=== PATIENT | female | born 1955 | race Caucasian/White ===

== ENCOUNTER 2020-07-14 07:47 | Emergency (ER) | payer OTHER, SELFPAY ==
[2020-07-14] VITALS (54 sets, daily range): BP systolic 105–175; BP diastolic 64–98; PULSE 69–166; RESP 10–28; TEMP 36.4; O2SAT 91–98; BMI 53.0
--- NOTE | 2020-07-14 07:58 | DI.RAD.S_ITS ---
PROCEDURE: XR CHEST 1V INDICATIONS: fast heart rate TECHNIQUE: One view of the chest was acquired. COMPARISON: [facility], CR, XR CHEST 1VW (PORTABLE), 06/24/2015, 15:31. FINDINGS: Surgical changes and devices: None. Lungs and pleura: Lungs are clear. No pleural effusions or pneumothorax. Mediastinum: Mediastinal contours appear normal. Heart size is enlarged, as before. Bones and chest wall: No suspicious bony lesions. Overlying soft tissues appear unremarkable. IMPRESSION: Cardiomegaly. No acute pulmonary findings. Dictated by: Laura Garcia M.D. on 07/14/2020 at 8:50 Approved by: Laura Garcia M.D. on 07/14/2020 at 8:51
--- NOTE | 2020-07-14 08:09 | ED_ITS ---
HPI - Arrhythmia/Palpitations General Chief Complaint: Arrhythmia/Palpitations Stated Complaint: Irregular heart beat and anxiety, feel fluttery Time Seen by Provider: 07/14/20 07:54 Source: patient Mode of arrival: Wheelchair Limitations: no limitations History of Present Illness HPI narrative: 65-year-old female comes to the emergency department with complaint of a fluttery anxious feeling in her chest. Patient states she woke up this morning feeling like her heartbeat was fast. She checked her pulse and it was fast. Patient states she did have difficulty falling asleep and did go to bed until 3:00 a.m.. She denies any prior issues with cardiac arrhythmias in the past. She denies any chest pain or pressure, no shortness of breath, no lightheadedness or passing out, no nausea or vomiting, no pain or pressure radiating from the neck jaw, back or abdomen she denies any nausea or vomiting. No recent diarrhea or constipation. No urinary symptoms. She denies any swelling in her extremities. She does not have any known cardiac history, she does take triamterene and hydrochlorothiazide for hypertension and levothyroxine. She has never had a cardiac catheterization or stress test. She has had multiple surgeries most recently hysterectomy 3 years ago for stage I endometrial cancer, x 3, ruptured uterus. Patient denies any tobacco, alcohol or illicit drugs. Her father had an AR at age 36 and at age 60 of colon cancer, she has 2 sisters she knows 1 has difficulties with blood pressure but no other known cardiac family history. Patient is in the process of establishing with Dr. Monroy, she is accompanied by her . Related Data Previous Rx's Medication Instructions Recorded apixaban [Eliquis] 5 mg PO BID #60 tab 07/14/20 metoprolol tartrate 12.5 mg PO BID #60 tab 07/14/20 Allergies Allergy/AdvReac Type Severity Reaction Status Date / Time No Known Drug Allergies Allergy Verified 07/14/20 08:06 Review of Systems Review of Systems ROS Unobtainable: All systems reviewed & are unremarkable except as noted in HPI and below Patient History Medical History (Updated 07/14/20 @ 10:11 by Whitley Jeffers DO) Hypertension (Acute) Hypothyroid (Acute) Surgical History (Updated 07/14/20 @ 08:11 by Whitley Jeffers DO) H/O: hysterectomy (Acute) Social History Smoking Status: Never smoker Smoking Status: Never smoker alcohol intake frequency: 0-2 drinks per day Substance Use Type: does not use Exam Narrative Exam Narrative: GENERAL: Alert and oriented x three, obese female in mild d istress HEENT: Head normocephalic, atraumatic, EOMI, pupils reactive, face symmetric, moist mucous membranes NECK: Supple, full range of motion CARDIOVASCULAR: Tachycardic and occasional irregular rate and rhythm without murmurs, rubs or gallops. No JVD. No edema bilateral lower extremities or up per extremities. RESPIRATORY: Breath sounds equal bilaterally, no wheezes rales or rhonchi. ABDOMEN: Soft, nontender. Normoactive bowel sounds all 4 quadrants. No guarding or rebound, rigidity, no mass : No CVA tenderness EXTREMITIES: Normal range of motion, no clubbing or edema. Neurovascularly intact NEUROLOGICAL: Cranial nerves II through XII grossly intact. Moving all extremities SKIN: Warm, dry, no petechiae, no rashes or lesions. Initial Vital Signs Initial Vital Signs: Vital Signs Pulse Rate 84 07/14/20 07:55 Pulse Oximetry 98 07/14/20 07:55 Procedures Cardioversion Consent Signed: Yes Indication: rapid afib with rvr not responding to medication Stability: Stable Number of attempts (shocks): 1 Joules used: 150 Cardiac rhythm post-cardioversion: sinus rhythm. Procedural Sedation Consent signed: Yes Time out performed: Yes Indication: cardioversion ASA Class: II Mallampati Airway Classification: Class III Time of Last PO Intake: 22:00 Preparation: color television console monitor applied, pulse oximeter, capnometry used, supplemental O2 applied, suction/airway equipment at bedside and IV secured IV Etomidate dose (mg): 10 ED Sedation Level: Moderate (Concious) Patient Tolerated Procedure: Well Complications: none Scores CHADS-VASc Congestive heart failure: no Hypertension: yes Age 75 years or older: no Diabetes mellitus: no Stroke, TIA, or TE: no Vascular disease: no Age 65 to 74 years: no Sex category (female): Female CHADS-VASc Score: 2 PERC Score Age greater than or equal to 50 years: Yes Heart rate greater than or equal to 100 bpm: Yes Room Air O2 Sat less than 95%: No Unilateral leg swelling: No Recent trauma or surgery: No Hemoptysis: No Prior PE or DVT: No Hormone Use: No Total PERC Score: 2 Wells' Criteria for PE Clinical signs and symptoms of DVT: No PE is #1 Dx or equally likely: No Heart rate > 100: Yes Immobilization at least 3 days or surg in previous 4 weeks: No History of PE or DVT: No Hemoptysis: No Malignancy w/Treatment within 6 months or palliative: No Wells' PE Score total: 1.5 Course Course Course Narrative: Patient had an occasionally irregular rhythm but was an elevated rate so was given 6 mg of adenosine which did slow the patient's heart rate about 100, but did appear to be quite irregular and then returned to the 150-170 range. Plan to start Cardizem with 20mg and likely cardizem gtt. Patient and I briefly discussion cardioversion as she would likely be a candidate but she is reluctant at this time. Patient received 20mg cardizem which improved heart rate to 100-120 range but continues to be irregular and fast with occasionally episodes of 150. Cardizem gtt started with improvement in rate although breakthrough of fast rate intermittently. Orders Ordered: ED Orders 07/14/20 09:20 COVID19 -ED/INPAT/OR/L&D Stat 07/14/20 10:01 CT angio chest PE protocol Stat Discontinued Medications Adenosine (Adenocard) 6 mg IV NOW ONE Stop: 07/14/20 08:04 Last Admin: 07/14/20 08:16 Dose: 6 mg Documented by: ASNDRA Apixaban (Eliquis) 5 mg PO NOW ONE Stop: 07/14/20 11:12 Last Admin: 07/14/20 11:21 Dose: 5 mg Documented by: JENNY Diltiazem HCl (Cardizem) 20 mg IV NOW ONE Stop: 07/14/20 08:24 Last Admin: 07/14/20 08:26 Dose: 20 mg Documented by: SANDRA Diltiazem HCl (Cardizem) 20 mg IV NOW ONE Stop: 07/14/20 08:26 Last Admin: 07/14/20 09:03 Dose: Not Given Documented by: JENNY Etomidate (Amidate) 10 mg IV NOW ONE Stop: 10/25/20 11:18 Last Admin: 07/14/20 12:00 Dose: 10 mg Documented by: JENNY Sodium Chloride (Normal Saline 0.9%) 1,000 mls @ 1,000 mls/hr IV BOLUS ONE Stop: 07/14/20 08:56 Last Infusion: 07/14/20 11:55 Dose: 0 mls/hr Documented by: Infusion: 07/14/20 08:38 Dose: 200 mls/hr Documented by: Admin: 07/14/20 08:16 Dose: 1,000 mls/hr Documented by: SANDRA DILTIAZEM (Diltiazem 125 Mg/125 Ml-D5w) 125 mg in 125 mls @ 5 mls/hr IV TITRATE MIREILLE; Protocol Last Titration: 07/14/20 11:55 Dose: 0 mg/hr, 0 mls/hr Documented by: Titration: 07/14/20 09:52 Dose: 15 mg/hr, 15 mls/hr Documented by: Titration: 07/14/20 09:02 Dose: 10 mg/hr, 10 mls/hr Documented by: Admin: 07/14/20 08:36 Dose: 5 mg/hr, 5 mls/hr Documented by: SANDRA Potassium Chloride (Potassium Chloride) 40 meq PO NOW ONE Stop: 07/14/20 09:26 Last Admin: 07/14/20 09:58 Dose: 40 meq Documented by: JENNY Consultations Consultation #1: Spoke with Cardiology, Dr. Kennedy recommends cardioversion with eliquis 5mg po prior to procedure and to start on beta alessandra as outpatient. Time: 10:50 Vital Signs Vital signs: Vital Signs - 8 hr 07/14/20 09:59 07/14/20 10:00 07/14/20 10:05 Pulse Rate 142 H 141 H 141 H Respiratory Rate 20 21 21 Blood Pressure 137/83 Blood Pressure [Right Wrist] Pulse Oximetry 95 95 95 07/14/20 10:10 07/14/20 10:30 07/14/20 10:32 Pulse Rate 141 H 138 H 138 H Respiratory Rate 20 20 10 L Blood Pressure 141/88 H Blood Pressure [Right Wrist] Pulse Oximetry 95 96 07/14/20 10:35 07/14/20 10:40 07/14/20 10:45 Pulse Rate 138 H 138 H 140 H Respiratory Rate 17 18 14 Blood Pressure 128/66 Blood Pressure [Right Wrist] Pulse Oximetry 95 94 95 07/14/20 10:50 07/14/20 10:55 07/14/20 11:00 Pulse Rate 140 H 138 H 141 H Respiratory Rate 19 18 16 Blood Pressure 129/73 Blood Pressure [Right Wrist] Pulse Oximetry 95 95 94 07/14/20 11:05 07/14/20 11:10 07/14/20 11:15 Pulse Rate 140 H 140 H 141 H Respiratory Rate 18 16 17 Blood Pressure 141/79 H Blood Pressure [Right Wrist] Pulse Oximetry 95 95 95 07/14/20 11:22 07/14/20 11:25 07/14/20 11:30 Pulse Rate 140 H 141 H 142 H Respiratory Rate 18 Blood Pressure Blood Pressure [Right Wrist] Pulse Oximetry 95 95 95 07/14/20 11:35 07/14/20 11:36 07/14/20 11:40 Pulse Rate 141 H 140 H 142 H Respiratory Rate 28 H 18 15 Blood Pressure 141/80 H Blood Pressure [Right Wrist] Pulse Oximetry 95 95 95 07/14/20 11:45 07/14/20 11:50 07/14/20 11:55 Pulse Rate 142 H 142 H 143 H Respiratory Rate 25 H 18 18 Blood Pressure Blood Pressure [Right Wrist] Pulse Oximetry 94 93 93 07/14/20 11:56 07/14/20 12:00 07/14/20 12:05 Pulse Rate 143 H 143 H 80 Respiratory Rate 17 16 18 Blood Pressure 147/83 H 135/77 Blood Pressure [Right Wrist] 141/80 H Pulse Oximetry 95 94 94 07/14/20 12:10 07/14/20 12:11 07/14/20 12:15 Pulse Rate 78 77 77 Respiratory Rate 22 15 19 Blood Pressure 118/71 122/70 Blood Pressure [Right Wrist] 122/70 Pulse Oximetry 94 94 94 07/14/20 12:20 07/14/20 12:25 07/14/20 12:30 Pulse Rate 75 74 78 Respiratory Rate 20 19 20 Blood Pressure 112/66 110/66 114/68 Blood Pressure [Right Wrist] Pulse Oximetry 94 94 94 07/14/20 12:35 07/14/20 12:40 07/14/20 12:45 Pulse Rate 71 69 70 Respiratory Rate 10 L 16 18 Blood Pressure 112/67 122/65 117/67 Blood Pressure [Right Wrist] Pulse Oximetry 93 91 94 07/14/20 12:50 07/14/20 12:55 07/14/20 13:00 Pulse Rate 71 69 71 Respiratory Rate 24 18 21 Blood Pressure 116/67 113/66 113/64 Blood Pressure [Right Wrist] Pulse Oximetry 94 93 95 MDM - Arrhythmia/Palpitations Lab Data Attestation: I reviewed the patient's lab results. Lab results narrative: Patient's potassium is low at 3.1 and replaced orally. CBC,coags do not show major change. Ddimer is above age cutoff at 89 even with age adjustment. Glucose is 119, with normal troponin and slightly elevated bnp at 342. TSH is normal. covid 19 is negative. Result diagrams: 07/14/20 08:10 07/14/20 08:50 Labs: Lab Results 07/14/20 07/14/20 07/14/20 Range/Units 08:10 08:10 08:50 WBC 8.6 (4.5-11.0) X10^3/uL RBC 4.77 (4.0-5.2) X10^6/uL Hgb 14.1 (12.0-16.0) g/dL Hct 42.0 (36-46) % MCV 87.9 (80-100) fL MCH 29.6 (26-34) PG MCHC 33.7 (30-36) % RDW 13.5 (11.6-14.8) % Plt Count 262 (150-400) X10^3/uL Neut % (Auto) 50.5 (50-75) % Lymph % (Auto) 37.6 (25-40) % Wilson % (Auto) 7.8 (3-14) % Eos % (Auto) 3.2 (2-4) % Baso % (Auto) 0.9 (0-2) % Neut # (Auto) 4300 (5742-8511) /uL Lymph # (Auto) 3200 (9832-4451) /uL Wilson # (Auto) 700 (0-900) /uL Eos # (Auto) 300 (0-450) /uL Baso # (Auto) 100 (0-100) /uL PT 10.9 (10.1-12.7) SECONDS INR 0.9 (0.9-1.3) APTT 33 (26.4-36.2) SECONDS D-Dimer (<230) ng/mL Sodium 139 (137-145) mmol/L Potassium 3.1 L (3.4-5.1) mmol/L Chloride 105 (98-107) mmol/L Carbon Dioxide 30 (22-32) mmol/L BUN 16 (7-17) mg/dL Creatinine 0.59 (0.52-1.04) mg/dL Estimated GFR > 60.0 (>60) mL/min BUN/Creatinine Ratio 27.1 H (6-22) Glucose 119 H (80-110) mg/dL Calcium 8.7 (8.4-10.2) mg/dL Magnesium (1.6-2.3) mg/dL Total Bilirubin 0.9 (0.2-1.3) mg/dL AST 24 (14-36) IU/L ALT 29 (<35) IU/L Alkaline Phosphatase 51 (38-126) U/L Total Creatine Kinase (30-135) U/L CK-MB (CK-2) CK-MB (CK-2) Rel Index Troponin I (0.01-0.034) ng/mL NT-Pro-B Natriuret Pep (<125) pg/mL Total Protein 6.6 (6.3-8.2) g/dL Albumin 3.9 (3.5-5.0) g/dL Globulin 2.7 (1.7-4.1) g/dL Albumin/Globulin Ratio 1.4 (1.0-2.8) TSH (0.47-4.68) uIU/mL COVID-19 PCR (Negative) 07/14/20 07/14/20 07/14/20 Range/Units 08:50 08:50 08:50 WBC (4.5-11.0) X10^3/uL RBC (4.0-5.2) X10^6/uL Hgb (12.0-16.0) g/dL Hct (36-46) % MCV (80-100) fL MCH (26-34) PG MCHC (30-36) % RDW (11.6-14.8) % Plt Count (150-400) X10^3/uL Neut % (Auto) (50-75) % Lymph % (Auto) (25-40) % Wilson % (Auto) (3-14) % Eos % (Auto) (2-4) % Baso % (Auto) (0-2) % Neut # (Auto) (4030-1193) /uL Lymph # (Auto) (8317-9277) /uL Wilson # (Auto) (0-900) /uL Eos # (Auto) (0-450) /uL Baso # (Auto) (0-100) /uL PT (10.1-12.7) SECONDS INR (0.9-1.3) APTT (26.4-36.2) SECONDS D-Dimer (<230) ng/mL Sodium (137-145) mmol/L Potassium (3.4-5.1) mmol/L Chloride (98-107) mmol/L Carbon Dioxide (22-32) mmol/L BUN (7-17) mg/dL Creatinine (0.52-1.04) mg/dL Estimated GFR (>60) mL/min BUN/Creatinine Ratio (6-22) Glucose (80-110) mg/dL Calcium (8.4-10.2) mg/dL Magnesium 1.9 (1.6-2.3) mg/dL Total Bilirubin (0.2-1.3) mg/dL AST (14-36) IU/L ALT (<35) IU/L Alkaline Phosphatase (38-126) U/L Total Creatine Kinase 62 (30-135) U/L CK-MB (CK-2) TNP CK-MB (CK-2) Rel Index TNP Troponin I 0.012 (0.01-0.034) ng/mL NT-Pro-B Natriuret Pep 342 H (<125) pg/mL Total Protein (6.3-8.2) g/dL Albumin (3.5-5.0) g/dL Globulin (1.7-4.1) g/dL Albumin/Globulin Ratio (1.0-2.8) TSH 2.82 (0.47-4.68) uIU/mL COVID-19 PCR (Negative) 07/14/20 07/14/20 Range/Units 08:50 09:20 WBC (4.5-11.0) X10^3/uL RBC (4.0-5.2) X10^6/uL Hgb (12.0-16.0) g/dL Hct (36-46) % MCV (80-100) fL MCH (26-34) PG MCHC (30-36) % RDW (11.6-14.8) % Plt Count (150-400) X10^3/uL Neut % (Auto) (50-75) % Lymph % (Auto) (25-40) % Wilson % (Auto) (3-14) % Eos % (Auto) (2-4) % Baso % (Auto) (0-2) % Neut # (Auto) (6067-4980) /uL Lymph # (Auto) (7342-1016) /uL Wilson # (Auto) (0-900) /uL Eos # (Auto) (0-450) /uL Baso # (Auto) (0-100) /uL PT (10.1-12.7) SECONDS INR (0.9-1.3) APTT (26.4-36.2) SECONDS D-Dimer 387 H (<230) ng/mL Sodium (137-145) mmol/L Potassium (3.4-5.1) mmol/L Chloride (98-107) mmol/L Carbon Dioxide (22-32) mmol/L BUN (7-17) mg/dL Creatinine (0.52-1.04) mg/dL Estimated GFR (>60) mL/min BUN/Creatinine Ratio (6-22) Glucose (80-110) mg/dL Calcium (8.4-10.2) mg/dL Magnesium (1.6-2.3) mg/dL Total Bilirubin (0.2-1.3) mg/dL AST (14-36) IU/L ALT (<35) IU/L Alkaline Phosphatase (38-126) U/L Total Creatine Kinase (30-135) U/L CK-MB (CK-2) CK-MB (CK-2) Rel Index Troponin I (0.01-0.034) ng/mL NT-Pro-B Natriuret Pep (<125) pg/mL Total Protein (6.3-8.2) g/dL Albumin (3.5-5.0) g/dL Globulin (1.7-4.1) g/dL Albumin/Globulin Ratio (1.0-2.8) TSH (0.47-4.68) uIU/mL COVID-19 PCR Negative (Negative) Point of Care Testing Test Results Not applicable Imaging Data Chest x-ray: Radiologist's Impresson: [address] [address] XRay Report Signed Patient: Kiana Altamirano DMR#: [id number] : 7Acct:[id number] Age/Sex: 65 / FDate of Service: 07/14/20 Loc: ED Accession Number: [id number] Procedure: XR chest 1V Ordering Provider: Whitley Jeffers D.O. PROCEDURE: XR CHEST 1V INDICATIONS: fast heart rate TECHNIQUE: One view of the chest was acquired. COMPARISON: [facility], , XR CHEST 1VW (PORTABLE), 06/24/2015, 15:31. FINDINGS: Surgical changes and devices: None. Lungs and pleura: Lungs are clear. No pleural effusions or pneumothorax. Mediastinum: Mediastinal contours appear normal. Heart size is enlarged, as before. Bones and chest wall: No suspicious bony lesions. Overlying soft tissues a ppear unremarkable. IMPRESSION: Cardiomegaly. No acute pulmonary findings. Dictated by: Laura Garcia M.D. on 07/14/2020 at 8:50 Approved by: Laura Garcia M.D. on 07/14/2020 at 8:51 CT scan - chest: Radiologist's Impresson: NO PE, positive for cardiomegaly. ECG Data Attestation: I personally reviewed and interpreted this ECG as follows: Prior ECG tracings: not available for review Interpretation: Rate of 156, QRS of 100, QTc of 431 patient has regular regular heart rate with rapid ventricular response. No ST elevation appreciated, patient does have some depression in lateral leads V4 through 6 approximately 1 mm. EKG#2. AFib with RVR, rate of 160 QRS of [address]TC [address] No new [address] changes appreciated. EKG3. Sinus rhythm rate of 76 P are 152 QRS of 104 and QTC of 450. No ST el evation or depression appreciated. MDM Narrative Medical decision making narrative: Patient comes in with AFib with RVR, marco ent's did respond to Cardizem initially but then heart rate became more consistent in the 140s. Patient case was discussed with Cardiology and he recommends a dose of Eliquis and metoprolol at home. Patient is open to cardioversion. She tolerated the procedure well and resume to normal sinus rhyt hm. Potassium was somewhat low and was replaced. Discharge Plan Departure Patient Disposition: Home Clinical Impression: Atrial fibrillation with RVR, Hypokalemia Discharge Date/Time: 07/14/20 13:36 Instructions: DI for Atrial Fibrillation Activity Restrictions/Additional Instructions: Follow-up with cardiology in the next 1-2 weeks for recheck. Call for an appointment on Wednesday morning. Having a repeat potassium level checked in the next several days. Continue metoprolol as prescribed until you see Cardiology. 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 Continue home medications as prescribed. Prescriptions: New metoprolol tartrate 25 mg tablet 12.5 mg PO BID Qty: 60 RF: 0 Eliquis 5 mg tablet 5 mg PO BID Qty: 60 RF: 0 Referrals: Jyoti Kennedy MD [Physician] - Jocelyn Monroy DO [Physician] -
[2020-07-14] MEDS: SODIUM CHLORIDE 0.9% 1,000 ML 1000 ML IV (08:16)
[2020-07-14] MEDS: ADENOSINE 6 MG/2 ML VIAL IV (08:16)
[2020-07-14 08:20] LABS: Add Manual Diff / Slide Review NO; Basophils Absolute Auto 100 /uL (0-100); Basophils Percent Auto 0.9 % (0-2); Eosinophils Absolute Auto 300 /uL (0-450); Eosinophils Percent Auto 3.2 % (2-4); Hemoglobin 14.1 g/dL (12.0-16.0); Lymphocytes Absolute Auto 3200 /uL (1100-4500); Lymphocytes Percent Auto 37.6 % (25-40); Mean Corpuscular HGB Conc 33.7 % (30-36); Mean Corpuscular Hemoglobin 29.6 PG (26-34); Mean Corpuscular Volume 87.9 fL (80-100); Monocytes Absolute Auto 700 /uL (0-900); Monocytes Percent Auto 7.8 % (3-14); Neutrophils Absolute Auto 4300 /uL (1500-7000); Neutrophils Percent Auto 50.5 % (50-75); Platelet Count 262 X10^3/uL (150-400); Red Blood Cell Count 4.77 X10^6/uL (4.0-5.2); Red Cell Distribution Width 13.5 % (11.6-14.8); White Blood Cell Count 8.6 X10^3/uL (4.5-11.0)
[2020-07-14] MEDS: dilTIAZem 5 MG/ML SDV 20 MG IV (08:26)
[2020-07-14 08:29] LABS: INR 0.9 (0.9-1.3); Prothrombin Time 10.9 SECONDS (10.1-12.7)
[2020-07-14 08:31] LABS: PTT Partial Thromboplastin Tim 33 SECONDS (26.4-36.2)
[2020-07-14] MEDS: DILTIAZEM 125 MG/125 ML PIGGYBACK IV (08:36)
[2020-07-14 08:45] LABS: Calcium 8.7 mg/dL (8.4-10.2); Carbon Dioxide 30 mmol/L (22-32)
[2020-07-14 08:56] LABS: Troponin I 0.012 ng/mL (0.01-0.034)
[2020-07-14 09:15] LABS: Thyroid Stimulating Hormone 2.82 uIU/mL (0.47-4.68)
[2020-07-14 09:16] LABS: Alanine Aminotransferase 29 IU/L (<35); Albumin 3.9 g/dL (3.5-5.0); Albumin Globulin Ratio 1.4 (1.0-2.8); Alkaline Phosphatase 51 U/L (38-126); Aspartate Aminotransferase 24 IU/L (14-36); BUN Creatinine Ratio 27.1 (6-22); Bilirubin Total 0.9 mg/dL (0.2-1.3); Blood Urea Nitrogen 16 mg/dL (7-17); Chloride 105 mmol/L (98-107); Creatine Kinase 62 U/L (30-135); Estimated Glomerular Filt Rate > 60.0 mL/min (>60); Globulin 2.7 g/dL (1.7-4.1); Glucose 119 mg/dL (80-110); HEMOLYSIS < 15 (0-50); Magnesium 1.9 mg/dL (1.6-2.3); Potassium 3.1 mmol/L (3.4-5.1); Sodium 139 mmol/L (137-145); Total Protein 6.6 g/dL (6.3-8.2)
[2020-07-14 09:22] LABS: NT-proBNP (BNP-Adult 18+) 342 pg/mL (<125)
[2020-07-14 09:40] LABS: D Dimer 387 ng/mL (<230)
[2020-07-14 09:43] LABS: COVID19 -Nasal RAPID Negative (Negative)
[2020-07-14] MEDS: POTASSIUM CHLORIDE 20 MEQ/15 ML UDC 40 MEQ PO (09:58)
--- NOTE | 2020-07-14 10:01 | DI.CT.S_ITS ---
PROCEDURE: CT ANGIO CHEST PE PROTOCOL INDICATIONS: atrial fibrillation w/ rvr, r/o pe TECHNIQUE: After the administration of intravenous contrast, 2 mm thick sections acquired from the pulmonary apices to the posterior costophrenic angles. 3-dimensional maximum intensity projection (MIP) coronal and sagittal reformats were then acquired through the thorax. For radiation dose reduction, the following was used: automated exposure control, adjustment of mA and/or kV according to patient size. COMPARISON: None. FINDINGS: Image quality: Excellent. Pulmonary arteries: Pulmonary arteries are normal in size, and demonstrate no intraluminal filling defects to suggest central pulmonary embolism. Lungs and pleura: Lungs are clear. No pleural effusions or pneumothorax. Central and peripheral airways are patent. Mediastinum: Heart size is enlarged, without pericardial effusion. No mediastinal or hilar adenopathy. Thoracic aorta is normal in caliber and enhancement. Scattered atheromatous calcifications are present within the aortic arch. Esophagus is normal in caliber, without hiatal hernia. Bones and chest wall: No suspicious bony lesions. Ribs and thoracic spine appear intact throughout. Thyroid gland is unremarkable . No axillary or supraclavicular adenopathy. Abdomen: Visualized upper abdominal solid organs appear normal in the early arterial phase of enhancement. IMPRESSION: 1. No acute pulmonary embolus. 2. Cardiomegaly. Dictated by: Laura Garcia M.D. on 07/14/2020 at 10:34 Approved by: Laura Garcia M.D. on 07/14/2020 at 10:36
[2020-07-14] MEDS: APIXABAN 5 MG TABLET PO (11:21)
[2020-07-14] MEDS: ETOMIDATE 2 MG/ML 10 ML VIAL 10 MG IV (12:00)
== END 2020-07-14 13:36 | disposition home or self-care (01) ==
PROVIDERS: Emergency Provider Emergency Medicine
DX: I48.91 Unspecified atrial fibrillation (principal); E87.6 Hypokalemia; I10 Essential (primary) hypertension; E03.9 Hypothyroidism, unspecified; R00.0 Tachycardia, unspecified
CPT/HCPCS: 36415; 71045; 71275; 80053; 82550; 83735; 83880; 84443; 84484; 85025; 85379; 85610; 85730; 87635; 92960; 93005; 93010; 94770; 96365; 96366; 96375; 99152; 99285; J0153; Q9967

== ENCOUNTER → 2020-07-23 10:26 | Outpatient (CLI) | payer OTHER, SELFPAY ==
[2020-07-23 12:10] LABS: INR 1.1 (0.9-1.3); Prothrombin Time 12.7 SECONDS (10.1-12.7)
[2020-07-23 12:30] LABS: BUN Creatinine Ratio 21.7 (6-22); Blood Urea Nitrogen 15 mg/dL (7-17); Calcium 9.2 mg/dL (8.4-10.2); Carbon Dioxide 33 mmol/L (22-32); Chloride 99 mmol/L (98-107); Cholesterol 162 mg/dL (140-199); Estimated Glomerular Filt Rate > 60.0 mL/min (>60); Glucose 100 mg/dL (80-110); HDL Cholesterol 50 mg/dL (40-60); HEMOLYSIS < 15 (0-50); LDL Cholesterol Calculated 98 mg/dL (<100); Magnesium 2.1 mg/dL (1.6-2.3); Potassium 3.8 mmol/L (3.4-5.1); Sodium 139 mmol/L (137-145); Triglycerides 70 mg/dL (35-150)
== END ==
PROVIDERS: PCP Family Medicine; Referring Provider Family Medicine; Visit Provider Family Medicine
DX: E66.9 Obesity, unspecified (principal); E87.6 Hypokalemia; I10 Essential (primary) hypertension; I48.91 Unspecified atrial fibrillation
CPT/HCPCS: 36415; 80048; 80061; 83735; 85610

== ENCOUNTER → 2020-07-29 14:04 | Outpatient (CLI) | payer OTHER, SELFPAY ==
--- NOTE | 2020-08-14 08:48 | P.HOLT.S_ITS ---
Dynamite [employer]ooter Report Referral & Results Date Patient Seen: 07/29/20 Requesting provider: Jocelyn Monroy Indication: Atrial fibrillation Duration of monitoring (days): 3 Diary information: There were no patient triggered events and only 1 patient diary entry Patient's diary entry was associated with (within 45 seconds) sinus rhythm and ventricular ectopy Data: Minimum heart rate identified was 45 beats per minute at 01:14 a.m. on 07/30/2020 Maximum sinus heart rate identified was 124 beats per minute at 10:35 on 08/01/2020 Maximum overall heart rate was 184 beats per minute at 18:28 on 07/29/2020 during a 13 beat run of SVT Less than 1% of identified beats were supraventricular ectopic in origin Approximately 5.2% of identified beats were ventricular ectopic in origin which includes a 32 second run of ventricular bigeminy and 35 second run of ventricular trigeminy There is 6 runs of SVT the longest being 13 beats at a rate of 184 beats per minute as above. 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 No episodes of atrial fibrillation identified on this study
== END ==
PROVIDERS: PCP Family Medicine; Referring Provider Family Medicine; Visit Provider Family Medicine
DX: I48.91 Unspecified atrial fibrillation (principal)
CPT/HCPCS: 0296T; 0298T

== ENCOUNTER → 2020-08-13 14:43 | Outpatient (CLI) | payer OTHER, SELFPAY ==
--- NOTE | 2020-08-13 14:44 | DI.ECHO.S_ITS ---
[place] +---------+ [facility] +---------+ : : [address] [place] : : : : [id number] : : : : Phone: [phone] Echocardiogram Report + + :Name: AMY SANDERS Study Date: 08/13/2020 Height: 62 in : :[facility] Weight: 290 lb : : Gender: Female BSA: 2.2 m2 : :: 1955 Age: 65 yrs BP: 149/87 mmHg: :Reason For Study: ATRIAL FIBRILLATION : :Ordering Physician: JAZMYN, : :KAUSHAL Performed By: Judit Zhang : :Referring: KAUSHAL ELDRIDGE : + + Interpretation Summary The study quality was technically difficult. Probable mild LVH There is an anterior echo-free space consistent with a fat pad. There is no significant valvular heart disease. Procedure: A two-dimensional transthoracic echocardiogram with color flow and Doppler was performed. The study quality was technically difficult. There is no prior echocardiogram noted for this patient. Most of the acoustic windows were suboptimal, but the best imaging was obtained from the apical window. The patient was in sinus rhythm with heart rates between 66-76 bpm during the exam. Left Ventricle: The left ventricle is normal in size. Probable mild LVH. The ejection fraction is estimated to be 65-70%. Left ventricular wall motion is normal. Diastolic parameters suggest a pseudonormalization pattern, consistent with probable elevated filling pressures. Right Ventricle: The right ventricle is normal in size and function. Atria: The left atrium is mildly dilated. Right atrial size is normal. The interatrial septum grossly appears intact with no obvious evidence for an atrial septal defect. Mitral Valve: The mitral valve is normal in structure and function. There is mild mitral annular calcification. There is no mitral regurgitation noted. Aortic Valve: The aortic valve is not well visualized. There is no aortic valve stenosis. No aortic regurgitation is present. Tricuspid Valve: The tricuspid valve is not well visualized, but is grossly normal. No tricuspid regurgitation. Pulmonic Valve: The pulmonic valve is not well visualized. There is no pulmonic valvular regurgitation. Great Vessels: The aortic root is normal size. The ascending aorta is mildly enlarged. The IVC is of normal diameter and collapses greater than 50% with a sniff. This suggests a low right atrial pressure of 3 mm Hg. Pericardium/ Pleura There is no pericardial effusion. There is an anterior echo-free space consistent with a fat pad. There is no pleural effusion. MMode/2D Measurements & Calculations LVIDd: 4.5 cm LVOT diam: 2.4 cm LVIDs: 2.9 cm Ao root diam: 3.2 cm FS: 36.3 % asc Aorta Diam: 3.5 cm IVSd: 1.3 cm Ao Arch Diam (Prox Trans): 2.8 cm LVPWd: 1.3 cm LV conrad. diameter/BSA (cm/m^2): 2.0 LV sys. diameter/BSA (cm/m^2): 1.3 LA A2 area: 22.7 cm2 RA long axis: 6.0 cm LA A4 area: 25.8 cm2 RA area: 22.3 cm2 LA length (vol): 5.9 cm RA vol: 70.9 ml LA vol: 84.9 ml RA : 31.7 ml/m2 LA vol index: 37.9 ml/m2 IVC diam: 1.2 cm RVD1 (basal): 3.6 cm TAPSE: 1.8 cm Doppler Measurements & Calculations Ao V2 max: 149.1 cm/sec LVOT Max Arturo: 87.2 cm/sec Ao V2 mean: 91.7 cm/sec LV V1 max P.0 mmHg Ao max P.9 mmHg LV V1 VTI: 17.4 cm Ao mean P.1 mmHg ANETTE(I,D): 2.5 cm2 Ao V2 VTI: 30.4 cm ANETTE(V,D): 2.6 cm2 sev ratio: 0.57 ANETTE indexed to BSA (cm^2/m^2): 1.1 MV E max arturo: 84.7 cm/sec PA V2 max: 73.7 cm/sec MV A max arturo: 87.3 cm/sec PA V2 mean: 51.3 cm/sec MV E/A: 0.97 PA mean P.2 mmHg Med Peak E' Arturo: 4.5 cm/sec PA pr(Accel): 49.9 mmHg E/E' med: 18.9 Lat Peak E' Arturo: 6.5 cm/sec E/E' lat: 13.0 E/e' average: 16.0 MV dec time: 0.31 sec SV(LVOT): 76.8 ml Reading Physician:04:20 PM
== END ==
PROVIDERS: PCP Family Medicine; Referring Provider Family Medicine; Visit Provider Family Medicine
DX: I48.91 Unspecified atrial fibrillation (principal); I77.89 Other specified disorders of arteries and arterioles
CPT/HCPCS: 93306

== ENCOUNTER → 2020-12-20 13:31 | Outpatient (CLI) | payer OTHER, SELFPAY ==
[2020-12-20] MEDS: COVID-19 VACC #1, MRNA(MOD) 100 MCG/0.5 ML VIAL IM (13:42)
== END ==
PROVIDERS: PCP Family Medicine; Visit Provider Internal Medicine
DX: Z23 Encounter for immunization (principal)
CPT/HCPCS: 0011A; 91301

== ENCOUNTER 2021-01-06 03:55 | Emergency (ER) | payer OTHER, SELFPAY ==
[2021-01-06 03:59] VITALS: BP 138/103; PULSE 150; RESP 25; TEMP 37.1; O2SAT 96; BMI 56.2
[2021-01-06] MEDS: ONDANSETRON 4 MG/2 ML INJ IV (04:21)
[2021-01-06] MEDS: SODIUM CHLORIDE 0.9% 1,000 ML 125 ML IV (04:22)
[2021-01-06 04:25] LABS: Add Manual Diff / Slide Review NO; Basophils Absolute Auto 0 /uL (0-100); Basophils Percent Auto 0.5 % (0-2); Eosinophils Absolute Auto 200 /uL (0-450); Eosinophils Percent Auto 2.6 % (2-4); Hematocrit 41.9 % (36-46); Hemoglobin 13.9 g/dL (12.0-16.0); Lymphocytes Absolute Auto 3700 /uL (1100-4500); Lymphocytes Percent Auto 43.2 % (25-40); Mean Corpuscular HGB Conc 33.1 % (30-36); Mean Corpuscular Hemoglobin 29.4 PG (26-34); Mean Corpuscular Volume 88.8 fL (80-100); Monocytes Absolute Auto 500 /uL (0-900); Neutrophils Absolute Auto 4100 /uL (1500-7000); Neutrophils Percent Auto 47.7 % (50-75); Platelet Count 272 X10^3/uL (150-400); Red Blood Cell Count 4.72 X10^6/uL (4.0-5.2); Red Cell Distribution Width 13.1 % (11.6-14.8); White Blood Cell Count 8.5 X10^3/uL (4.5-11.0)
[2021-01-06 04:33] LABS: BUN Creatinine Ratio 21.1 (6-22); Blood Urea Nitrogen 16 mg/dL (7-17); Calcium 9.5 mg/dL (8.4-10.2); Carbon Dioxide 26 mmol/L (22-32); Chloride 102 mmol/L (98-107); Creatine Kinase 51 U/L (30-135); Estimated Glomerular Filt Rate > 60.0 mL/min (>60); Glucose 112 mg/dL (80-110); HEMOLYSIS < 15 (0-50); Magnesium 1.9 mg/dL (1.6-2.3); Potassium 3.5 mmol/L (3.4-5.1); Sodium 138 mmol/L (137-145)
[2021-01-06 04:41] LABS: NT-proBNP (BNP-Adult 18+) 274 pg/mL (<125)
[2021-01-06 04:44] LABS: Troponin I < 0.012 ng/mL (0.01-0.034)
[2021-01-06 04:46] VITALS: BP 118/71; PULSE 70; RESP 18; O2SAT 94
[2021-01-06 04:50] VITALS: BP 123/73; PULSE 71; RESP 22; O2SAT 95
[2021-01-06] MEDS: propofoL 200 MG/20 ML VIAL 100 MG IV (04:50)
[2021-01-06 04:55] VITALS: BP 127/76; PULSE 70; RESP 20; O2SAT 95
[2021-01-06 05:00] VITALS: BP 122/76; PULSE 69; RESP 17; O2SAT 96
--- NOTE | 2021-01-06 05:09 | ED.ARRPALP ---
HPI - Arrhythmia/Palpitations General Chief Complaint: Arrhythmia/Palpitations Stated Complaint: states rapid heart rate Time Seen by Provider: 01/06/21 03:56 Source: patient Mode of arrival: Wheelchair Limitations: no limitations History of Present Illness HPI narrative: 65-year-old female nonsmoker with history of atrial fibrillation, on Eliquis presents with her in the chief complaint of feeling anxious and noting a rapid irregular heart rhythm since waking about 3:00 a.m.. She states she went to bed largely in her normal state of health and woke up, with a sensation that she had to urinate when she noted how she was feeling. She has palpitations and a rapid rate but denies any significant chest pain or shortness of breath. She is not dizzy nor lightheaded but does feel a bit fatigued. She has been on Eliquis for quite some time and denies missing even a single dose. MD complaint: rapid heart beat and heart racing Onset (ago): hour(s) Duration: constant Severity: moderate Context: occurred during rest Arrhythmia history: atrial fibrillation Treatments prior to arrival: vagal maneuvers and beta-alessandra Related Data Home Medications Medication Instructions Recorded Confirmed levothyroxine 25 mcg capsule 25 mcg PO DAILY 07/19/20 07/19/20 triamterene 37.5 1 tab PO DAILY 07/19/20 07/19/20 mg-hydrochlorothiazide 25 mg tablet Previous Rx's Medication Instructions Recorded apixaban 5 mg tablet 5 mg PO BID #180 tab 08/19/20 metoprolol tartrate 25 mg tablet 12.5 mg PO BID #60 tab 11/07/20 Allergies Allergy/AdvReac Type Severity Reaction Status Date / Time Penicillins Allergy Unk Verified 07/19/20 16:43 Review of Systems Constitutional Constitutional: Denies chills, Denies fatigue, Denies fever(s), Denies frequent falls, Denies lethargy and Denies weakness Eyes Eyes: Denies change in vision, Denies eye discharge, Denies irritation and Denies loss of vision ENT Ears, Nose, Mouth, and Throat: Denies change in voice, Denies dizziness, Denies neck pain, Denies sore throat and Denies throat swelling Cardiovascular Cardiovascular: Denies chest pain, Reports irregular heart rhythm, Denies lightheadedness, Reports palpitations, Denies dyspnea, Denies dyspnea on exertion and Denies orthopnea Respiratory Respiratory: Denies cough, Denies dyspnea, Denies dyspnea on exertion and Denies wheezing Gastrointestinal Gastrointestinal: Denies abdominal pain, Denies change in bowel habits, Denies diarrhea, Denies nausea and Denies vomiting Musculoskeletal Musculoskeletal: Denies neck pain and Denies numbness Integumentary/Breasts Skin/Breast: Denies pruritus, Denies erythema, Denies rash and Denies wounds Neurologic Neurologic: Denies behavioral changes, Denies confusion, Denies dizziness, Denies frequent falls, Denies loss of vision, Denies numbness and Denies weakness Psychiatric Psychiatric: Denies anxiety, Denies behavioral changes, Denies confusion, Denies depression, Denies homicidal ideation and Denies suicidal ideation Endocrine Endocrine: Denies fatigue, Denies flushing and Reports palpitations Hematologic/Lymphatic Hematologic/Lymphatic: Denies easy bruising Allergic/Immunologic Allergic/Immunologic: Denies urticaria, Denies throat swelling and Denies wheezing Patient History Medical History Anxiety (~1998) Atrial fibrillation, new onset Chicken pox Endometrial cancer, grade I (~02/2017) H/O Hendricks's palsy (~1988) History of endometrial cancer Hx of ectopic Hypertension (~2014) Hypothyroid (~2014) Measles Meningitis Mumps Pharyngeal spasm Plantar warts (~1998) Pulmonary nodule less than 6 cm determined by computed tomography of lung Rubella Tracheitis (~2015) Traumatic brain injury (~1998) Surgical History Anesthesia H/O section H/O: hysterectomy (~2016) History of hernia repair (~1989) History of (~1987) Family History Father CAD (coronary artery disease) Hyperlipidemia Hypertension Colon cancer History of heart disease Myocardial infarct Mother Diabetes mellitus History of heart disease Hypertension Stroke Myocardial infarct Sister Hypertension Ventricular fibrillation History of heart disease Sister Hypertension COPD (chronic obstructive pulmonary disease) Mental health problem Grandmother Dementia Social History marital status: number of children: 3 household members: spouse lives independently: Yes housing: house education level: college occupational status: employed current occupational exposures/hazards: No 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 Lived in [place], raised her kids [place] [facility] program Smoking Status: Never smoker alcohol intake frequency: 0-2 drinks per day Substance Use Type: does not use Exam Narrative Exam Narrative: GENERAL: [65] year old patient appears stated age. Well-nourished, well-developed patient, in mild distress. Anxious HEAD: Atraumatic. Normocephalic. EYES: Pupils equal round and reactive. Extraocular motions intact. No scleral icterus. No injection or drainage. ENT: Nose without bleeding, purulent drainage. Throat without erythema, tonsillar hypertrophy or exudate. Airway patent. NECK: Trachea midline. Non tender CARDIOVASCULAR: Rapid and irregular rhythm without murmurs, gallops, or rubs. RESPIRATORY: Clear to auscultation. Breath sounds equal bilaterally. No wheezes, rales, or rhonchi. GASTROINTESTINAL: Abdomen soft, non-tender, nondistended. EXTREMITIES: No edema or joint tenderness. BACK: Nontender without deformity or crepitance. No flank tenderness. NEURO: AOx3. SKIN: No rash or erythema of visible areas Initial Vital Signs Initial Vital Signs: Vital Signs Temperature 98.7 F 01/06/21 03:59 Pulse Rate 150 H 01/06/21 03:59 Respiratory Rate 25 H 01/06/21 03:59 Blood Pressure 138/103 H 01/06/21 03:59 Pulse Oximetry 96 01/06/21 03:59 Procedures Cardioversion Consent Signed: Yes Indication: Rapid atrial fibrillation Stability: Stable Number of attempts (shocks): 1 Joules used: 150 Cardiac rhythm post-cardioversion: Normal sinus Procedural Sedation Consent signed: Yes Time out performed: Yes Indication: cardioversion ASA Class: III Mallampati Airway Classification: Class IV Preparation: cardiac cath technician applied, pulse oximeter, capnometry used, supplemental O2 applied, suction/airway equipment at bedside and IV secured IV Propofol dose (mg): 70 Intraservice time/total sedation time (min): 10 ED Sedation Level: Moderate (Concious) Patient Tolerated Procedure: Well Complications: none Course Course Course Narrative: Patient presents with rapid atrial fibrillation that started just prior to arrival. She has a known history and is fully anticoagulated. Her largest symptom is feeling a bit anxious and fatigued. On occasion when her heart rate gets into the 150s and higher she does demonstrate widespread ST depressions as seen on the monitor. Orders Ordered: ED Orders 01/06/21 EKG-12 Lead Stat 01/06/21 04:00 EKG-12 Lead Stat 01/06/21 04:12 Basic Metabolic Panel Stat Complete Blood Count AUTO DIFF Stat Magnesium Stat NT-proBNP (BNP-Adult 18+) Stat TSH w/ Reflex to FT4 Stat Troponin & CK Cardiac Panel Stat Discontinued Medications Sodium Chloride (Normal Saline 0.9%) 1,000 mls @ 125 mls/hr IV CONT MIREILLE Last Infusion: 01/06/21 05:07 Dose: 0 mls/hr Documented by: Admin: 01/06/21 04:22 Dose: 125 mls/hr Documented by: RAMANDEEP Ondansetron HCl (Ondansetron 4 Mg/2 Ml Inj) 4 mg IV NOW ONE Stop: 01/06/21 04:18 Last Admin: 01/06/21 04:21 Dose: 4 mg Documented by: RAMANDEEP Propofol (Propofol 200 Mg/20 Ml Vial) 100 mg IV NOW ONE Stop: 01/06/21 04:02 Last Admin: 01/06/21 04:50 Dose: 70 mg Documented by: RAMANDEEP Reevaluation(s) Reevaluation #1: Patient doing quite well in the aftermath of cardioversion and no longer feeling anxious or fatigued Vital Signs Vital signs: Vital Signs - 8 hr 01/06/21 03:59 01/06/21 04:46 01/06/21 04:50 Temperature 98.7 F Pulse Rate 150 H 70 71 Respiratory Rate 25 H 18 22 Blood Pressure 138/103 H 118/71 123/73 Pulse Oximetry 96 94 95 01/06/21 04:55 01/06/21 05:00 Temperature Pulse Rate 70 69 Respiratory Rate 20 17 Blood Pressure 127/76 122/76 Pulse Oximetry 95 96 MDM - Arrhythmia/Palpitations Lab Data Result diagrams: 01/06/21 04:12 01/06/21 04:12 Labs: Lab Results 01/06/21 01/06/21 01/06/21 Range/Units 04:12 04:12 04:12 WBC 8.5 (4.5-11.0) X10^3/uL RBC 4.72 (4.0-5.2) X10^6/uL Hgb 13.9 (12.0-16.0) g/dL Hct 41.9 (36-46) % MCV 88.8 (80-100) fL MCH 29.4 (26-34) PG MCHC 33.1 (30-36) % RDW 13.1 (11.6-14.8) % Plt Count 272 (150-400) X10^3/uL Neut % (Auto) 47.7 L (50-75) % Lymph % (Auto) 43.2 H (25-40) % Summers % (Auto) 6.0 (3-14) % Eos % (Auto) 2.6 (2-4) % Baso % (Auto) 0.5 (0-2) % Neut # (Auto) 4100 (7324-2647) /uL Lymph # (Auto) 3700 (6532-6197) /uL Summers # (Auto) 500 (0-900) /uL Eos # (Auto) 200 (0-450) /uL Baso # (Auto) 0 (0-100) /uL Sodium 138 (137-145) mmol/L Potassium 3.5 (3.4-5.1) mmol/L Chloride 102 (98-107) mmol/L Carbon Dioxide 26 (22-32) mmol/L BUN 16 (7-17) mg/dL Creatinine 0.76 (0.52-1.04) mg/dL Estimated GFR > 60.0 (>60) mL/min BUN/Creatinine Ratio 21.1 (6-22) Glucose 112 H (80-110) mg/dL Calcium 9.5 (8.4-10.2) mg/dL Magnesium 1.9 (1.6-2.3) mg/dL Total Creatine Kinase 51 (30-135) U/L CK-MB (CK-2) TNP CK-MB (CK-2) Rel Index TNP Troponin I < 0.012 (0.01-0.034) ng/mL NT-Pro-B Natriuret Pep 274 H (<125) pg/mL TSH 3.77 (0.47-4.68) uIU/mL Discharge Plan Departure Patient Disposition: Home Clinical Impression: Atrial fibrillation, currently in sinus rhythm Instructions: DI for Atrial Fibrillation Activity Restrictions/Additional Instructions: *You have been diagnosed with [rapid atrial fibrillation, status post procedural sedation and electrical cardioversion] *What to do: *Take medications as directed *Follow up with your primary 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 Let them know you were seen in the Emergency Department and that we ask that you be seen in follow up *Return to ER if you should have any new, worsening or concerning symptoms, such as [chest pain, shortness of breath, fever, shaking chills or other bothersome symptoms] Prescriptions: No Action Eliquis 5 mg tablet 5 mg PO BID Qty: 180 RF: 1 metoprolol tartrate 25 mg tablet 12.5 mg PO BID Qty: 60 RF: 0 levothyroxine 25 mcg capsule 25 mcg PO DAILY RF: 0 triamterene-hydrochlorothiazid 37.5-25 mg tablet 1 tab PO DAILY RF: 0 Referrals: Jocelyn Monroy DO [Primary Care Provider] -
[2021-01-06 05:14] LABS: TSH w/ Reflex to FT4 3.77 uIU/mL (0.47-4.68)
[2021-01-08 14:49] LABS: Free T4, Direct Thyroxine 1.47 ng/dL (0.78-2.19)
== END 2021-01-06 05:09 | disposition home or self-care (01) ==
PROVIDERS: Emergency Provider Emergency Medicine; PCP Family Medicine
DX: I48.91 Unspecified atrial fibrillation (principal); E03.9 Hypothyroidism, unspecified
CPT/HCPCS: 36415; 80048; 82550; 83735; 83880; 84439; 84443; 84481; 84484; 85025; 92960; 93005; 93010; 96361; 96374; 99152; 99285; J2405; J2704

== ENCOUNTER → 2021-01-17 15:24 | Outpatient (CLI) | payer OTHER, SELFPAY ==
[2021-01-17] MEDS: COVID-19 VACC #2, MRNA(MOD) 100 MCG/0.5 ML VIAL IM (15:50)
== END ==
PROVIDERS: PCP Family Medicine; Visit Provider Internal Medicine
DX: Z23 Encounter for immunization (principal)
CPT/HCPCS: 0012A; 91301

== ENCOUNTER 2021-01-22 08:16 | Emergency (ER) | payer OTHER, SELFPAY ==
[2021-01-22] VITALS (22 sets, daily range): BP systolic 93–141; BP diastolic 54–96; PULSE 64–138; RESP 12–23; TEMP 36.7; O2SAT 93–99; BMI 54.8
--- NOTE | 2021-01-22 08:24 | ED.GENADULT ---
HPI - General Adult General Chief complaint: Arrhythmia/Palpitations Stated complaint: hx of a-fib/episode started today Time Seen by Provider: 01/22/21 08:20 Source: patient Mode of arrival: Wheelchair Limitations: no limitations History of Present Illness HPI narrative: Patient is a 65-year-old female with a history of atrial fibrillation. Is fully anticoagulated and is also on metoprolol. Was seen here recently with an episode of atrial fibrillation and was successfully cardioverted. Patient states that since that time she has continued to take her medications. She woke up this morning feeling like she was back in atrial fibrillation. No chest pain but just feels ?weird ? Related Data Previous Rx's Medication Instructions Recorded apixaban 5 mg tablet 5 mg PO BID #180 tab 08/19/20 levothyroxine 25 mcg tablet See Rx Instructions .ROUTE 01/07/21 .COMPLEX #90 tablet metoprolol tartrate 25 mg tablet See Rx Instructions .ROUTE 01/07/21 .COMPLEX #60 tab triamterene 37.5 See Rx Instructions .ROUTE 01/07/21 mg-hydrochlorothiazide 25 mg tablet .COMPLEX #90 tablet diazepam 5 mg tablet 5 mg PO BEDTIME PRN #20 tab 01/17/21 Allergies Allergy/AdvReac Type Severity Reaction Status Date / Time Penicillins Allergy Unk Verified 01/22/21 08:34 Review of Systems Constitutional Constitutional: Denies fatigue and Denies fever(s) Eyes Eyes: Denies change in vision ENT Ears, Nose, Mouth, and Throat: Denies sore throat Cardiovascular Cardiovascular: Denies chest pain, Reports rapid heart rate, Reports irregular heart rhythm and Denies dyspnea Respiratory Respiratory: Denies dyspnea Gastrointestinal Gastrointestinal: Denies abdominal pain, Denies nausea and Denies vomiting Genitourinary Genitourinary: Denies dysuria Genitourinary: Denies dysuria Musculoskeletal Musculoskeletal: Denies arthralgias and Denies myalgias Integumentary/Breasts Skin/Breast: Denies rash Neurologic Neurologic: Denies behavioral changes Psychiatric Psychiatric: Denies behavioral changes Endocrine Endocrine: Denies fatigue Hematologic/Lymphatic On Anticoagulants: Yes Allergic/Immunologic Allergic/Immunologic: Denies urticaria Patient History Medical History Anxiety (~1998) Atrial fibrillation, new onset Chicken pox Endometrial cancer, grade I (~02/2017) H/O Hendricks's palsy (~1988) History of endometrial cancer Hx of ectopic Hypertension (~2014) Hypothyroid (~2014) Measles Meningitis Mumps Pharyngeal spasm Plantar warts (~1998) Pulmonary nodule less than 6 cm determined by computed tomography of lung Rubella Tracheitis (~2015) Traumatic brain injury (~1998) Surgical History Anesthesia H/O section H/O: hysterectomy (~2016) History of hernia repair (~1989) History of (~1987) Family History Father CAD (coronary artery disease) Hyperlipidemia Hypertension Colon cancer History of heart disease Myocardial infarct Mother Diabetes mellitus History of heart disease Hypertension Stroke Myocardial infarct Sister Hypertension Ventricular fibrillation History of heart disease Sister Hypertension COPD (chronic obstructive pulmonary disease) Mental health problem Grandmother Dementia Social History marital status: number of children: 3 household members: spouse lives independently: Yes housing: house education level: college occupational status: employed current occupational exposures/hazards: No 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 Lived in [place], raised her kids [employer] exchange program Smoking Status: Never smoker alcohol intake frequency: 0-2 drinks per day Substance Use Type: does not use Exam Initial Vital Signs Initial Vital Signs: Vital Signs Temperature 98.1 F 01/22/21 08:34 Pulse Rate 136 H 01/22/21 08:34 Respiratory Rate 22 01/22/21 08:34 Blood Pressure 138/83 01/22/21 08:34 Pulse Oximetry 95 01/22/21 08:34 Const General: cooperative and comfortable Limitations: mental status not altered [facility] Head: normocephalic and atraumatic Eyes Visual Bucio: normal visual bucio by confrontation Resp Effort & Inspection: normal respiratory effort Auscultation: clear to auscultation bilaterally Cardio Rate: tachycardic Rhythm: abnormal rhythm Pulses: radial pulses present GI Inspection: non-distended Skin Lesions: no lesions Rashes: no rashes Neuro General: patient alert, patient awake and patient oriented x3 Extrem General: normal to inspection and capillary refill normal Psych Appearance: grossly normal and well kempt Procedures Cardioversion Consent Signed: Yes Indication: AFib with RVR Stability: Stable Number of attempts (shocks): 1 Joules used: 150 Cardiac rhythm post-cardioversion: Sinus rhythm Procedural Sedation Consent signed: Yes Time out performed: Yes Indication: cardioversion Presedation Evaluation: AFib with RVR ASA Class: II Mallampati Airway Classification: Class II Preparation: shelter monitor applied, pulse oximeter, capnometry used, supplemental O2 applied and suction/airway equipment at bedside Fentanyl: IV Fentanyl dose (mcg): 12 IV Propofol dose (mg): 70 Intraservice time/total sedation time (min): 10 ED Sedation Level: Moderate (Concious) Patient Tolerated Procedure: Well Complications: none Course Orders Ordered: ED Orders 01/22/21 08:21 EKG-12 Lead Stat 01/22/21 08:25 EKG-12 Lead Stat RT Consult Eval and Treat Now 01/22/21 08:50 COVID19 -Nasal swab/Pre-Proc Stat Sodium Chloride (Normal Saline 0.9%) 1,000 mls @ 125 mls/hr IV CONT MIREILLE Last Infusion: 01/22/21 10:05 Dose: 0 mls/hr Documented by: Admin: 01/22/21 09:19 Dose: 125 mls/hr Documented by: MANUEL Discontinued Medications Fentanyl (Fentanyl 100 Mcg/2 Ml Inj) 12.5 mcg IV NOW ONE Stop: 01/22/21 08:25 Last Admin: 01/22/21 09:31 Dose: 12.5 mcg Documented by: MANUEL Ondansetron HCl (Ondansetron 4 Mg/2 Ml Inj) 4 mg IV NOW ONE Stop: 01/22/21 08:38 Last Admin: 01/22/21 09:20 Dose: 4 mg Documented by: MANUEL Propofol (Propofol 200 Mg/20 Ml Vial) 100 mg IV NOW ONE Stop: 01/22/21 08:25 Last Admin: 01/22/21 09:32 Dose: 70 mg Documented by: MANUEL Vital Signs Vital signs: Vital Signs - 8 hr 01/22/21 08:34 01/22/21 08:49 01/22/21 09:00 Temperature 98.1 F Pulse Rate 136 H 136 H 138 H Respiratory Rate 22 16 12 Blood Pressure 138/83 115/76 Pulse Oximetry 95 97 98 01/22/21 09:05 01/22/21 09:10 01/22/21 09:15 Temperature Pulse Rate 138 H 138 H 138 H Respiratory Rate 13 12 16 Blood Pressure Pulse Oximetry 98 99 97 01/22/21 09:20 01/22/21 09:25 01/22/21 09:26 Temperature Pulse Rate 138 H 138 H 137 H Respiratory Rate 22 18 20 Blood Pressure 121/96 H 124/79 Pulse Oximetry 97 98 98 01/22/21 09:30 01/22/21 09:35 01/22/21 09:36 Temperature Pulse Rate 138 H 135 H 78 Respiratory Rate 22 23 19 Blood Pressure 141/85 H 93/54 L Pulse Oximetry 99 93 99 01/22/21 09:40 01/22/21 09:45 01/22/21 09:50 Temperature Pulse Rate 72 70 66 Respiratory Rate 14 19 15 Blood Pressure 102/59 L 104/61 103/62 Pulse Oximetry 97 97 97 01/22/21 09:55 01/22/21 10:00 01/22/21 10:05 Temperature Pulse Rate 67 68 66 Respiratory Rate 17 20 19 Blood Pressure 106/62 109/66 Pulse Oximetry 99 98 99 01/22/21 10:10 01/22/21 10:15 01/22/21 10:20 Temperature Pulse Rate 64 65 64 Respiratory Rate 18 18 17 Blood Pressure 111/68 Pulse Oximetry 99 97 98 01/22/21 10:25 Temperature Pulse Rate 70 Respiratory Rate 23 Blood Pressure Pulse Oximetry 97 Medical Decision Making Lab Data Labs: Lab Results 01/22/21 Range/Units 08:50 SARS-CoV-2 (PCR) Negative (Negative) Point of Care Testing Test Results Not applicable Point of care testing: Point of Care Testing Test Results Not applicable ECG Data Attestation: I personally reviewed and interpreted this ECG as follows: Prior ECG tracings: not available for review Interpretation: Atrial flutter Ventricular rate 138 Left axis deviation Nonspecific ST T wave changes Post cardioversion Sinus rhythm Ventricular rate is 74 Occasional PVCs Normal QRS Normal QTC No ST T wave changes MDM Narrative Medical decision making narrative: Successful cardioversion with successful sedation. Patient understood that the cardioversion his treatment for her current episode and she could potentially have another episode of AFib. She was given return precautions. We will increase her metoprolol from 12.5 mg 2 times a day to 25 mg 2 times a day. She has an appointment scheduled with her pipe tester already. She feels comfortable going home. Discharge Plan Departure Patient Disposition: Home Clinical Impression: Atrial fibrillation, currently in sinus rhythm Instructions: DI for Atrial Fibrillation Activity Restrictions/Additional Instructions: Recommend that you continue all of your medications as directed except that we are going to increase your metoprolol from 12.5 mg (1/2 tablet) to 25 mg 2 times a day. Keep all of your scheduled medical appointments. Return to the emergency department for any new or worsening symptoms Prescriptions: No Action Eliquis 5 mg tablet 5 mg PO BID Qty: 180 RF: 1 triamterene-hydrochlorothiazid 37.5-25 mg tablet See Rx Instructions .ROUTE .COMPLEX Qty: 90 RF: 0 levothyroxine 25 mcg tablet See Rx Instructions .ROUTE .COMPLEX Qty: 90 RF: 0 metoprolol tartrate 25 mg tablet See Rx Instructions .ROUTE .COMPLEX Qty: 60 RF: 0 diazepam 5 mg tablet 5 mg PO BEDTIME PRN (Reason: sleep) Qty: 20 RF: 0 Referrals: Jocelyn Monroy DO [Primary Care Provider] -
[2021-01-22 09:10] LABS: COVID19 -Nasal RAPID Negative (Negative)
[2021-01-22] MEDS: SODIUM CHLORIDE 0.9% 1,000 ML 125 ML IV (09:19)
[2021-01-22] MEDS: ONDANSETRON 4 MG/2 ML INJ IV (09:20)
[2021-01-22] MEDS: fentaNYL 100 MCG/2 ML INJ 12.5 MCG IV (09:31)
[2021-01-22] MEDS: propofoL 200 MG/20 ML VIAL 100 MG IV (09:32)
--- NOTE | 2021-01-22 10:33 | RT ---
Addendum entered by Deanna Mathews, RT 01/22/21 10:35: Released by Rn, pt awake and alert Original Note: At bedside for Cardioversion. Pt on etco2 and 2 lpm nc with no distress noted. Roll placed under shoulders and bag mask unit with suction functional at [facility]. Pt black well.
== END 2021-01-22 10:45 | disposition home or self-care (01) ==
PROVIDERS: Emergency Provider Emergency Medicine; PCP Family Medicine
DX: I48.91 Unspecified atrial fibrillation (principal); Z79.01 Long term (current) use of anticoagulants; Z86.79 Personal history of other diseases of the circulatory system
CPT/HCPCS: 36415; 87635; 92960; 93005; 96361; 96374; 99152; 99285; 99291; C9803; J2405; J2704; J3010

== ENCOUNTER → 2021-03-29 11:08 | Outpatient (CLI) | payer OTHER, SELFPAY ==
[2021-03-29 12:41] LABS: COVID19 -Nasal RAPID Negative (Negative)
== END ==
PROVIDERS: PCP Family Medicine; Referring Provider Physician Assistant; Visit Provider Physician Assistant
DX: Z01.812 Encounter for preprocedural laboratory examination (principal); Z20.822 Contact with and (suspected) exposure to COVID-19
CPT/HCPCS: 87635

== ENCOUNTER → 2021-03-31 10:40 | Outpatient (CLI) | payer OTHER, SELFPAY ==
--- NOTE | 2021-04-01 14:19 | DI.NM.S_ITS ---
DATE OF SERVICE: 03/31/2021 PROCEDURE PERFORMED: Pharmacologic vasodilator stress and rest myocardial perfusion imaging with gating to assess ejection fraction and regional wall motion. ORDERING PROVIDER: Dr. Aki Roca. INDICATIONS: The patient is a 65-year-old female with paroxysmal atrial fibrillation and dyspnea. CARDIAC STRESS: Per protocol, 0.4 mg of regadenoson was infused with an appropriate hemodynamic response. She had no chest discomfort, but did develop some flushing. Her resting ECG shows sinus rhythm with fairly normal ST segments and occasional PVCs, at times in a quadrigeminal pattern. With stress, there are no significant ST-segment shifts. She continues to have occasional PVCs, at times in a bigeminal pattern, but no other complex ectopy. Per protocol, 25.0 millicuries of technetium-99m Myoview was injected. She was imaged 15 minutes later using a gated SPECT acquisition protocol. The following day she returned and while at rest was injected with 24.0 millicuries of technetium-99m Myoview and was imaged 30 minutes later, again using a quantitated gated SPECT protocol. FINDINGS: 1. Raw data: There are fairly poor myocardial tracer images because of the severe obesity and prominent breast shadows that clearly produce fairly marked attenuation artifact. The lung/heart ratio is at the upper limits of normal at 0.43, but is somewhat nonspecific because of the marginal image quality. The TID ratio was normal at 0.95. 2. Quantitated gated SPECT: Post-stress ejection fraction is estimated at around 62% without any obvious focal wall motion abnormality although the gated images are of particularly poor image quality. The resting ejection fraction is estimated at 63% with a slightly increased end-diastolic volume of 134 mL. 3. Post-stress supine images show a mild perfusion defect at the base of the inferior wall in a pattern consistent with diaphragmatic attenuation, supported by its resolution on the prone images. In addition, there is a distal anterior and anterolateral defect extending into the inferolateral apex that most likely reflects breast attenuation artifact as this defect also resolves on the prone images, except a very subtle defect remains present in the distal inferoapex. The resting images show a similar perfusion pattern without any clear improvement in the proximal inferior wall. The anterior defect does improve on the resting images, but again is nonspecific given the normalization on the prone images. The distal inferolateral wall defect also appears to resolve. IMPRESSION: 1. Low risk, probable normal myocardial perfusion study but with significantly reduced sensitivity and specificity because of poor image quality. 2. There is a mild fixed proximal inferior defect that resolves on prone imaging, consistent with diaphragmatic attenuation. There is a small to moderate reversible defect in the distal anterior wall and apex that resolves on prone imaging. There is a very small focal defect in the distal inferolateral wall that persists on prone imaging, and improves on the rest images and could reflect a small volume of ischemia, but if present, it is low risk given the small volume of myocardium involved and most likely reflects differential positioning because of significant attenuation artifact. 3. Probable normal left ventricular systolic function without any obvious focal wall motion abnormality although image quality is quite poor. The lung/heart ratio is borderline elevated but is nonspecific because of the poor image quality. 4. No angina or ECG evidence of ischemia with pharmacologic vasodilator stress. She had occasional PVCs, briefly in a bigeminal pattern, but no other arrhythmias, and specifically no atrial fibrillation. Kiana Altamirano - GLORIA/marcus/caryl doc#: [id number]/job#: [id number] dd: 04/01/2021 12:40:00 dt: 04/01/2021 14:04:00 DICTATING MD/COPIES TO: Jus Chahal MD; Emmie Roca MD COPIES MNE: QUYEN;
== END ==
PROVIDERS: PCP Family Medicine; Referring Provider Internal Medicine Cardiovascular Disease; Visit Provider Internal Medicine Cardiovascular Disease
DX: I48.19 Other persistent atrial fibrillation (principal); R06.00 Dyspnea, unspecified
CPT/HCPCS: 78452; 93017; A9502; J2785

== ENCOUNTER 2021-04-30 06:45 | Emergency (ER) | payer OTHER, SELFPAY ==
[2021-04-30] VITALS (24 sets, daily range): BP systolic 89–190; BP diastolic 50–110; PULSE 60–138; RESP 3–21; TEMP 36.4; O2SAT 93–97; BMI 53.6
--- NOTE | 2021-04-30 06:53 | DI.RAD.S_ITS ---
PROCEDURE: XR CHEST 1V INDICATIONS: SOB TECHNIQUE: One view of the chest was acquired. COMPARISON: [facility], CR, XR CHEST 1V, 07/14/2020, 8:20. FINDINGS: Surgical changes and devices: None. Lungs and pleura: Lungs are clear. No pleural effusions or pneumothorax. Mediastinum: Mediastinal contours appear unchanged. Heart size is enlarged. Bones and chest wall: No suspicious bony lesions. Overlying soft tissues appear unremarkable. IMPRESSION: No acute cardiopulmonary abnormality identified. Cardiomegaly. This report is concordant with the overnight preliminary interpretation. Dictated by: Molina Baker M.D. on 04/30/2021 at 8:11 Approved by: Molina Baker M.D. on 04/30/2021 at 8:12
[2021-04-30 07:15] LABS: Add Manual Diff / Slide Review NO; Basophils Absolute Auto 0 /uL (0-100); Basophils Percent Auto 0.5 % (0-2); Eosinophils Absolute Auto 200 /uL (0-450); Eosinophils Percent Auto 2.6 % (2-4); Hematocrit 43.3 % (36-46); Hemoglobin 14.3 g/dL (12.0-16.0); Lymphocytes Absolute Auto 3500 /uL (1100-4500); Lymphocytes Percent Auto 37.9 % (25-40); Mean Corpuscular HGB Conc 33.1 % (30-36); Mean Corpuscular Hemoglobin 29.5 PG (26-34); Mean Corpuscular Volume 89.1 fL (80-100); Monocytes Absolute Auto 600 /uL (0-900); Monocytes Percent Auto 6.6 % (3-14); Neutrophils Absolute Auto 4900 /uL (1500-7000); Neutrophils Percent Auto 52.4 % (50-75); Platelet Count 302 X10^3/uL (150-400); Red Blood Cell Count 4.86 X10^6/uL (4.0-5.2); Red Cell Distribution Width 13.5 % (11.6-14.8); White Blood Cell Count 9.3 X10^3/uL (4.5-11.0)
[2021-04-30 07:20] LABS: Alanine Aminotransferase 27 IU/L (<35); Albumin 4.2 g/dL (3.5-5.0); Albumin Globulin Ratio 1.4 (1.0-2.8); Alkaline Phosphatase 52 U/L (38-126); Aspartate Aminotransferase 28 IU/L (14-36); BUN Creatinine Ratio 19.4 (6-22); Bilirubin Total 1.3 mg/dL (0.2-1.3); Blood Urea Nitrogen 14 mg/dL (7-17); Calcium 9.5 mg/dL (8.4-10.2); Carbon Dioxide 30 mmol/L (22-32); Chloride 101 mmol/L (98-107); Creatine Kinase 44 U/L (30-135); Estimated Glomerular Filt Rate > 60.0 mL/min (>60); Glucose 111 mg/dL (80-110); HEMOLYSIS < 15 (0-50); Magnesium 1.9 mg/dL (1.6-2.3); Potassium 3.7 mmol/L (3.4-5.1); Sodium 140 mmol/L (137-145); Total Protein 7.2 g/dL (6.3-8.2)
--- NOTE | 2021-04-30 07:22 | ED.ARRPALP ---
HPI - Arrhythmia/Palpitations General Chief Complaint: Arrhythmia/Palpitations Stated Complaint: states in A Fib Time Seen by Provider: 04/30/21 06:52 Source: patient Mode of arrival: Ambulatory Limitations: no limitations History of Present Illness HPI narrative: Patient is a 66-year-old female. Has a history of atrial fibrillation. Is on apixaban. States she has taken it 2 times a day without fail for the past month. Has had multiple episodes of AFib in the past that have needed cardioversion. States that she woke up this morning feeling like her heart is beating fast. No chest pain. No lower extremity swelling. No abdominal pain. No nausea vomiting. She has not taken her medicines this morning but did take them last evening. Symptoms have been consistent since she woke up. Related Data Previous Rx's Medication Instructions Recorded apixaban 5 mg tablet (Eliquis) 5 mg PO BID #180 tab 08/19/20 diazepam 5 mg tablet 5 mg PO BEDTIME PRN #20 tab 01/17/21 Naltrexone HCL 4.5 mg PO .hs #30 ea 02/21/21 levothyroxine 25 mcg tablet See Rx Instructions .ROUTE 04/03/21 .COMPLEX #90 tablet triamterene 37.5 See Rx Instructions .ROUTE 04/03/21 mg-hydrochlorothiazide 25 mg tablet .COMPLEX #90 tablet potassium chloride 10 mEq 20 meq PO DAILY #90 tab 04/11/21 tablet,extended release metoprolol tartrate 25 mg tablet 25 mg PO BID #180 tab 04/20/21 Allergies Allergy/AdvReac Type Severity Reaction Status Date / Time Penicillins Allergy Unk Verified 04/11/21 08:42 Review of Systems Constitutional Constitutional: Reports system reviewed and no additional complaints, except as documented Cardiovascular Cardiovascular: Denies chest pain, Reports rapid heart rate and Reports irregular heart rhythm Respiratory Respiratory: Reports system reviewed and no additional complaints, except as documented Gastrointestinal Gastrointestinal: Reports system reviewed and no additional complaints, except as documented Genitourinary Genitourinary: Reports system reviewed and no additional complaints, except as documented Musculoskeletal Musculoskeletal: Reports system reviewed and no additional complaints, except as documented Integumentary/Breasts Skin/Breast: Reports system reviewed and no additional complaints, except as documented Neurologic Neurologic: Reports system reviewed and no additional complaints, except as documented Hematologic/Lymphatic On Anticoagulants: Yes Allergic/Immunologic Allergic/Immunologic: Reports system reviewed and no additional complaints, except as documented Patient History Medical History Anxiety (~1998) Atrial fibrillation, new onset Chicken pox Endometrial cancer, grade I (~02/2017) H/O Hendricks's palsy (~1988) History of endometrial cancer Hx of ectopic Hypertension (~2014) Hypothyroid (~2014) Measles Meningitis Mumps Pharyngeal spasm Plantar warts (~1998) Pulmonary nodule less than 6 cm determined by computed tomography of lung Rubella Tracheitis (~2015) Traumatic brain injury (~1998) Surgical History Anesthesia H/O section H/O: hysterectomy (~2016) History of hernia repair (~1989) History of (~1987) Family History Father CAD (coronary artery disease) Hyperlipidemia Hypertension Colon cancer History of heart disease Myocardial infarct Mother Diabetes mellitus History of heart disease Hypertension Stroke Myocardial infarct Sister Hypertension Ventricular fibrillation History of heart disease Sister Hypertension COPD (chronic obstructive pulmonary disease) Mental health problem Grandmother Dementia Social History marital status: number of children: 3 household members: spouse lives independently: Yes housing: house education level: college occupational status: employed current occupational exposures/hazards: No 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 Lived in [place], raised her kids [place] [employer] Smoking Status: Never smoker alcohol intake frequency: other Substance Use Type: does not use Exam Initial Vital Signs Initial Vital Signs: Vital Signs Pulse Rate 132 H 04/30/21 06:49 Pulse Oximetry 93 04/30/21 06:49 Const General: cooperative HENMT Head: normal to inspection and normocephalic Eyes General: appearance normal, both eyes and all related structures Resp Effort & Inspection: normal respiratory effort Cardio Rate: tachycardic Rhythm: abnormal rhythm GI Inspection: normal to inspection Skin General: no rashes or lesions noted Neuro General: patient alert, patient awake, patient oriented x3 and moves all extremities Extrem General: No edema Psych Appearance: grossly normal and well kempt Procedures Cardioversion Time of Cardioversion: 08:02 Consent Signed: Yes Indication: AFib with RVR Stability: Stable Number of attempts (shocks): 2 Joules used: 150 Cardiac rhythm post-cardioversion: Sinus rhythm Procedural Sedation Time of procedure: 08: Consent signed: Yes Time out performed: Yes Indication: cardioversion Presedation Evaluation: See note ASA Class: II Mallampati Airway Classification: Class II Preparation: groundwater monitoring technician applied, pulse oximeter, capnometry used, supplemental O2 applied, suction/airway equipment at bedside and IV secured Fentanyl: IV Fentanyl dose (mcg): 12 IV Propofol dose (mg): 70 Intraservice time/total sedation time (min): 15 ED Sedation Level: Moderate (Concious) Patient Tolerated Procedure: Well Complications: hypoxia Interventions: Airway repositioned Scores GCS Darlin coma scale eye opening: Spontaneous [place] coma scale verbal response: Orientated Darlin coma scale motor response: Obey commands Darlin coma scale total score: 15 Course Orders Ordered: ED Orders 04/30/21 06:50 Complete Blood Count AUTO DIFF Stat Comprehensive Metabolic Panel Stat Magnesium Stat NT-proBNP (BNP-Adult 18+) Stat Troponin & CK Cardiac Panel Stat EKG-12 Lead Routine 04/30/21 06:53 XR chest 1V Stat 04/30/21 06:55 COVID19 -Nasal swab/Pre-Proc Stat 04/30/21 07:08 RT Consult Eval and Treat Now 04/30/21 08:01 EKG-12 Lead Stat Sodium Chloride (Normal Saline 0.9%) 1,000 mls @ 125 mls/hr IV CONT [place] Last Admin: 04/30/21 07:34 Dose: 125 mls/hr Documented by: KBRYERS Discontinued Medications Fentanyl (Fentanyl 100 Mcg/2 Ml Inj) 12.5 mcg IV NOW ONE Stop: 04/30/21 07:07 Last Admin: 04/30/21 07:53 Dose: 12.5 mcg Documented by: Propofol (Propofol 200 Mg/20 Ml Vial) 100 mg IV NOW ONE Stop: 04/30/21 07:07 Last Admin: 04/30/21 07:55 Dose: 100 mg Documented by: Vital Signs Vital signs: Vital Signs - 8 hr 04/30/21 06:49 04/30/21 06:50 04/30/21 06:55 Temperature 97.5 F L Pulse Rate 132 H 137 H 137 H Respiratory Rate 17 Blood Pressure 190/110 H 190/110 H Pulse Oximetry 93 94 96 04/30/21 07:00 04/30/21 07:05 04/30/21 07:10 Temperature Pulse Rate 136 H 135 H 137 H Respiratory Rate 18 17 17 Blood Pressure 120/84 Pulse Oximetry 94 96 94 04/30/21 07:15 04/30/21 07:20 04/30/21 07:25 Temperature Pulse Rate 135 H 137 H 137 H Respiratory Rate 17 17 16 Blood Pressure 119/81 Pulse Oximetry 95 94 95 04/30/21 07:30 04/30/21 07:35 04/30/21 07:40 Temperature Pulse Rate 137 H 138 H 138 H Respiratory Rate 21 3 L 15 Blood Pressure 113/73 115/65 117/80 Pulse Oximetry 95 93 93 04/30/21 07:45 04/30/21 07:50 04/30/21 07:51 Temperature Pulse Rate 138 H 138 H 138 H Respiratory Rate 18 19 16 Blood Pressure 109/72 113/75 Pulse Oximetry 94 94 95 04/30/21 07:55 04/30/21 08:00 04/30/21 08:05 Temperature Pulse Rate 138 H 71 68 Respiratory Rate 18 20 20 Blood Pressure 107/77 97/56 L 89/55 L Pulse Oximetry 96 96 97 04/30/21 08:09 04/30/21 08:10 04/30/21 08:15 Temperature Pulse Rate 64 62 Respiratory Rate 16 19 20 Blood Pressure 93/52 L 92/50 L Pulse Oximetry 97 96 04/30/21 08:20 04/30/21 08:25 Temperature Pulse Rate 60 60 Respiratory Rate 19 17 Blood Pressure 92/54 L 99/56 L Pulse Oximetry 96 97 MDM - Arrhythmia/Palpitations Medical Records Attestation: I reviewed the patient's medical records. Lab Data Attestation: I reviewed the patient's lab results. Result diagrams: 04/30/21 06:50 04/30/21 06:50 Labs: Lab Results 04/30/21 04/30/21 04/30/21 Range/Units 06:50 06:50 06:50 WBC 9.3 (4.5-11.0) X10^3/uL RBC 4.86 (4.0-5.2) X10^6/uL Hgb 14.3 (12.0-16.0) g/dL Hct 43.3 (36-46) % MCV 89.1 (80-100) fL MCH 29.5 (26-34) PG MCHC 33.1 (30-36) % RDW 13.5 (11.6-14.8) % Plt Count 302 (150-400) X10^3/uL Neut % (Auto) 52.4 (50-75) % Lymph % (Auto) 37.9 (25-40) % Summers % (Auto) 6.6 (3-14) % Eos % (Auto) 2.6 (2-4) % Baso % (Auto) 0.5 (0-2) % Neut # (Auto) 4900 (1192-6224) /uL Lymph # (Auto) 3500 (6367-4495) /uL Summers # (Auto) 600 (0-900) /uL Eos # (Auto) 200 (0-450) /uL Baso # (Auto) 0 (0-100) /uL Sodium 140 (137-145) mmol/L Potassium 3.7 (3.4-5.1) mmol/L Chloride 101 (98-107) mmol/L Carbon Dioxide 30 (22-32) mmol/L BUN 14 (7-17) mg/dL Creatinine 0.72 (0.52-1.04) mg/dL Estimated GFR > 60.0 (>60) mL/min BUN/Creatinine Ratio 19.4 (6-22) Glucose 111 H (80-110) mg/dL Calcium 9.5 (8.4-10.2) mg/dL Magnesium 1.9 (1.6-2.3) mg/dL Total Bilirubin 1.3 (0.2-1.3) mg/dL AST 28 (14-36) IU/L ALT 27 (<35) IU/L Alkaline Phosphatase 52 (38-126) U/L Total Creatine Kinase 44 (30-135) U/L CK-MB (CK-2) TNP CK-MB (CK-2) Rel Index TNP Troponin I < 0.012 (0.01-0.034) ng/mL NT-Pro-B Natriuret Pep 361 H (<125) pg/mL Total Protein 7.2 (6.3-8.2) g/dL Albumin 4.2 (3.5-5.0) g/dL Globulin 3.0 (1.7-4.1) g/dL Albumin/Globulin Ratio 1.4 (1.0-2.8) SARS-CoV-2 (PCR) (Negative) 04/30/21 Range/Units 06:55 WBC (4.5-11.0) X10^3/uL RBC (4.0-5.2) X10^6/uL Hgb (12.0-16.0) g/dL Hct (36-46) % MCV (80-100) fL MCH (26-34) PG MCHC (30-36) % RDW (11.6-14.8) % Plt Count (150-400) X10^3/uL Neut % (Auto) (50-75) % Lymph % (Auto) (25-40) % Summers % (Auto) (3-14) % Eos % (Auto) (2-4) % Baso % (Auto) (0-2) % Neut # (Auto) (5669-2022) /uL Lymph # (Auto) (1818-1125) /uL Summers # (Auto) (0-900) /uL Eos # (Auto) (0-450) /uL Baso # (Auto) (0-100) /uL Sodium (137-145) mmol/L Potassium (3.4-5.1) mmol/L Chloride (98-107) mmol/L Carbon Dioxide (22-32) mmol/L BUN (7-17) mg/dL Creatinine (0.52-1.04) mg/dL Estimated GFR (>60) mL/min BUN/Creatinine Ratio (6-22) Glucose (80-110) mg/dL Calcium (8.4-10.2) mg/dL Magnesium (1.6-2.3) mg/dL Total Bilirubin (0.2-1.3) mg/dL AST (14-36) IU/L ALT (<35) IU/L Alkaline Phosphatase (38-126) U/L Total Creatine Kinase (30-135) U/L CK-MB (CK-2) CK-MB (CK-2) Rel Index Troponin I (0.01-0.034) ng/mL NT-Pro-B Natriuret Pep (<125) pg/mL Total Protein (6.3-8.2) g/dL Albumin (3.5-5.0) g/dL Globulin (1.7-4.1) g/dL Albumin/Globulin Ratio (1.0-2.8) SARS-CoV-2 (PCR) Negative (Negative) Point of Care Testing Test Results Not applicable Imaging Data Chest x-ray: Radiologist's Impresson: Cardiomegaly there is no active disease in the chest ECG Data Attestation: I personally reviewed and interpreted this ECG as follows: Prior ECG tracings: available for review Interpretation: AFib Ventricular rate of 136 QRS 1 3 milliseconds Normal QTC Nonspecific ST T wave changes Post cardioversion EKG Sinus rhythm Ventricular rate is 72 Occasional PACs Normal QRS QTC [address] T wave changes MDM Narrative Medical decision making narrative: Patient with a known history of atrial fibrillation. Is on anticoagulation. She is stable. Patient was cardioverted as described above without incident. She was given return precautions follow-up instructions. She expressed understanding and agreement. Discharge Plan Departure Patient Disposition: Home Clinical Impression: Atrial fibrillation, currently in sinus rhythm Instructions: DI for Cardioversion Activity Restrictions/Additional Instructions: All of your medications as directed. Contact your primary doctor and also your com writer for follow-up. Return to the emergency department for new or worsening symptoms Prescriptions: No Action Eliquis 5 mg tablet 5 mg PO BID Qty: 180 RF: 1 Naltrexone HCL capsule 4.5 mg PO .hs Qty: 30 RF: 3 levothyroxine 25 mcg tablet See Rx Instructions .ROUTE .COMPLEX Qty: 90 RF: 0 triamterene-hydrochlorothiazid 37.5-25 mg tablet See Rx Instructions .ROUTE .COMPLEX Qty: 90 RF: 0 metoprolol tartrate 25 mg tablet 25 mg PO BID Qty: 180 RF: 0 potassium chloride 10 mEq tablet extended release 20 meq PO DAILY Qty: 90 RF: 0 diazepam 5 mg tablet 5 mg PO BEDTIME PRN (Reason: sleep) Qty: 20 RF: 0 Referrals: Jocelyn Monroy DO [Primary Care Provider] -
[2021-04-30 07:31] LABS: NT-proBNP (BNP-Adult 18+) 361 pg/mL (<125); Troponin I < 0.012 ng/mL (0.01-0.034)
[2021-04-30] MEDS: SODIUM CHLORIDE 0.9% 1,000 ML 125 ML IV (07:34)
[2021-04-30 07:45] LABS: COVID19 -Nasal RAPID Negative (Negative)
[2021-04-30] MEDS: fentaNYL 100 MCG/2 ML INJ 12.5 MCG IV (07:53)
[2021-04-30] MEDS: propofoL 200 MG/20 ML VIAL 100 MG IV (07:55)
== END 2021-04-30 08:40 | disposition home or self-care (01) ==
PROVIDERS: Emergency Medicine; Emergency Provider Emergency Medicine; PCP Family Medicine
DX: I48.91 Unspecified atrial fibrillation (principal); Z79.01 Long term (current) use of anticoagulants; Z20.822 Contact with and (suspected) exposure to COVID-19
CPT/HCPCS: 36415; 71045; 80053; 82550; 83735; 83880; 84484; 85025; 87635; 92960; 93005; 96360; 99152; 99285; 99291; C9803; J2704; J3010

== ENCOUNTER → 2021-06-03 11:00 | Outpatient (CLI) | payer OTHER, SELFPAY ==
--- NOTE | 2021-06-03 11:01 | DI.MG.S_ITS ---
BILATERAL DIGITAL SCREENING MAMMOGRAM 3D/2D WITH CAD: 06/03/2021 CLINICAL: Routine screening. Comparison is made to exams dated: 03/13/2011 mammogram, 03/22/2012 mammogram, and 11/16/2017 mammogram - outside facility. There are scattered fibroglandular elements in both breasts. Current study was also evaluated with a Computer Aided Detection (CAD) system. No significant masses, calcifications, or other findings are seen in either breast. There has been no significant interval change. IMPRESSION: NEGATIVE There is no mammographic evidence of malignancy. A 1 year screening mammogram is recommended. This exam was interpreted at Station ID: [id number]. NOTE: For mammograms, a report in lay terms will be sent to the patient. Approximately 15% of breast malignancies will not be visualized mammographically. In the management of a palpable breast mass, a negative mammogram must not discourage biopsy of a clinically suspicious lesion. Electronically Signed By: Sage Granados M.D. at/lia:06/03/2021 13:07:04 letter sent: Normal Exam ACR BI-RADS Category 1: Negative [id number]
== END ==
PROVIDERS: PCP Family Medicine; Referring Provider Family Medicine; Visit Provider Family Medicine
DX: Z12.39 Encounter for other screening for malignant neoplasm of breast (principal); Z00.00 Encounter for general adult medical examination without abnormal findings
CPT/HCPCS: 77063; 77067

== ENCOUNTER 2021-06-12 16:43 | Emergency (ER) | payer OTHER, SELFPAY ==
[2021-06-12] VITALS (10 sets, daily range): BP systolic 94–190; BP diastolic 54–106; PULSE 49–76; RESP 14–24; TEMP 36.6; O2SAT 92–97; BMI 52.0
[2021-06-12 17:38] LABS: Add Manual Diff / Slide Review NO; Basophils Absolute Auto 100 /uL (0-100); Basophils Percent Auto 0.7 % (0-2); Eosinophils Absolute Auto 100 /uL (0-450); Eosinophils Percent Auto 1.6 % (2-4); Hematocrit 40.2 % (36-46); Hemoglobin 13.4 g/dL (12.0-16.0); Lymphocytes Absolute Auto 2300 /uL (1100-4500); Lymphocytes Percent Auto 28.8 % (25-40); Mean Corpuscular HGB Conc 33.4 % (30-36); Mean Corpuscular Hemoglobin 29.7 PG (26-34); Mean Corpuscular Volume 88.9 fL (80-100); Monocytes Absolute Auto 500 /uL (0-900); Monocytes Percent Auto 6.4 % (3-14); Neutrophils Absolute Auto 5100 /uL (1500-7000); Neutrophils Percent Auto 62.5 % (50-75); Platelet Count 303 X10^3/uL (150-400); Red Blood Cell Count 4.52 X10^6/uL (4.0-5.2); Red Cell Distribution Width 13.2 % (11.6-14.8); White Blood Cell Count 8.1 X10^3/uL (4.5-11.0)
[2021-06-12 17:49] LABS: Alanine Aminotransferase 20 IU/L (<35); Albumin 4.2 g/dL (3.5-5.0); Albumin Globulin Ratio 1.6 (1.0-2.8); Alkaline Phosphatase 55 U/L (38-126); Aspartate Aminotransferase 22 IU/L (14-36); BUN Creatinine Ratio 27.8 (6-22); Bilirubin Total 0.8 mg/dL (0.2-1.3); Blood Urea Nitrogen 20 mg/dL (7-17); Calcium 9.6 mg/dL (8.4-10.2); Carbon Dioxide 32 mmol/L (22-32); Chloride 101 mmol/L (98-107); Estimated Glomerular Filt Rate > 60.0 mL/min (>60); Globulin 2.7 g/dL (1.7-4.1); Glucose 100 mg/dL (80-110); HEMOLYSIS < 15 (0-50); Magnesium 1.9 mg/dL (1.6-2.3); Potassium 3.9 mmol/L (3.4-5.1); Sodium 140 mmol/L (137-145); Total Protein 6.9 g/dL (6.3-8.2)
[2021-06-12 17:53] LABS: COVID19 -Nasal RAPID Negative (Negative)
[2021-06-12 18:00] LABS: NT-proBNP (BNP-Adult 18+) 846 pg/mL (<125); Troponin I < 0.012 ng/mL (0.01-0.034)
--- NOTE | 2021-06-12 18:09 | ED_ITS ---
HPI - Arrhythmia/Palpitations General Chief Complaint: Arrhythmia/Palpitations Stated Complaint: AFIB and Sweating Time Seen by Provider: 06/12/21 16:56 Source: patient Mode of arrival: Ambulatory History of Present Illness HPI narrative: 75-year-old female nonsmoker with known AFib and atrial flutter on Eliquis presents with chest pain and heaviness as well as diaphoresis and trouble breathing since this morning. She contacted her dispatch supervisor who sent her here for cardioversion. She has been cardioverted on multiple occasions and states she has missed none of her medications. She recently was started on flecainide and had an increase in the dosing of her metoprolol. She reports that she is on the list for cardioversion. She denies any fever or chills. She is otherwise well and free of complaint. Related Data Previous Rx's Medication Instructions Recorded apixaban 5 mg tablet (Eliquis) 5 mg PO BID #180 tab 08/19/20 Naltrexone HCL 4.5 mg PO .hs #30 ea 02/21/21 levothyroxine 25 mcg tablet See Rx Instructions .ROUTE 04/03/21 .COMPLEX #90 tablet triamterene 37.5 See Rx Instructions .ROUTE 04/03/21 mg-hydrochlorothiazide 25 mg tablet .COMPLEX #90 tablet metoprolol tartrate 25 mg tablet 25 mg PO BID #180 tab 04/20/21 potassium chloride 10 mEq See Rx Instructions .ROUTE 05/27/21 tablet,extended release .COMPLEX #180 tab diazepam 5 mg tablet 5 mg PO BEDTIME PRN #20 tab 06/04/21 Allergies Allergy/AdvReac Type Severity Reaction Status Date / Time Penicillins Allergy Unk Verified 04/11/21 08:42 Review of Systems Review of Systems Narrative: GENERAL: See HPI HEENT: Denies sinus pain, ear pain, sore throat, difficulty swallowing, dizziness. RESPIRATORY: See HPI CARDIOVASCULAR: See HPI GASTROINTESTINAL: Denies nausea, vomiting, abdominal pain, diarrhea, constipation, melena. : Denies dysuria, frequency, incontinence, hematuria, urinary retention. MUSCULOSKELETAL: denies weakness, joint pain, or bony pain SKIN: Denies rash, skin lesions, or other NEUROLOGIC: Denies weakness, headache, numbness, change in speech, confusion, seizures, incoordination. PSYCHIATRIC: No concerning psychosocial issues. 12 point review of systems is negative except for those stated above Patient History Medical History Anxiety (~1998) Atrial fibrillation, new onset Chicken pox Endometrial cancer, grade I (~02/2017) H/O Hendricks's palsy (~1988) History of endometrial cancer Hx of ectopic Hypertension (~2014) Hypothyroid (~2014) Measles Meningitis Mumps Pharyngeal spasm Plantar warts (~1998) Pulmonary nodule less than 6 cm determined by computed tomography of lung Rubella Tracheitis (~2015) Traumatic brain injury (~1998) Surgical History Anesthesia H/O section H/O: hysterectomy (~2016) History of hernia repair (~1989) History of (~1987) Family History Father CAD (coronary artery disease) Hyperlipidemia Hypertension Colon cancer History of heart disease Myocardial infarct Mother Diabetes mellitus History of heart disease Hypertension Stroke Myocardial infarct Sister Hypertension Ventricular fibrillation History of heart disease Sister Hypertension COPD (chronic obstructive pulmonary disease) Mental health problem Grandmother Dementia Social History marital status: number of children: 3 household members: spouse lives independently: Yes housing: house education level: college occupational status: employed current occupational exposures/hazards: No 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 Lived in [place], raised her kids [place] [employer] exchange program Smoking Status: Never smoker alcohol intake frequency: other Substance Use Type: does not use Exam Narrative Exam Narrative: GENERAL: [66 year old patient appears stated age. Well-developed patient, in mild distress. HEAD: Atraumatic. Normocephalic. EYES: Pupils equal round and reactive. Extraocular motions intact. No scleral icterus. No injection or drainage. ENT: Nose without bleeding, purulent drainage. Throat without erythema, tonsillar hypertrophy or exudate. Airway patent. NECK: Trachea midline. Non tender CARDIOVASCULAR: Irregular rate, irregular rhythm rhythm without murmurs, gallops, or rubs. RESPIRATORY: Clear to auscultation. Breath sounds equal bilaterally. No wheezes, rales, or rhonchi. GASTROINTESTINAL: Abdomen soft, non-tender, nondistended. EXTREMITIES: No edema or joint tenderness. BACK: Nontender without deformity or crepitance. No flank tenderness. NEURO: AOx3. SKIN: No rash or erythema of visible areas Initial Vital Signs Initial Vital Signs: Vital Signs Temperature 97.8 F 06/12/21 16:54 Pulse Rate 75 06/12/21 16:54 Respiratory Rate 24 06/12/21 16:54 Blood Pressure 190/106 H 06/12/21 16:54 Pulse Oximetry 97 06/12/21 16:54 Procedures Cardioversion Consent Signed: Yes Indication: symptomatic atrial flutter / fib Stability: Stable Number of attempts (shocks): 1 Joules used: 120 Cardiac rhythm post-cardioversion: NSR Procedural Sedation Consent signed: Yes Time out performed: Yes Indication: cardioversion ASA Class: III Mallampati Airway Classification: Class II Preparation: clinical research monitor applied, pulse oximeter, capnometry used, supplemental O2 applied, suction/airway equipment at bedside and IV secured IV Propofol dose (mg): 100 Course Orders Ordered: Discontinued Medications Propofol (Propofol 200 Mg/20 Ml Vial) 130 mg 1 mg/kg (130 mg) IV NOW ONE Stop: 06/12/21 18:25 Last Admin: 06/12/21 18:43 Dose: 130 mg Documented by: MALLORY Vital Signs Vital signs: Vital Signs - 8 hr 06/12/21 16:54 06/12/21 18:36 06/12/21 18:40 Temperature 97.8 F Pulse Rate 75 76 75 Respiratory Rate 24 23 19 Blood Pressure 190/106 H 94/54 L 107/70 Pulse Oximetry 97 96 97 06/12/21 18:45 06/12/21 18:51 06/12/21 18:55 Temperature Pulse Rate 49 L 53 L 51 L Respiratory Rate 24 16 17 Blood Pressure 124/61 110/57 L Pulse Oximetry 92 95 95 06/12/21 19:00 06/12/21 19:05 06/12/21 19:10 Temperature Pulse Rate 49 L 49 L 51 L Respiratory Rate 18 14 16 Blood Pressure 126/59 L 121/60 124/58 L Pulse Oximetry 96 95 96 06/12/21 19:15 Temperature Pulse Rate 50 L Respiratory Rate 18 Blood Pressure 117/60 Pulse Oximetry 96 MDM - Arrhythmia/Palpitations Lab Data Result diagrams: 06/12/21 17:27 06/12/21 17:27 Labs: Lab Results 06/12/21 06/12/21 06/12/21 Range/Units 17:27 17:27 17:27 WBC 8.1 (4.5-11.0) X10^3/uL RBC 4.52 (4.0-5.2) X10^6/uL Hgb 13.4 (12.0-16.0) g/dL Hct 40.2 (36-46) % MCV 88.9 (80-100) fL MCH 29.7 (26-34) PG MCHC 33.4 (30-36) % RDW 13.2 (11.6-14.8) % Plt Count 303 (150-400) X10^3/uL Neut % (Auto) 62.5 (50-75) % Lymph % (Auto) 28.8 (25-40) % [place] % (Auto) 6.4 (3-14) % Eos % (Auto) 1.6 L (2-4) % Baso % (Auto) 0.7 (0-2) % Neut # (Auto) 5100 (5596-7212) /uL Lymph # (Auto) 2300 (2896-6545) /uL [place] # (Auto) 500 (0-900) /uL Eos # (Auto) 100 (0-450) /uL Baso # (Auto) 100 (0-100) /uL Sodium 140 (137-145) mmol/L Potassium 3.9 (3.4-5.1) mmol/L Chloride 101 (98-107) mmol/L Carbon Dioxide 32 (22-32) mmol/L BUN 20 H (7-17) mg/dL Creatinine 0.72 (0.52-1.04) mg/dL Estimated GFR > 60.0 (>60) mL/min BUN/Creatinine Ratio 27.8 H (6-22) Glucose 100 (80-110) mg/dL Calcium 9.6 (8.4-10.2) mg/dL Magnesium 1.9 (1.6-2.3) mg/dL Total Bilirubin 0.8 (0.2-1.3) mg/dL AST 22 (14-36) IU/L ALT 20 (<35) IU/L Alkaline Phosphatase 55 (38-126) U/L Troponin I < 0.012 (0.01-0.034) ng/mL NT-Pro-B Natriuret Pep 846 H (<125) pg/mL Total Protein 6.9 (6.3-8.2) g/dL Albumin 4.2 (3.5-5.0) g/dL Globulin 2.7 (1.7-4.1) g/dL Albumin/Globulin Ratio 1.6 (1.0-2.8) SARS-CoV-2 (PCR) Negative (Negative) Discharge Plan Departure Patient Disposition: Home Clinical Impression: Atrial fibrillation, currently in sinus rhythm Instructions: DI for Atrial Flutter, DI for Atrial Fibrillation Activity Restrictions/Additional Instructions: *You have been diagnosed with [atrial fibrillation and flutter with electrocardioversion resulting in sinus rhythm *What to do: *Please continue to take your regular medications as directed. [ ] New medication prescriptions sent to your pharmacy: [ ] [ ] New medication written as a paper prescription [x ] No new medications given *Please follow up with your primary care provider in 2-3 days, call for an appointment. Let them know you were seen in the Emergency Department and that we ask that you be seen in follow up. We will electronically transmit a record of today's note if your PCP is in our system *If you do not have a primary care provider please contact the [facility] Resource line at [phone]. They will ask some questions about your medical history and help get you set up with a doctor in the community. *Return to Emergency Department if you should have any new, worsening or concerning symptoms, such as [fever greater than 101 F, shaking chills, worse rebecca pain, persistent vomiting or other bothersome symptoms] Prescriptions: No Action Eliquis 5 mg tablet 5 mg PO BID Qty: 180 RF: 1 Naltrexone HCL capsule 4.5 mg PO .hs Qty: 30 RF: 3 levothyroxine 25 mcg tablet See Rx Instructions .ROUTE .COMPLEX Qty: 90 RF: 0 triamterene-hydrochlorothiazid 37.5-25 mg tablet See Rx Instructions .ROUTE .COMPLEX Qty: 90 RF: 0 metoprolol tartrate 25 mg tablet 25 mg PO BID Qty: 180 RF: 0 potassium chloride 10 mEq tablet extended release See Rx Instructions .ROUTE .COMPLEX Qty: 180 RF: 0 diazepam 5 mg tablet 5 mg PO BEDTIME PRN (Reason: sleep) Qty: 20 RF: 0 Referrals: Jocelyn Monroy DO [Primary Care Provider] -
[2021-06-12] MEDS: propofoL 200 MG/20 ML VIAL 130 MG IV (18:43)
== END 2021-06-12 19:28 | disposition home or self-care (01) ==
PROVIDERS: Emergency Medicine; Emergency Provider Emergency Medicine; PCP Family Medicine
DX: I48.91 Unspecified atrial fibrillation (principal); I48.92 Unspecified atrial flutter; Z79.01 Long term (current) use of anticoagulants; Z20.822 Contact with and (suspected) exposure to COVID-19
CPT/HCPCS: 36415; 80053; 83735; 83880; 84484; 85025; 87635; 92960; 93005; 93010; 99285; C9803; J2704

== ENCOUNTER 2022-05-21 20:31 | Observation (INO) | payer OTHER, SELFPAY ==
[2022-05-21] VITALS (9 sets, daily range): BP systolic 131–176; BP diastolic 62–85; PULSE 61–73; RESP 15–18; TEMP 36.4; O2SAT 95–99; BMI 50.3
[2022-05-21 21:21] LABS: INR 1.3 (0.9-1.3); Prothrombin Time 15.2 SECONDS (10.1-12.7)
[2022-05-21 21:22] LABS: Add Manual Diff / Slide Review NO; Basophils Absolute Auto 100 /uL (0-100); Basophils Percent Auto 0.7 % (0-2); Eosinophils Absolute Auto 100 /uL (0-450); Eosinophils Percent Auto 0.6 % (2-4); Hematocrit 33.4 % (36-46); Hemoglobin 11.5 g/dL (12.0-16.0); Lymphocytes Absolute Auto 2500 /uL (1100-4500); Lymphocytes Percent Auto 29.9 % (25-40); Mean Corpuscular HGB Conc 34.4 % (30-36); Mean Corpuscular Hemoglobin 30.2 PG (26-34); Mean Corpuscular Volume 87.7 fL (80-100); Monocytes Absolute Auto 400 /uL (0-900); Monocytes Percent Auto 4.7 % (3-14); Neutrophils Absolute Auto 5400 /uL (1500-7000); Neutrophils Percent Auto 64.1 % (50-75); Platelet Count 319 X10^3/uL (150-400); Red Blood Cell Count 3.81 X10^6/uL (4.0-5.2); White Blood Cell Count 8.4 X10^3/uL (4.5-11.0)
[2022-05-21 21:24] LABS: PTT Partial Thromboplastin Tim 35 SECONDS (26-36)
[2022-05-21 21:26] LABS: Alanine Aminotransferase 15 IU/L (<35); Albumin Globulin Ratio 1.4 (1.0-2.8); Alkaline Phosphatase 45 U/L (38-126); Aspartate Aminotransferase 19 IU/L (14-36); BUN Creatinine Ratio 46.8 (6-22); Bilirubin Total 0.9 mg/dL (0.2-1.3); Blood Urea Nitrogen 44 mg/dL (7-17); Calcium 8.9 mg/dL (8.4-10.2); Carbon Dioxide 28 mmol/L (22-32); Chloride 99 mmol/L (98-107); Estimated Glomerular Filt Rate > 60 mL/min (>60); Globulin 2.9 g/dL (1.7-4.1); Glucose 122 mg/dL (80-110); HEMOLYSIS < 15 (0-50); Potassium 3.4 mmol/L (3.4-5.1); Sodium 136 mmol/L (137-145); Total Protein 6.9 g/dL (6.3-8.2)
--- NOTE | 2022-05-21 21:38 | ED_ITS ---
HPI - GI Bleed General Chief complaint: GI Bleed Stated complaint: weakness, black stool, fever Time Seen by Provider: 05/21/22 21:18 Source: patient Mode of arrival: Wheelchair History of Present Illness HPI Narrative: 67-year-old female nonsmoker with history of AFib on Eliquis presents with her in the chief complaint of the passage of dark and tarry stool over the past day or 2 and she is become increasingly dizzy and lightheaded and short of breath with exertion. She denies any fever or chills. She denies any nausea or vomiting. She denies abdominal pain nor dysuria, frequency or urgency. Related Data Home Medications Medication Instructions Recorded Confirmed flecainide 100 mg tablet 100 mg PO Q12H 07/09/21 01/15/22 metoprolol tartrate 50 mg tablet 50 mg PO BID 07/09/21 01/15/22 Previous Rx's Medication Instructions Recorded apixaban 5 mg tablet (Eliquis) 5 mg PO BID #180 tabs 08/19/20 miscellaneous medical supply #1 ea 06/19/21 Massage therapy #1 ea 09/24/21 nystatin 100,000 unit/gram topical 1 applic topical BID #30 grams 11/15/21 powder potassium chloride 10 mEq See Rx Instructions .Route 12/09/21 tablet,extended release .COMPLEX #180 tabs Naltrexone HCL 4.5 mg PO .hs #90 ea 12/12/21 diazepam 5 mg tablet 5 mg PO BID PRN anxiety #20 tabs 02/04/22 levothyroxine 25 mcg tablet 25 mcg PO DAILY #90 tabs 03/30/22 triamterene 37.5 1 tab PO DAILY #90 tabs 03/30/22 mg-hydrochlorothiazide 25 mg tablet Allergies Allergy/AdvReac Type Severity Reaction Status Date / Time Penicillins Allergy Unk Verified 05/21/22 20:40 Review of Systems Review of Systems Narrative: GENERAL: See HPI HEENT: Denies sinus pain, ear pain, sore throat, difficulty swallowing, dizziness. RESPIRATORY: See HPI CARDIOVASCULAR: Denies chest pain, palpitations, orthopnea, edema, GASTROINTESTINAL: See HPI : Denies dysuria, frequency, incontinence, hematuria, urinary retention. MUSCULOSKELETAL: denies weakness, joint pain, or bony pain SKIN: Denies rash, skin lesions, or other NEUROLOGIC: Denies weakness, headache, numbness, change in speech, confusion, seizures, incoordination. PSYCHIATRIC: No concerning psychosocial issues. 12 point review of systems is negative except for those stated above Patient History Medical History Acquired hypothyroidism Anxiety (~1998) Atrial fibrillation, new onset Atrial flutter Chicken pox Chronic anticoagulation Endometrial cancer, grade I (~02/2017) Essential hypertension Family history of colon cancer in father H/O Hendricks's palsy (~1988) History of endometrial cancer Hx of ectopic Iliotibial band syndrome, right leg Measles Meningitis Mixed hyperlipidemia Mumps Paroxysmal atrial fibrillation Pharyngeal spasm Plantar warts (~1998) Pulmonary nodule less than 6 cm determined by computed tomography of lung Rubella Severe obesity (BMI >= 40) Tracheitis (~2015) Traumatic brain injury (~1998) Surgical History Anesthesia H/O section H/O: hysterectomy (~2016) History of hernia repair (~1989) History of (~1987) Family History Father CAD (coronary artery disease) Hyperlipidemia Hypertension Colon cancer History of heart disease Myocardial infarct Mother Diabetes mellitus History of heart disease Hypertension Stroke Myocardial infarct Sister Hypertension Ventricular fibrillation History of heart disease Sister Hypertension COPD (chronic obstructive pulmonary disease) Mental health problem Grandmother Dementia Social History marital status: details: ([place]y), [employer]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 Lived in [place], raised her kids [place] [employer] exchange program Smoking Status: Never smoker alcohol intake frequency: other Substance Use Type: does not use Exam Narrative Exam Narrative: GENERAL: [67] year old patient appears stated age. Well-developed patient, in mild distress. HEAD: Atraumatic. Normocephalic. EYES: Pupils equal round and reactive. Extraocular motions intact. No scleral icterus. No injection or drainage. ENT: Nose without bleeding, purulent drainage. Throat without erythema, tonsillar hypertrophy or exudate. Airway patent. NECK: Trachea midline. Non tender CARDIOVASCULAR: Regular rate and rhythm without murmurs, gallops, or rubs. RESPIRATORY: Clear to auscultation. Breath sounds equal bilaterally. No wheezes, rales, or rhonchi. GASTROINTESTINAL: Abdomen soft, non-tender, nondistended. RECTAL: Dark stool on rectal exam, quickly heme positive. Performed with patient permission and female nursing mobile tester EXTREMITIES: No edema or joint tenderness. BACK: Nontender without deformity or crepitance. No flank tenderness. NEURO: AOx3. SKIN: No rash or erythema of visible areas Initial Vital Signs Initial Vital Signs: Vital Signs Temperature 97.6 F 05/21/22 20:40 Pulse Rate 73 05/21/22 20:40 Respiratory Rate 15 05/21/22 20:40 Blood Pressure 176/84 H 05/21/22 20:40 Pulse Oximetry 99 05/21/22 20:40 Oxygen Delivery Method 05/21/22 20:40 Course Orders Ordered: ED Orders 05/21/22 20:45 Complete Blood Count AUTO DIFF Stat Comprehensive Metabolic Panel Stat Partial Thromboplastin Time Stat Prothrombin Time INR Stat Type and Screen Stat 05/21/22 20:56 EKG-12 Lead Stat 05/21/22 22:13 HH [Hemoglobin and Hematocrit] Stat 05/21/22 23:27 COVID19 -Nasal RAPID/Pre-Proc Stat Acetaminophen (Acetaminophen 325 Mg Tablet) 650 mg PO Q6HR PRN PRN Reason: Fever/Mild Pain (1-3) Last Admin: 05/22/22 01:45 Dose: 650 mg Documented By: CN Sodium Chloride (Normal Saline 0.9%) 500 mls @ 60 mls/hr IV CONT MIREILLE Last Admin: 05/22/22 03:17 Dose: 60 mls/hr Documented By: CN Pantoprazole Sodium (Pantoprazole 40 Mg Vial) 40 mg IV BID MIREILLE Discontinued Medications Pantoprazole Sodium (Pantoprazole 40 Mg Vial) 40 mg IV NOW ONE Stop: 05/21/22 23:15 Last Admin: 05/21/22 23:22 Dose: 40 mg Documented By: AT Consultations Consultation #1: Hospitalist happy to accept patient Consultation #2: Dr. Cross notified, happy to play a role in consultation Vital Signs Vital signs: Vital Signs - 8 hr 05/21/22 20:40 05/21/22 21:13 05/21/22 21:17 Temperature 97.6 F Pulse Rate 73 67 Respiratory Rate 15 Blood Pressure 176/84 H 172/85 H Pulse Oximetry 99 97 Oxygen Delivery Method Room Air 05/21/22 21:17 05/21/22 21:30 05/21/22 21:30 Temperature Pulse Rate 69 65 Respiratory Rate 17 16 Blood Pressure 133/68 Pulse Oximetry 98 97 Oxygen Delivery Method Room Air 05/21/22 22:00 05/21/22 22:30 05/21/22 23:00 Temperature Pulse Rate 61 72 64 Respiratory Rate 17 18 17 Blood Pressure Pulse Oximetry 96 96 96 Oxygen Delivery Method Room Air Room Air 05/21/22 23:25 05/21/22 23:25 05/21/22 23:30 Temperature Pulse Rate 66 66 Respiratory Rate 16 16 Blood Pressure 131/62 Pulse Oximetry 96 95 Oxygen Delivery Method MDM - GI Bleed Lab Data Result diagrams: 05/21/22 22:13 05/21/22 20:45 Labs: Lab Results 05/21/22 05/21/22 05/21/22 Range/Units 20:45 20:45 20:45 WBC 8.4 (4.5-11.0) X10^3/uL RBC 3.81 L (4.0-5.2) X10^6/uL Hgb 11.5 L (12.0-16.0) g/dL Hct 33.4 L (36-46) % MCV 87.7 (80-100) fL MCH 30.2 (26-34) PG MCHC 34.4 (30-36) % RDW 13.0 (11.6-14.8) % Plt Count 319 (150-400) X10^3/uL Neut % (Auto) 64.1 (50-75) % Lymph % (Auto) 29.9 (25-40) % [place] % (Auto) 4.7 (3-14) % Eos % (Auto) 0.6 L (2-4) % Baso % (Auto) 0.7 (0-2) % Neut # (Auto) 5400 (7929-4177) /uL Lymph # (Auto) 2500 (5910-3881) /uL [place] # (Auto) 400 (0-900) /uL Eos # (Auto) 100 (0-450) /uL Baso # (Auto) 100 (0-100) /uL PT 15.2 H (10.1-12.7) SECONDS INR 1.3 (0.9-1.3) APTT 35 (26-36) SECONDS Sodium 136 L (137-145) mmol/L Potassium 3.4 (3.4-5.1) mmol/L Chloride 99 (98-107) mmol/L Carbon Dioxide 28 (22-32) mmol/L BUN 44 H (7-17) mg/dL Creatinine 0.94 (0.52-1.04) mg/dL Estimated GFR > 60 (>60) mL/min BUN/Creatinine Ratio 46.8 H (6-22) Glucose 122 H (80-110) mg/dL Calcium 8.9 (8.4-10.2) mg/dL Magnesium (1.6-2.3) mg/dL Total Bilirubin 0.9 (0.2-1.3) mg/dL AST 19 (14-36) IU/L ALT 15 (<35) IU/L Alkaline Phosphatase 45 (38-126) U/L Total Protein 6.9 (6.3-8.2) g/dL Albumin 4.0 (3.5-5.0) g/dL Globulin 2.9 (1.7-4.1) g/dL Albumin/Globulin Ratio 1.4 (1.0-2.8) SARS-CoV-2 (PCR) (Negative) Blood Type Antibody Screen 05/21/22 05/21/22 05/21/22 Range/Units 20:45 20:45 22:13 WBC (4.5-11.0) X10^3/uL RBC (4.0-5.2) X10^6/uL Hgb 10.7 L (12.0-16.0) g/dL Hct 31.6 L (36-46) % MCV (80-100) fL MCH (26-34) PG MCHC (30-36) % RDW (11.6-14.8) % Plt Count (150-400) X10^3/uL Neut % (Auto) (50-75) % Lymph % (Auto) (25-40) % [place] % (Auto) (3-14) % Eos % (Auto) (2-4) % Baso % (Auto) (0-2) % Neut # (Auto) (1658-2588) /uL Lymph # (Auto) (0286-5525) /uL [place] # (Auto) (0-900) /uL Eos # (Auto) (0-450) /uL Baso # (Auto) (0-100) /uL PT (10.1-12.7) SECONDS INR (0.9-1.3) APTT (26-36) SECONDS Sodium (137-145) mmol/L Potassium (3.4-5.1) mmol/L Chloride (98-107) mmol/L Carbon Dioxide (22-32) mmol/L BUN (7-17) mg/dL Creatinine (0.52-1.04) mg/dL Estimated GFR (>60) mL/min BUN/Creatinine Ratio (6-22) Glucose (80-110) mg/dL Calcium (8.4-10.2) mg/dL Magnesium 1.9 (1.6-2.3) mg/dL Total Bilirubin (0.2-1.3) mg/dL AST (14-36) IU/L ALT (<35) IU/L Alkaline Phosphatase (38-126) U/L Total Protein (6.3-8.2) g/dL Albumin (3.5-5.0) g/dL Globulin (1.7-4.1) g/dL Albumin/Globulin Ratio (1.0-2.8) SARS-CoV-2 (PCR) (Negative) Blood Type A Positive Antibody Screen Negative 05/21/22 Range/Units 23:27 WBC (4.5-11.0) X10^3/uL RBC (4.0-5.2) X10^6/uL Hgb (12.0-16.0) g/dL Hct (36-46) % MCV (80-100) fL MCH (26-34) PG MCHC (30-36) % RDW (11.6-14.8) % Plt Count (150-400) X10^3/uL Neut % (Auto) (50-75) % Lymph % (Auto) (25-40) % [place] % (Auto) (3-14) % Eos % (Auto) (2-4) % Baso % (Auto) (0-2) % Neut # (Auto) (9213-4687) /uL Lymph # (Auto) (4572-4218) /uL [place] # (Auto) (0-900) /uL Eos # (Auto) (0-450) /uL Baso # (Auto) (0-100) /uL PT (10.1-12.7) SECONDS INR (0.9-1.3) APTT (26-36) SECONDS Sodium (137-145) mmol/L Potassium (3.4-5.1) mmol/L Chloride (98-107) mmol/L Carbon Dioxide (22-32) mmol/L BUN (7-17) mg/dL Creatinine (0.52-1.04) mg/dL Estimated GFR (>60) mL/min BUN/Creatinine Ratio (6-22) Glucose (80-110) mg/dL Calcium (8.4-10.2) mg/dL Magnesium (1.6-2.3) mg/dL Total Bilirubin (0.2-1.3) mg/dL AST (14-36) IU/L ALT (<35) IU/L Alkaline Phosphatase (38-126) U/L Total Protein (6.3-8.2) g/dL Albumin (3.5-5.0) g/dL Globulin (1.7-4.1) g/dL Albumin/Globulin Ratio (1.0-2.8) SARS-CoV-2 (PCR) Negative (Negative) Blood Type Antibody Screen Urine Dip Bedside Urine Glucose Negative Bedside Urine Bilirubin - Negative Bedside Urine Ketone - Negative Urine Specific [place] 1.015 Bedside Urine Occult Blood - Negative Bedside Urine pH 6.0 Bedside Urine Protein - Negative Bedside Urine Urobilinogen - Negative Bedside Urine Nitrite - Negative Bedside Urine Leukocytes - Negative Esterase Discharge Plan Departure Patient Disposition: Admitted as Observation Clinical Impression: Acute GI bleeding, Anticoagulation adequate Admit Date/Time: 05/22/22 00:54 Admit Provider: Sanjana Bragg
[2022-05-21 22:20] LABS: Hematocrit 31.6 % (36-46); Hemoglobin 10.7 g/dL (12.0-16.0)
[2022-05-21] MEDS: PANTOPRAZOLE 40 MG VIAL IV (23:22)
[2022-05-21 23:59] LABS: COVID19 -Nasal RAPID Negative (Negative)
[2022-05-22] VITALS (44 sets, daily range): BP systolic 99–158; BP diastolic 55–105; PULSE 56–126; RESP 11–35; TEMP 36.1–36.9; O2SAT 93–100; BMI 50.3
--- NOTE | 2022-05-22 01:31 | P.HP_ITS ---
History of Present Illness History of Present Illness Date Patient Seen: 05/22/22 Time Patient Seen: 01:31 Chief complaint: weakness, black stool, fever Narrative: Kiana Altamirano is a delightful 67-year-old female with a history of hypothyroidism, anxiety, paroxysmal atrial fibrillation/atrial flutter history of ablation, chronic coagulation on Eliquis, hypertension, history endometrial cancer and traumatic brain injury, with morbid obesity who presented to the ED this morning after two days of severe fatigue, feeling dizzy, weak, lightheaded, pale, reported fevers, and a total of 3 black stools. Patient denies chest pain, shortness of breath, headache, changes in vision, upper respiratory symptoms, cough, abdominal pain, nausea, vomiting, chills, numbness, weakness, gait/balance instability, recent falls, changes to her medication, bleeding from her gums, any wounds with blood loss, hematemesis, hematuria, recent illness injury or trauma. Patient initially presented to the ED with mildly elevated hypertensive urgency BP 176/84, at the time of admit exam patient's blood pressure had normalized vital signs are stable, she is sitting in a wheel chair in the ED rm and is in no distress at this time, continues to be fatigued but it has improved. temp 97.6?, BP 133/68, HR 64, R 17, O2 saturation 96% on room air. HGB 10.7, HCT 31.6 all other hematology labs are within normal limits, BUN 44, glucose 122, liver panel within normal limits, PT of 15.2 but INR is normal at 1.3. Patient establish care with Dr. Mendoza December 2021 and was referred for colonoscopy at that time. Dr. Johnston ED, to notify Dr. Cross who will consult on the patient tomorrow. Patient to be admitted to observation monitor coag labs overnight, surgery consult tomorrow for lower GI bleed. Patient History Medical History Acquired hypothyroidism Anxiety (~1998) Atrial fibrillation, new onset Atrial flutter Chicken pox Chronic anticoagulation Endometrial cancer, grade I (~02/2017) Essential hypertension Family history of colon cancer in father H/O Hendricks's palsy (~1988) History of endometrial cancer Hx of ectopic Iliotibial band syndrome, right leg Measles Meningitis Mixed hyperlipidemia Mumps Paroxysmal atrial fibrillation Pharyngeal spasm Plantar warts (~1998) Pulmonary nodule less than 6 cm determined by computed tomography of lung Rubella Severe obesity (BMI >= 40) Tracheitis (~2015) Traumatic brain injury (~1998) Surgical History Anesthesia H/O section H/O: hysterectomy (~2016) History of hernia repair (~1989) History of (~1987) Family & Social History Family History Father CAD (coronary artery disease) Hyperlipidemia Hypertension Colon cancer History of heart disease Myocardial infarct Mother Diabetes mellitus History of heart disease Hypertension Stroke Myocardial infarct Sister Hypertension Ventricular fibrillation History of heart disease Sister Hypertension COPD (chronic obstructive pulmonary disease) Mental health problem Grandmother Dementia Social History: household members spouse lives independently Yes other knitting, gardening 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- Safety & Behavioral: Feels Safe in Current Yes Environment Been Physically Hurt or No Threatened By a Person Tobacco & Substance use: Smoking Status Never smoker alcohol intake frequency other Substance Use Type does not use Meds Home Medications and Allergies Home Medications Medication Instructions Recorded Confirmed Type apixaban 5 mg tablet (Eliquis) 5 mg PO BID #180 tabs 08/19/20 01/15/22 Rx miscellaneous medical supply #1 ea 06/19/21 01/15/22 Rx flecainide 100 mg tablet 100 mg PO Q12H 07/09/21 01/15/22 History metoprolol tartrate 50 mg tablet 50 mg PO BID 07/09/21 01/15/22 History Massage therapy #1 ea 09/24/21 01/15/22 Rx nystatin 100,000 unit/gram topical 1 applic topical BID #30 grams 11/15/21 01/15/22 Rx powder potassium chloride 10 mEq See Rx Instructions .Route 12/09/21 01/15/22 Rx tablet,extended release .COMPLEX #180 tabs Naltrexone HCL 4.5 mg PO .hs #90 ea 12/12/21 01/15/22 Rx diazepam 5 mg tablet 5 mg PO BID PRN anxiety #20 tabs 02/04/22 Rx levothyroxine 25 mcg tablet 25 mcg PO DAILY #90 tabs 03/30/22 Rx triamterene 37.5 1 tab PO DAILY #90 tabs 03/30/22 Rx mg-hydrochlorothiazide 25 mg tablet Allergies Allergy/AdvReac Type Severity Reaction Status Date / Time Penicillins Allergy Unk Verified 05/21/22 20:40 Review of Systems Review of Systems Narrative: All 12 point systems reviewed with the patient and are negative except otherwise documented. Exam Vital Signs (past 8 hours): - 05/21/22 20:40 05/21/22 21:13 05/21/22 21:17 Temperature 97.6 F Pulse Rate 73 67 Respiratory Rate 15 Blood Pressure 176/84 H 172/85 H Pulse Oximetry 99 97 Oxygen Delivery Method Room Air 05/21/22 21:17 05/21/22 21:30 05/21/22 21:30 Temperature Pulse Rate 69 65 Respiratory Rate 17 16 Blood Pressure 133/68 Pulse Oximetry 98 97 Oxygen Delivery Method Room Air 05/21/22 22:00 05/21/22 22:30 05/21/22 23:00 Temperature Pulse Rate 61 72 64 Respiratory Rate 17 18 17 Blood Pressure Pulse Oximetry 96 96 96 Oxygen Delivery Method Room Air Room Air 05/21/22 23:25 05/21/22 23:25 05/21/22 23:30 Temperature Pulse Rate 66 66 Respiratory Rate 16 16 Blood Pressure 131/62 Pulse Oximetry 96 95 Oxygen Delivery Method 05/22/22 01:14 Temperature Pulse Rate 72 Respiratory Rate 17 Blood Pressure 129/71 Pulse Oximetry 96 Oxygen Delivery Method Oxygen Delivery Method Room Air Narrative Exam Narrative: General: Patient is a pleasant morbidly obese female fatigued, in no distress at this time. HEENT: Normocephalic, atraumatic, extraocular muscles intact, oral pharynx is clear and mucous membranes are moist. Neck is supple and symmetric, trachea is midline, no adenopathy, no thyroid enlargement, nontender, no masses palpated. Negative for JVD Chest: Normal AP diameter and contour without kyphoscoliosis, no nasal flaring, retractions, or tachypneic labored Lungs: Auscultation of all lung moura are clear without adventitious sounds, wheezes, rhonchi, or rales. Cardio: S1 & S2 with regular rate and rhythm without murmur, rubs, or gallops, no carotid bruit, no cardiac pulsations present. Abdomen: Soft nontender, unable to asses for organomegaly, or masses, due to body habitus. Bowel sounds are present in all 4 quadrants without guarding or rebound, no CVA tenderness. Musculoskeletal: Muscle strength and tone appear equal and within normal limits, no deformity, crepitus, effusions, cyanosis, clubbing present. Full range of motion intact radial and pedal pulses are normal. Skin: Warm dry and intact without rashes, ulcerations or petechiae. Neuro: Alert and orientated x3, sensation to touch intact, no gross deficits noted of cranial nerves. Psych: Patient has a well-kept appearance, appropriate affect, mental status attitude thought context and judgment are appropriate for age. Objective Labs Result Diagrams: 05/21/22 22:13 05/21/22 20:45 Labs: Laboratory Results - last 24 hr 05/21/22 05/21/22 05/21/22 20:45 20:45 20:45 WBC 8.4 RBC 3.81 L Hgb 11.5 L Hct 33.4 L MCV 87.7 MCH 30.2 MCHC 34.4 RDW 13.0 Plt Count 319 Neut % (Auto) 64.1 Lymph % (Auto) 29.9 [place] % (Auto) 4.7 Eos % (Auto) 0.6 L Baso % (Auto) 0.7 Neut # (Auto) 5400 Lymph # (Auto) 2500 [place] # (Auto) 400 Eos # (Auto) 100 Baso # (Auto) 100 PT 15.2 H INR 1.3 APTT 35 Sodium 136 L Potassium 3.4 Chloride 99 Carbon Dioxide 28 BUN 44 H Creatinine 0.94 Estimated GFR > 60 BUN/Creatinine Ratio 46.8 H Glucose 122 H Calcium 8.9 Total Bilirubin 0.9 AST 19 ALT 15 Alkaline Phosphatase 45 Total Protein 6.9 Albumin 4.0 Globulin 2.9 Albumin/Globulin Ratio 1.4 SARS-CoV-2 (PCR) Blood Type Antibody Screen 05/21/22 05/21/22 05/21/22 20:45 22:13 23:27 WBC RBC Hgb 10.7 L Hct 31.6 L MCV MCH MCHC RDW Plt Count Neut % (Auto) Lymph % (Auto) [place] % (Auto) Eos % (Auto) Baso % (Auto) Neut # (Auto) Lymph # (Auto) [place] # (Auto) Eos # (Auto) Baso # (Auto) PT INR APTT Sodium Potassium Chloride Carbon Dioxide BUN Creatinine Estimated GFR BUN/Creatinine Ratio Glucose Calcium Total Bilirubin AST ALT Alkaline Phosphatase Total Protein Albumin Globulin Albumin/Globulin Ratio SARS-CoV-2 (PCR) Negative Blood Type A Positive Antibody Screen Negative Assessment & Plan Assessment & Plan narrative: Kiana Altamirano is a 67-year-old female with a history of hypothyroidism, anxiety, paroxysmal atrial fibrillation/atrial flutter history of ablation, chronic coagulation on Eliquis, hypertension, history endometrial cancer, traumatic brain injury, and morbid obesity who presented to the ED severely symptomatic for lower GI bleeding following 48 hrs of black stools. 1. Lower GI bleed, on chronic anticoagulation Eliquis, acute, present on admission -patient's baseline hemoglobin 13-upon admit today HGB 10.7, HCT 31.6, Hemoccult positive in ED, patient reports multiple black tarry stool. -patient is hemodynamically stable at this time and in no distress -consult for Dr. Cross general surgery ordered -NPO-except for meds -gentle rehydration as patient feels dehydrated NS@60cc/hr -IV Protonix initiated in ED will continue 20 mg IV b.i.d. -hold patient's Eliquis and no VTE medication prophylaxis -patient on bed rest with bedside commode not to get up without assist and not to use the restroom. -Monitor for bleeding, hemorrhagic shock -Trend H/H -PCP Dr. Mendoza had done a referral for colonoscopy 12/2021, pt was planning on completing in the fall. 2. Paroxysmal atrial fibrillation, with history of ablation, on chronic anticoagulation, typical right atrial flutter, chronic, present on admission- stable rate controlled -managed by [facility] reviewed last cardiology note 02/2022 -holding Eliquis -continue flecainide, metoprolol 3. Essential hypertension, acute on chronic, present on admission -initial presenting BP 176/84, upon admit 133/68 -continue Maxzide -monitor on Telemed 4. Hypothyroidism, acquired, chronic, present on admission -continue levothyroxine 5. Anxiety, chronic, present on admission -continue diazepam 6. Morbid obesity as evidence by BMI 50.3, acute on chronic, present on admission -dietary consult placed regarding patient education nutritional changes diet lifestyle changes and weight loss Code status:Full Surrogate decision maker: Spouse Ry GOMEZ PCR:Negative DVT/VTE prophylaxis: No medication at this time SCDs only Disposition: Patient admitted for observation consult General surgery tomorrow, expected length of stay less than 2 midnights. I have utilized all available immediate resources to obtain, update, or review the patient's current medications. I confirmed that the patient's advanced care plan is present, Code status is documented and/or surrogate decision maker is listed in the patient's medical record. Time Spent With Patient Critical Care time: I spent a total of [] minutes of critical care time on this patient's care today; this time is exclusive of procedural time.
[2022-05-22] MEDS: ACETAMINOPHEN 325 MG TABLET 650 MG PO (01:45)
[2022-05-22 01:57] LABS: Magnesium 1.9 mg/dL (1.6-2.3)
[2022-05-22] MEDS: SODIUM CHLORIDE 0.9% 500 ML 60 ML IV (03:17)
[2022-05-22 06:45] LABS: Hematocrit 30.6 % (36-46); Hemoglobin 10.4 g/dL (12.0-16.0)
[2022-05-22 06:51] LABS: INR 1.2 (0.9-1.3); Prothrombin Time 13.9 SECONDS (10.1-12.7)
[2022-05-22 06:56] LABS: BUN Creatinine Ratio 50.6 (6-22); Blood Urea Nitrogen 44 mg/dL (7-17); Calcium 8.9 mg/dL (8.4-10.2); Carbon Dioxide 30 mmol/L (22-32); Chloride 102 mmol/L (98-107); Estimated Glomerular Filt Rate > 60 mL/min (>60); Glucose 110 mg/dL (80-110); HEMOLYSIS < 15 (0-50); Potassium 3.1 mmol/L (3.4-5.1); Sodium 136 mmol/L (137-145)
[2022-05-22] MEDS: PANTOPRAZOLE 40 MG VIAL IV ×2 (09:17→20:53)
[2022-05-22] MEDS: METOPROLOL IR 50 MG TABLET PO (10:09)
[2022-05-22] MEDS: TRIAMTERENE/HCTZ 37.5/25 CAPSULE 1 CAP PO (10:13)
[2022-05-22] MEDS: LEVOTHYROXINE 25 MCG TABLET PO (10:13)
--- NOTE | 2022-05-22 10:15 | PM.CALLCOV.1 ---
Call Coverage Note Note Date of Patient Contact: 05/22/22 Time of Patient Contact: 10:15 Narrative of Care Provided: EGD today. Consult note to follow
[2022-05-22] MEDS: FLECAINIDE 100 MG TABLET 50 MG PO (10:17)
--- NOTE | 2022-05-22 10:49 | PC.NURSE ---
Patient took her home med, Naltrexone. States it comes from the compounding pharmacy.
[2022-05-22 15:09] LABS: Hematocrit 28.1 % (36-46); Hemoglobin 9.6 g/dL (12.0-16.0)
--- NOTE | 2022-05-22 16:17 | DIET.CONS ---
Dietary Consultation Note Admission Date: 05/22/2022 00:54 Assessment: 67 y/o F admitted with lower GI bleed. RD consulted for elevated BMI. Rec OP nutrition therapy. Ht: 157.48 cm Wt: 124.5 kg BMI: 50.3 Last BM: 05/22/22 (05/22/22 12:00) MNA: 14 Rommel Score: 20 Diet: 05/22/22 01:12 NPO Diet Diet Modifications: NPO Type: NPO except for Meds Electronically Signed by: Elva Rice 05/22/22 16:17 Clinical Dietitian [address] [id number]
[2022-05-22] MEDS: LACTATED RINGERS 1,000 ML 100 ML IV (20:58)
--- NOTE | 2022-05-22 21:26 | P.CONS_ITS ---
History of Present Illness Consult details Date Patient Seen: 05/22/22 Time Patient Seen: 21:26 Chief complaint: weakness, black stool, fever Narrative: 67-year-old woman admitted to the hospital for a GI bleed. Over last couple of days she has felt weak and had new dark tarry stools. She takes Eliquis chronically secondary to history of atrial fibrillation and recently was taking NSAIDs in addition. She has never had a previous GI bleed. No abdominal pain nausea or emesis. She has had a previous colonoscopy 5 years ago, normal. Her father had colon cancer. Meds Home Medications and Allergies Home Medications Medication Instructions Recorded Confirmed Type apixaban 5 mg tablet (Eliquis) 5 mg PO BID #180 tabs 08/19/20 05/22/22 Rx miscellaneous medical supply #1 ea 06/19/21 05/22/22 Rx flecainide 100 mg tablet 50 mg PO Q12H 07/09/21 05/22/22 History metoprolol tartrate 50 mg tablet 50 mg PO BID 07/09/21 05/22/22 History Massage therapy #1 ea 09/24/21 05/22/22 Rx nystatin 100,000 unit/gram topical 1 applic topical BID #30 grams 11/15/21 05/22/22 Rx powder potassium chloride 10 mEq See Rx Instructions .Route 12/09/21 05/22/22 Rx tablet,extended release .COMPLEX #180 tabs Naltrexone HCL 4.5 mg PO .hs #90 ea 12/12/21 05/22/22 Rx diazepam 5 mg tablet 5 mg PO BID PRN anxiety #20 tabs 02/04/22 05/22/22 Rx levothyroxine 25 mcg tablet 25 mcg PO DAILY #90 tabs 03/30/22 05/22/22 Rx triamterene 37.5 1 tab PO DAILY #90 tabs 03/30/22 05/22/22 Rx mg-hydrochlorothiazide 25 mg tablet Allergies Allergy/AdvReac Type Severity Reaction Status Date / Time Penicillins Allergy Unk Verified 05/21/22 20:40 Exam Vital Signs (past 8 hours): - 05/22/22 16:50 05/22/22 16:50 05/22/22 19:35 Temperature 97.7 F 98.3 F Pulse Rate 59 L 64 Pulse Rate [Orthostatic Lying] 59 L Pulse Rate [Orthostatic Sitting] 62 Pulse Rate [Orthostatic Standing] 80 Respiratory Rate 16 18 Blood Pressure 117/64 110/75 Blood Pressure [Orthostatic Lying] 117/64 Blood Pressure [Orthostatic Sitting] 137/82 Blood Pressure [Orthostatic Standing] 136/90 Pulse Oximetry 96 95 Oxygen Flow Rate 0 0 05/22/22 20:00 Temperature Pulse Rate Pulse Rate [Orthostatic Lying] 58 L Pulse Rate [Orthostatic Sitting] 64 Pulse Rate [Orthostatic Standing] Respiratory Rate Blood Pressure Blood Pressure [Orthostatic Lying] 117/73 Blood Pressure [Orthostatic Sitting] 110/75 Blood Pressure [Orthostatic Standing] Pulse Oximetry Oxygen Flow Rate Oxygen Delivery Method Room Air Oxygen Flow Rate 0 Narrative Exam Narrative: General adult woman alert oriented no acute distress Chest nonlabored respiration Abdomen soft nontender nondistended. Objective Labs Result Diagrams: 05/22/22 14:50 05/22/22 06:40 Labs: Laboratory Results - last 24 hr 05/21/22 05/21/22 05/21/22 20:45 20:45 20:45 Hgb Hct PT INR APTT 35 Sodium 136 L Potassium 3.4 Chloride 99 Carbon Dioxide 28 BUN 44 H Creatinine 0.94 Estimated GFR > 60 BUN/Creatinine Ratio 46.8 H Glucose 122 H Calcium 8.9 Magnesium Total Bilirubin 0.9 AST 19 ALT 15 Alkaline Phosphatase 45 Total Protein 6.9 Albumin 4.0 Globulin 2.9 Albumin/Globulin Ratio 1.4 SARS-CoV-2 (PCR) Blood Type A Positive Antibody Screen Negative 05/21/22 05/21/22 05/21/22 20:45 22:13 23:27 Hgb 10.7 L Hct 31.6 L PT INR APTT Sodium Potassium Chloride Carbon Dioxide BUN Creatinine Estimated GFR BUN/Creatinine Ratio Glucose Calcium Magnesium 1.9 Total Bilirubin AST ALT Alkaline Phosphatase Total Protein Albumin Globulin Albumin/Globulin Ratio SARS-CoV-2 (PCR) Negative Blood Type Antibody Screen 05/22/22 05/22/22 05/22/22 06:40 06:40 06:40 Hgb 10.4 L Hct 30.6 L PT 13.9 H INR 1.2 APTT Sodium 136 L Potassium 3.1 L Chloride 102 Carbon Dioxide 30 BUN 44 H Creatinine 0.87 Estimated GFR > 60 BUN/Creatinine Ratio 50.6 H Glucose 110 Calcium 8.9 Magnesium Total Bilirubin AST ALT Alkaline Phosphatase Total Protein Albumin Globulin Albumin/Globulin Ratio SARS-CoV-2 (PCR) Blood Type Antibody Screen 05/22/22 14:50 Hgb 9.6 L Hct 28.1 L PT INR APTT Sodium Potassium Chloride Carbon Dioxide BUN Creatinine Estimated GFR BUN/Creatinine Ratio Glucose Calcium Magnesium Total Bilirubin AST ALT Alkaline Phosphatase Total Protein Albumin Globulin Albumin/Globulin Ratio SARS-CoV-2 (PCR) Blood Type Antibody Screen [facility] Medical History Acquired hypothyroidism Anxiety (~1998) Atrial fibrillation, new onset Atrial flutter Chicken pox Chronic anticoagulation Endometrial cancer, grade I (~02/2017) Essential hypertension Family history of colon cancer in father H/O Hendricks's palsy (~1988) History of endometrial cancer Hx of ectopic Iliotibial band syndrome, right leg Measles Meningitis Mixed hyperlipidemia Mumps Paroxysmal atrial fibrillation Pharyngeal spasm Plantar warts (~1998) Pulmonary nodule less than 6 cm determined by computed tomography of lung Rubella Severe obesity (BMI >= 40) Tracheitis (~2015) Traumatic brain injury (~1998) Surgical History Anesthesia H/O section H/O: hysterectomy (~2016) History of hernia repair (~1989) History of (~1987) Family History Father CAD (coronary artery disease) Hyperlipidemia Hypertension Colon cancer History of heart disease Myocardial infarct Mother Diabetes mellitus History of heart disease Hypertension Stroke Myocardial infarct Sister Hypertension Ventricular fibrillation History of heart disease Sister Hypertension COPD (chronic obstructive pulmonary disease) Mental health problem Grandmother Dementia Social History marital status: details: (Ry), [employer] 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 number of children: 3 household members: spouse lives independently: Yes housing: house education level: college occupational status: employed current occupational exposures/hazards: No 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 Lived in [place], raised her kids [place] [employer] exchange program Assessment & Plan Assessment and plan (1) Acute GI bleeding: Status: Acute Plan 67-year-old woman on anticoagulation with an upper GI bleed hemodynamically stable. I recommended that we proceed with esophagoduodenoscopy for further evaluation and possible treatment. Overview of the procedure was discussed with the patient at the bedside. Procedural risks including bleeding missed diagnosi s intestinal perforation and anesthetic complications were discussed. Her questions have been answered and she is in agreement with this plan. Time Spent With Patient Critical Care time: I spent a total of [] minutes of critical care time on this patient's care today; this time is exclusive of procedural time.
--- NOTE | 2022-05-22 22:14 | PM.OP.EGD ---
Operative Date/Time/Diagnoses Date of procedure: 05/22/22 Time of procedure: 22:14 Pre-op diagnosis: GI bleed Post-op diagnosis: same Procedure & Clinicians Study performed: Esophagoduodenoscopy Same procedure as scheduled: Yes Indications: Anemia, GI bleed Surgeon: Trevin Patel Procedure Notes Procedure in detail: Patient was placed supine on the table.. Time out was performed. Procedural sedation was administered by anesthesia. A bite block was placed. the scope was inserted into the mouth and advanced through the esophagus and into the stomach. The stomach was notable for mild gastritis. There was no ulcer, active bleeding or signs of recent hemorrhage. The pylorus was intubated and the duodenum was normal to the 2nd portion. The scope was retroflexed within the stomach and there was no hiatal hernia. The scope was withdrawn into the esophagus the Z line was seen at 40 cm from the incisions. There was no Vaca's esophagitis or masses or strictures. Stomach was desufflated and scope removed. Patient tolerated procedure well. Findings: gastritis Specimen(s): none sent Complications: none Impression: Mild gastritis Post-procedure Plan for aftercare: Continue omeprazole. If no signs of further bleeding can likely discharge tomorrow Disposition: Acute Care
[2022-05-23] VITALS (7 sets, daily range): BP systolic 105–155; BP diastolic 59–91; PULSE 65–81; RESP 16–18; TEMP 36.1–36.6; O2SAT 94–97
[2022-05-23 04:57] LABS: Add Manual Diff / Slide Review NO; Basophils Absolute Auto 0 /uL (0-100); Basophils Percent Auto 0.3 % (0-2); Eosinophils Absolute Auto 100 /uL (0-450); Eosinophils Percent Auto 1.3 % (2-4); Hematocrit 25.7 % (36-46); Hemoglobin 8.9 g/dL (12.0-16.0); Lymphocytes Absolute Auto 2900 /uL (1100-4500); Lymphocytes Percent Auto 37.9 % (25-40); Mean Corpuscular HGB Conc 34.7 % (30-36); Mean Corpuscular Hemoglobin 30.3 PG (26-34); Mean Corpuscular Volume 87.3 fL (80-100); Monocytes Absolute Auto 500 /uL (0-900); Monocytes Percent Auto 6.7 % (3-14); Neutrophils Absolute Auto 4100 /uL (1500-7000); Neutrophils Percent Auto 53.8 % (50-75); Platelet Count 225 X10^3/uL (150-400); Red Blood Cell Count 2.94 X10^6/uL (4.0-5.2); Red Cell Distribution Width 13.2 % (11.6-14.8); White Blood Cell Count 7.6 X10^3/uL (4.5-11.0)
[2022-05-23 05:09] LABS: BUN Creatinine Ratio 32.9 (6-22); Blood Urea Nitrogen 27 mg/dL (7-17); Calcium 8.6 mg/dL (8.4-10.2); Carbon Dioxide 29 mmol/L (22-32); Chloride 103 mmol/L (98-107); Estimated Glomerular Filt Rate > 60 mL/min (>60); Glucose 82 mg/dL (80-110); HEMOLYSIS < 15 (0-50); Magnesium 1.8 mg/dL (1.6-2.3); Potassium 3.4 mmol/L (3.4-5.1); Sodium 137 mmol/L (137-145)
--- NOTE | 2022-05-23 06:15 | PC.NURSE ---
End of shift note. Care of patient from [id number]. Patient AAOX4, denies pain. Went down for and Egd at 2100. After Egd, patient was given a diet order, tolerating clears, can advance to regular as tolerated. Up to chair for two hours with FWW and SBA. Voiding via BSC with SBA and FWW. Passing gas, has had no BMs this shift.
[2022-05-23] MEDS: POTASSIUM CHLORIDE 20 MEQ TAB 40 MEQ PO (08:41)
[2022-05-23] MEDS: PANTOPRAZOLE 40 MG VIAL IV (08:41)
[2022-05-23] MEDS: LEVOTHYROXINE 25 MCG TABLET PO (08:42)
[2022-05-23] MEDS: TRIAMTERENE/HCTZ 37.5/25 CAPSULE 1 CAP PO (08:42)
[2022-05-23] MEDS: FLECAINIDE 100 MG TABLET 50 MG PO (08:42)
[2022-05-23 13:35] LABS: Hematocrit 27.1 % (36-46); Hemoglobin 9.4 g/dL (12.0-16.0)
--- NOTE | 2022-05-23 13:52 | PM.DS.1 ---
History of Present Illness History of Present Illness Date Patient Seen: 05/23/22 Chief complaint: weakness, black stool, fever Narrative: Per Sanjana Bragg, [facility]-: Kiana Altamirano is a delightful 67-year-old female with a history of hypothyroidism, anxiety, paroxysmal atrial fibrillation/atrial flutter history of ablation, chronic coagulation on Eliquis, hypertension, history endometrial cancer and traumatic brain injury, with morbid obesity who presented to the ED this morning after two days of severe fatigue, feeling dizzy, weak, lightheaded, pale, reported fevers, and a total of 3 black stools. Patient denies chest pain, shortness of breath, headache, changes in vision, upper respiratory symptoms, cough, abdominal pain, nausea, vomiting, chills, numbness, weakness, gait/balance instability, recent falls, changes to her medication, bleeding from her gums, any wounds with blood loss, hematemesis, hematuria, recent illness injury or trauma. Patient initially presented to the ED with mildly elevated hypertensive urgency BP 176/84, at the time of admit exam patient's blood pressure had normalized vital signs are stable, she is sitting in a wheel chair in the ED rm and is in no distress at this time, continues to be fatigued but it has improved. temp 97.6?, BP 133/68, HR 64, R 17, O2 saturation 96% on room air. HGB 10.7, HCT 31.6 all other hematology labs are within normal limits, BUN 44, glucose 122, liver panel within normal limits, PT of 15.2 but INR is normal at 1.3. Patient establish care with Dr. Mendoza December 2021 and was referred for colonoscopy at that time. Dr. Johnston ED, to notify Dr. Cross who will consult on the patient tomorrow. Patient to be admitted to observation monitor coag labs overnight, surgery consult tomorrow for lower GI bleed. Discharge Providers Provider Date of admission: 05/22/22 00:54 Discharge Date: 05/23/22 Primary care physician: Daniel Mendoza MD Consults: 05/22/22 01:10 Consult to General Surgery Routine Comment: Consulting Provider: Hiram Cross Reason for consultation: Lower GI bleed Has provider been notified: Yes 05/22/22 01:49 Consult to Dietitian, Adult Routine Comment: Reason For Exam: BMI 50.3 Discharge provider: Dennis Díaz DO Summary Hospital Course Discharge Diagnosis: 1. Lower GI bleed, on chronic anticoagulation Eliquis, acute, present on admission 2. Paroxysmal atrial fibrillation, with history of ablation, on chronic anticoagulation, typical right atrial flutter, chronic, present on admission-stable rate controlled 3. Essential hypertension, acute on chronic, present on admission 4. Hypothyroidism, acquired, chronic, present on admission 5. Anxiety, chronic, present on admission 6. Morbid obesity as evidence by BMI 50.3, acute on chronic, present on admission Hospital Course: Kiana Altamirano is a 67-year-old female with a history of hypothyroidism, anxiety, paroxysmal atrial fibrillation/atrial flutter history of ablation, chronic coagulation on Eliquis, hypertension, history endometrial cancer, traumatic brain injury, and morbid obesity who presented to the ED severely symptomatic for lower GI bleeding following 48 hrs of black stools. She was started on PPI therapy, and underwent EGD which showed mild gastritis but no active bleeding. H/h remained stable around 9, and patient was tolerating a diet. Her chronic anticoagulation is recommended to be held for now, she will continue outpatient on PPI therapy at 40 mg daily for gastritis. No other medication changes are recommended at this time. Exam Vital Signs (past 8 hours): - 05/23/22 07:45 05/23/22 12:00 05/23/22 13:07 Temperature 97.0 F L Pulse Rate 71 Pulse Rate [Orthostatic Lying] 65 Pulse Rate [Orthostatic Sitting] 65 Pulse Rate [Orthostatic Standing] 81 Respiratory Rate 16 Blood Pressure 107/69 Blood Pressure [Orthostatic Lying] 123/70 Blood Pressure [Orthostatic Sitting] 133/91 H Blood Pressure [Orthostatic Standing] 155/86 H Pulse Oximetry 96 Oxygen Delivery Method Room Air Oxygen Flow Rate 0 05/23/22 13:07 Temperature Pulse Rate Pulse Rate [Orthostatic Lying] Pulse Rate [Orthostatic Sitting] Pulse Rate [Orthostatic Standing] Respiratory Rate Blood Pressure Blood Pressure [Orthostatic Lying] Blood Pressure [Orthostatic Sitting] Blood Pressure [Orthostatic Standing] Pulse Oximetry 96 Oxygen Delivery Method Room Air Oxygen Flow Rate Oxygen Delivery Method Room Air Oxygen Flow Rate 0 Narrative Exam Narrative: General:? Patient is well developed and well nourished, in no distress at this time. Chest:? Normal AP diameter and contour without kyphoscoliosis, no tachypnea, equal chest rise bilaterally. Lungs:? CTA b/l no wheezing rhonchi or rales. Cardio:?RRR no m/r/g. Abdomen: S NT ND. Objective Labs Result Diagrams: 05/23/22 13:33 05/23/22 04:43 Labs: Laboratory Results - last 24 hr 05/22/22 05/23/22 05/23/22 14:50 04:43 04:43 WBC 7.6 RBC 2.94 L Hgb 9.6 L 8.9 L Hct 28.1 L 25.7 L MCV 87.3 MCH 30.3 MCHC 34.7 RDW 13.2 Plt Count 225 Neut % (Auto) 53.8 Lymph % (Auto) 37.9 Pratt % (Auto) 6.7 Eos % (Auto) 1.3 L Baso % (Auto) 0.3 Neut # (Auto) 4100 Lymph # (Auto) 2900 Pratt # (Auto) 500 Eos # (Auto) 100 Baso # (Auto) 0 Sodium 137 Potassium 3.4 Chloride 103 Carbon Dioxide 29 BUN 27 H Creatinine 0.82 Estimated GFR > 60 BUN/Creatinine Ratio 32.9 H Glucose 82 Calcium 8.6 Magnesium 1.8 05/23/22 13:33 WBC RBC Hgb 9.4 L Hct 27.1 L MCV MCH MCHC RDW Plt Count Neut % (Auto) Lymph % (Auto) Pratt % (Auto) Eos % (Auto) Baso % (Auto) Neut # (Auto) Lymph # (Auto) Pratt # (Auto) Eos # (Auto) Baso # (Auto) Sodium Potassium Chloride Carbon Dioxide BUN Creatinine Estimated GFR BUN/Creatinine Ratio Glucose Calcium Magnesium [facility] Medical History Acquired hypothyroidism Anxiety (~1998) Atrial fibrillation, new onset Atrial flutter Chicken pox Chronic anticoagulation Endometrial cancer, grade I (~02/2017) Essential hypertension Family history of colon cancer in father H/O Hendricks's palsy (~1988) History of endometrial cancer Hx of ectopic Iliotibial band syndrome, right leg Measles Meningitis Mixed hyperlipidemia Mumps Paroxysmal atrial fibrillation Pharyngeal spasm Plantar warts (~1998) Pulmonary nodule less than 6 cm determined by computed tomography of lung Rubella Severe obesity (BMI >= 40) Tracheitis (~2015) Traumatic brain injury (~1998) Surgical History Anesthesia H/O section H/O: hysterectomy (~2016) History of hernia repair (~1989) History of (~1987) Family History Father CAD (coronary artery disease) Hyperlipidemia Hypertension Colon cancer History of heart disease Myocardial infarct Mother Diabetes mellitus History of heart disease Hypertension Stroke Myocardial infarct Sister Hypertension Ventricular fibrillation History of heart disease Sister Hypertension COPD (chronic obstructive pulmonary disease) Mental health problem Grandmother Dementia Social History marital status: details: (Ry), [employer] 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 Lived in [place], raised her kids [employer] School exchange program Discharge Plan Discharge Plan Patient Disposition: Home Provider Discharge Comment: You were admitted to the hospital with a GI bleed. You had mild gastritis on EGD, h/h was stable and improved with PPI therapy and cessation of your apixaban. Continue to hold apixaban and continue PPI at home. Please follow up with your primary care provider and update your cardiology group on the need for apixaban cessation. Continue outpatient process for colonoscopy as well. Discharge orders & Medications Prescriptions: New pantoprazole 40 mg tablet,delayed release (DR/EC) 40 mg PO DAILY 30 Days Qty: 30 0RF Continued (DME) miscellaneous medical supply Misc See Rx Instructions .ROUTE .MEDSUPPLY Qty: 1 0RF Rx Instructions: Disabled Parking Permit (DME) Massage therapy See Rx Instructions .Route .MEDSUPPLY Qty: 1 0RF Rx Instructions: Twice monthly nystatin 100,000 unit/gram powder 1 applic topical BID Qty: 30 5RF potassium chloride 10 mEq tablet extended release See Rx Instructions .ROUTE .COMPLEX Qty: 180 3RF Dose Instruction: TAKE 2 TABLETS BY MOUTH DAILY Rx Instructions: TAKE 2 TABLETS BY MOUTH DAILY Naltrexone HCL capsule 4.5 mg PO .hs Qty: 90 3RF Rx Instructions: Take one cap by mouth every night. diazepam 5 mg tablet 5 mg PO BID PRN (Reason: anxiety) Qty: 20 2RF levothyroxine 25 mcg tablet 25 mcg PO DAILY Qty: 90 3RF triamterene-hydrochlorothiazid 37.5-25 mg tablet 1 tab PO DAILY Qty: 90 3RF flecainide 100 mg tablet 50 mg PO Q12H metoprolol tartrate 50 mg tablet 50 mg PO BID Discontinued Eliquis 5 mg tablet 5 mg PO BID Qty: 180 1RF Follow up/Referrals: Daniel Mendoza MD [Primary Care Provider] - Diet/Activity/Treatments Diet: Diet as Tolerated Activity: As tolerated Discharge Data Primary Care Provider: Daniel Mendoza V Attending Provider: Sanjana Bragg VTE Deep Vein Thrombosis/Pulmonary Embolism Present on Admission: No
--- NOTE | 2022-05-23 15:02 | CM.DANOTE ---
Initial DCP Assessment Note Pt is a 67 yo female, resident [facility], arrives w/weakness, black stool, fever and admitted observation for GI bleed, EGD shows gastritis. Discharged home today, sx much improved PCP: Daniel Mendoza Payer: Emanuel Reviewed chart, pt discussed in multidisciplinary rounds this morning. Patient in indp and active at baseline, spouse is [facility] primary care physician Dr Ry Altamirano. No barriers identified at this time to patient's safe discharge home w/spouse to assist; close outpatient f/u recommended. NICOLLE Lion Discharge Planning/Care Management CM Discharge Assessment Start: 05/23/22 15:00 Freq: Status: Active Protocol: Document 05/23/22 15:01 TEO (Rec: 05/23/22 15:01 TEO [id number]) Discharge Planning Assessment Assigned Desk Lieutenant NICOLLE Jeff DPOA/Assigned Designee Name Ry Altamirano, spouse Contact Information [phone] Advance Directives? No History Provided By Patient,Medical Record Prior Living Arrangements House Household Members spouse Type of transporation used prior to Drives own vehicle admit Independent with ADL's Yes Is patient alert and oriented? Yes Barriers to Discharge No Discharge Plan Home Referrals Initiated None needed
== END 2022-05-23 15:30 | disposition home or self-care (01) ==
LOC: ED 21:18 → AC 05-22 00:55
PROVIDERS: Internal Medicine; Nurse Practitioner Family; Surgery; Admitting Provider Nurse Practitioner Family; Emergency Provider Emergency Medicine; PCP Internal Medicine; Visit Provider Nurse Practitioner Family
PROC: 0DJ08ZZ Inspection of Upper Intestinal Tract, Via Natural or Artificial Opening Endoscopic (ICD-10-PCS; CPT 43235; principal; 2022-05-22 16:45)
DX: K29.50 Unspecified chronic gastritis without bleeding (principal); R53.1 Weakness; F41.9 Anxiety disorder, unspecified; E03.9 Hypothyroidism, unspecified; I10 Essential (primary) hypertension; Z79.01 Long term (current) use of anticoagulants; E66.01 Morbid (severe) obesity due to excess calories; Z68.43 Body mass index [BMI] 50.0-59.9, adult; Z20.822 Contact with and (suspected) exposure to COVID-19
CPT/HCPCS: 43235; 36415; 80048; 80053; 81003; 83735; 85014; 85018; 85025; 85610; 85730; 86850; 86900; 86901; 87635; 93005; 96361; 96374; 96376; 99224; 99284; C9803; G0378; C9113; J2704

== ENCOUNTER → 2022-06-01 15:57 | Outpatient (CLI) | payer OTHER, SELFPAY ==
[2022-05-22 12:00] VITALS: BMI 50.3
[2022-06-01 17:46] LABS: Add Manual Diff / Slide Review NO; Basophils Absolute Auto 0 /uL (0-100); Basophils Percent Auto 0.7 % (0-2); Eosinophils Absolute Auto 100 /uL (0-450); Eosinophils Percent Auto 1.9 % (2-4); Hematocrit 29.5 % (36-46); Hemoglobin 10.1 g/dL (12.0-16.0); Lymphocytes Absolute Auto 2000 /uL (1100-4500); Lymphocytes Percent Auto 28.9 % (25-40); Mean Corpuscular HGB Conc 34.4 % (30-36); Mean Corpuscular Hemoglobin 29.8 PG (26-34); Mean Corpuscular Volume 86.6 fL (80-100); Monocytes Absolute Auto 500 /uL (0-900); Monocytes Percent Auto 7.1 % (3-14); Neutrophils Absolute Auto 4100 /uL (1500-7000); Neutrophils Percent Auto 61.4 % (50-75); Platelet Count 380 X10^3/uL (150-400); Red Cell Distribution Width 13.5 % (11.6-14.8); White Blood Cell Count 6.8 X10^3/uL (4.5-11.0)
[2022-06-01 18:18] LABS: HEMOLYSIS < 15 (0-50); Iron 46 ug/dL (37-170)
[2022-06-01 18:30] LABS: Percent Iron Saturation 12 % (15-50); Total Iron Binding Capacity 374 ug/dL (265-497); Transferrin 279 mg/dL (206-381)
[2022-06-01 18:46] LABS: Ferritin 8 ng/mL (11-264)
== END ==
PROVIDERS: PCP Internal Medicine; Referring Provider Internal Medicine; Visit Provider Internal Medicine
DX: D62 Acute posthemorrhagic anemia (principal)
CPT/HCPCS: 36415; 82728; 83540; 83550; 85025

== ENCOUNTER → 2022-07-13 09:23 | Outpatient (CLI) | payer OTHER, SELFPAY ==
[2022-05-22 12:00] VITALS: BMI 50.3
[2022-07-13 11:52] LABS: COVID19 -Nasal RAPID Negative (Negative)
== END ==
PROVIDERS: PCP Internal Medicine; Visit Provider Surgery
DX: Z20.822 Contact with and (suspected) exposure to COVID-19 (principal); Z01.812 Encounter for preprocedural laboratory examination
CPT/HCPCS: 87635; C9803

== ENCOUNTER 2022-07-14 13:51 | Day surgery (SDC) | payer OTHER, SELFPAY ==
[2022-05-22 12:00] VITALS: BMI 50.3
[2022-07-14] VITALS (7 sets, daily range): BP systolic 97–133; BP diastolic 61–81; PULSE 55–72; RESP 12–20; TEMP 36.2–36.7; O2SAT 94–98; BMI 51.0
[2022-07-14] MEDS: LACTATED RINGERS 1,000 ML 42 ML IV (15:05)
--- NOTE | 2022-07-14 15:53 | PM.HP.1 ---
History of Present Illness History of Present Illness Date Patient Seen: 07/14/22 Time Patient Seen: 15:53 Chief complaint: SDC Narrative: Kiana is a 67 year old woman who is due for a colonscopy. She had a recent GI bleed. See prior notes for details. Patient History Medical History Acquired hypothyroidism Anemia due to acute blood loss Anxiety (~1998) Atrial fibrillation, new onset Chicken pox Chronic anticoagulation Endometrial cancer, grade I (~02/2017) Essential hypertension Family history of colon cancer in father H/O Hendricks's palsy (~1988) History of endometrial cancer Hx of ectopic Iliotibial band syndrome, right leg Measles Meningitis Mixed hyperlipidemia Mumps Paroxysmal atrial fibrillation Pharyngeal spasm Plantar warts (~1998) Pulmonary nodule less than 6 cm determined by computed tomography of lung Rubella Severe obesity (BMI >= 40) Tracheitis (~2015) Traumatic brain injury (~1998) Surgical History Anesthesia H/O section H/O: hysterectomy (~2016) History of hernia repair (~1989) History of (~1987) Family & Social History Family History Father CAD (coronary artery disease) Hyperlipidemia Hypertension Colon cancer History of heart disease Myocardial infarct Mother Diabetes mellitus History of heart disease Hypertension Stroke Myocardial infarct Sister Hypertension Ventricular fibrillation History of heart disease Sister Hypertension COPD (chronic obstructive pulmonary disease) Mental health problem Grandmother Dementia Social History: household members spouse lives independently Yes other knitting, gardening Tobacco & Substance use: Smoking Status Never smoker alcohol intake never alcohol intake frequency other Substance Use Type does not use Meds Home Medications and Allergies Home Medications Medication Instructions Recorded Confirmed Type miscellaneous medical supply #1 ea 06/19/21 06/01/22 Rx flecainide 100 mg tablet 50 mg PO Q12H 07/09/21 07/14/22 History metoprolol tartrate 50 mg tablet 50 mg PO BID 07/09/21 06/01/22 History Massage therapy #1 ea 09/24/21 06/01/22 Rx nystatin 100,000 unit/gram topical 1 applic topical BID #30 grams 11/15/21 07/14/22 Rx powder potassium chloride 10 mEq See Rx Instructions .Route 12/09/21 06/01/22 Rx tablet,extended release .COMPLEX #180 tabs Naltrexone HCL 4.5 mg PO .hs #90 ea 12/12/21 06/01/22 Rx diazepam 5 mg tablet 5 mg PO BID PRN anxiety #20 tabs 02/04/22 07/14/22 Rx levothyroxine 25 mcg tablet 25 mcg PO DAILY #90 tabs 03/30/22 07/14/22 Rx triamterene 37.5 1 tab PO DAILY #90 tabs 03/30/22 07/14/22 Rx mg-hydrochlorothiazide 25 mg tablet Parking Permit... #1 ea 06/01/22 06/01/22 Rx apixaban 5 mg tablet (Eliquis) 5 mg PO BID 06/01/22 07/14/22 History sodium sul 1.479 gram-potas ch See Rx Instructions PO PER PKG DIR 06/11/22 Rx 0.188 gram-magnes sul 0.225 gram #24 tabs tablet (Sutab) Allergies Allergy/AdvReac Type Severity Reaction Status Date / Time Penicillins Allergy Unk Verified 07/14/22 14:23 Exam Vital Signs (past 8 hours): - 07/14/22 14:32 Temperature 97.5 F L Pulse Rate 66 Respiratory Rate 16 Blood Pressure 121/68 Pulse Oximetry 96 Oxygen Delivery Method Room Air Oxygen Delivery Method Room Air Const Nutritional Appearance: obese Assessment & Plan Assessment and plan (1) Anemia due to acute blood loss: Status: Acute Plan Kiana is a 67-year-old woman who is here for colonoscopy. Risks and benefits reviewed and she would like to proceed. Time Spent With Patient Critical Care time: I spent a total of [] minutes of critical care time on this patient's care today; this time is exclusive of procedural time.
--- NOTE | 2022-07-14 16:23 | P.OP.COLON_ITS ---
Operative Date/Time/Diagnoses Date of procedure: 07/14/22 Time of procedure: 16:24 Pre-op diagnosis: Colon cancer screening Post-op diagnosis: same Procedure & Clinicians Study performed: Colonoscopy Same procedure as scheduled: Yes Surgeon: Hiram Cross Procedure Notes Procedure in detail: Surgeon: Hiram Cross MD Anesthesia: Monitored anesthesia Procedure: The patient was brought to the endoscopy suite, placed in left lateral decubitus position. The patient was connected to monitoring devices. A time-out was performed. Sedation was administered. Once the patient was adequately sedated, a digital rectal exam was performed and was normal. The scope was then inserted and advanced to the cecum where the appendiceal orifice was identified and photographed. The scope was then slowly withdrawn over greater than 6 minutes. The mucosa was thoroughly inspected. There was pand iverticulosis but no polyps were seen. The scope was retroflexed in the rectum. There were mild internal hemorrhoids. The scope was straightened and removed. The patient was awakened and brought to recovery. EBL: 0 Findings: Pandiverticulosis Scope withdrawal time: 8 Post-procedure Recommendations: Colonoscopy in 5 years Disposition: PACU
== END 2022-07-14 17:13 | disposition home or self-care (01) ==
PROVIDERS: PCP Internal Medicine; Referring Provider Surgery; Visit Provider Surgery
PROC: 0DJD8ZZ Inspection of Lower Intestinal Tract, Via Natural or Artificial Opening Endoscopic (ICD-10-PCS; CPT 45378; principal; 2022-07-14 15:15)
DX: Z12.11 Encounter for screening for malignant neoplasm of colon (principal); K57.30 Diverticulosis of large intestine without perforation or abscess without bleeding; K64.8 Other hemorrhoids
CPT/HCPCS: 45378

== ENCOUNTER → 2023-01-01 09:59 | Outpatient (CLI) | payer OTHER, SELFPAY ==
[2022-05-22 12:00] VITALS: BMI 50.3
[2023-01-01 11:01] LABS: Add Manual Diff / Slide Review NO; Basophils Absolute Auto 0 /uL (0-100); Basophils Percent Auto 0.7 % (0-2); Eosinophils Absolute Auto 100 /uL (0-450); Hematocrit 38.9 % (36-46); Hemoglobin 13.2 g/dL (12.0-16.0); Lymphocytes Absolute Auto 1900 /uL (1100-4500); Lymphocytes Percent Auto 32.2 % (25-40); Mean Corpuscular Hemoglobin 28.8 PG (26-34); Mean Corpuscular Volume 84.7 fL (80-100); Monocytes Absolute Auto 400 /uL (0-900); Monocytes Percent Auto 6.2 % (3-14); Neutrophils Absolute Auto 3500 /uL (1500-7000); Neutrophils Percent Auto 58.9 % (50-75); Platelet Count 275 X10^3/uL (150-400); Red Blood Cell Count 4.59 X10^6/uL (4.0-5.2); Red Cell Distribution Width 14.4 % (11.6-14.8); White Blood Cell Count 5.9 X10^3/uL (4.5-11.0)
[2023-01-01 11:18] LABS: INR 1.1 (0.9-1.3)
[2023-01-01 11:21] LABS: PTT Partial Thromboplastin Tim 33 SECONDS (26-36)
[2023-01-01 11:23] LABS: Alanine Aminotransferase 19 IU/L (<35); Albumin 3.9 g/dL (3.5-5.0); Albumin Globulin Ratio 1.3 (1.0-2.8); Alkaline Phosphatase 53 U/L (38-126); Aspartate Aminotransferase 31 IU/L (14-36); BUN Creatinine Ratio 22.4 (6-22); Bilirubin Total 1.1 mg/dL (0.2-1.3); Blood Urea Nitrogen 17 mg/dL (7-17); Calcium 9.1 mg/dL (8.4-10.2); Carbon Dioxide 31 mmol/L (22-32); Chloride 101 mmol/L (98-107); Cholesterol 173 mg/dL (140-199); Estimated Glomerular Filt Rate > 60 mL/min (>60); Glucose 99 mg/dL (80-110); HDL Cholesterol 51 mg/dL (40-60); HEMOLYSIS < 15 (0-50); LDL Cholesterol Calculated 108 mg/dL (<100); Potassium 3.6 mmol/L (3.4-5.1); Sodium 138 mmol/L (137-145); Total Protein 6.9 g/dL (6.3-8.2); Triglycerides 70 mg/dL (35-150)
[2023-01-01 11:55] LABS: TSH w/ Reflex to FT4 1.51 uIU/mL (0.47-4.68)
[2023-01-01 11:58] LABS: Ferritin 11 ng/mL (11-264)
[2023-01-01 12:16] LABS: Iron 77 ug/dL (37-170)
[2023-01-01 12:29] LABS: Folate > 20.0 ng/mL (2.76-20.0); Vitamin B12 748 pg/mL (239-931)
[2023-01-01 12:49] LABS: Vitamin D 25 Hydroxy (D3) 50.2 ng/mL (30.0-100.0)
[2023-01-02 06:08] LABS: x Labcorp Estim. Avg Glu (eAG) 117 mg/dL (.); x Labcorp Hemoglobin A1c 5.7 % (4.8-5.6)
[2023-01-05 08:37] LABS: Cotinine Negative ng/mL (Cutoff=300)
[2023-01-06 11:47] LABS: Vitamin B1 117.2 nmol/L (66.5-200.0)
== END ==
PROVIDERS: Internal Medicine; Family Provider Family Medicine; PCP Family Medicine; Referring Provider Family Medicine; Visit Provider Family Medicine
DX: E03.9 Hypothyroidism, unspecified (principal); E78.2 Mixed hyperlipidemia; I10 Essential (primary) hypertension; I48.0 Paroxysmal atrial fibrillation; Z71.3 Dietary counseling and surveillance; E66.01 Morbid (severe) obesity due to excess calories
CPT/HCPCS: 36415; 80053; 80061; 80321; 82306; 82607; 82728; 82746; 83036; 83540; 84425; 84443; 85025; 85610; 85730

== ENCOUNTER → 2023-03-01 14:44 | Outpatient (CLI) | payer OTHER, SELFPAY ==
[2022-05-22 12:00] VITALS: BMI 50.3
[2023-03-01 16:19] LABS: Erythrocyte Sedimentation Rate 21 MM/HR (0-20)
[2023-03-01 16:21] LABS: C-Reactive Protein Quant 2.6 mg/dL (<1.0)
== END ==
PROVIDERS: Family Provider Family Medicine; PCP Family Medicine; Referring Provider Family Medicine; Visit Provider Family Medicine
DX: R51.9 Headache, unspecified (principal)
CPT/HCPCS: 36415; 85651; 86140

== ENCOUNTER 2023-03-16 13:30 | Outpatient (RCR) | payer OTHER, SELFPAY ==
[2022-05-22 12:00] VITALS: BMI 50.3
--- NOTE | 2023-01-18 16:00 | PT.OPPOC ---
Physical, Occupational & Speech Therapy At [facility] Current Diagnoses Pain in right hip (01/18/23) Iliotibial band syndrome, right leg (01/18/23) Other abnormalities of gait and mobility (01/18/23) Visit Care Team Role Provider Type Cait Aguilar DO Attending Provider Physician Family Provider Primary Care Provider Referring Provider Specialty: Medical Address: [address] [place] [address], [address], [place], [address] Email: [email or web address] Plan Of Care PT-OP-T Assessment and Plan Start: 01/16/23 22:33 Freq: Status: Active Protocol: Document 01/18/23 12:47 AMB (Rec: 01/18/23 13:32 AMB [id number]) Physical Therapy Assessment Rehab Potential Rehabilitation Potential Good Evaluation Complexity Number of Personal Factors/Comorbidities 1-2 Number of Body Systems Impaired 4 or More Clinical Presentation at Evaluation Evolving Impairments Impairments Activity Tolerance,Balance, Functional Activities, Functional Mobility,Gait,Pain, ROM,Strength Goals HEP Short Term Goal (STG) Kiana will be independent with a HEP for her hip strengthening. STG Duration 5 weeks Two Impairment Transfers Short Term Goal (STG) Kiana will perform a car transfer without hip pain. STG Duration 5 weeks Correction Goal (LTG) Kiana will perform a floor transfer with environmental support with SBA. LTG Duration 10 weeks One Impairment Gait Short Term Goal (STG) Kiana will ambulate with good posture with 2/10 hip pain or less for at least 500 feet with SBA. STG Duration 5 weeks Correction Goal (LTG) Kiana will ascend and descend a flight of stairs without fear of falling and without an increase in hip pain. LTG Duration 10 weeks Assessment Summary Assessment Janet attends physical therapy with a long history of R hip dysfunction that has progressed so that she is now reliant on 4WW or SPC for all gait. She is unable to get up from the floor, has difficulty with stairs and is fearful of falling. Her R hip is very limited in rotational ROM and she does not have neutral hip extension, her right hip is also weak. She will benefit from physical therapy to improve the strength of her hip and her transfers. Given that she was born with hip dysplasia and has had such a long history of tightness in the hip, she is unlikely to improve her hip range significantly, although we could certainly work on soft tissue mobility around the joint. She is considering bariatric surgery in the near future, and then after weight loss would want to re- evaluate her mobility and hip pain before considering hip replacement surgery. Physical Therapy Plan Frequency and Duration Frequency of Treatment 2x/Week Duration of treatment (weeks) 10 Plan of Care Start Date 01/18/23 Plan of Care End Date 03/30/23 Therapeutic Interventions Therapeutic Interventions Balance Training,Gait Training ,Home Exercise Program,Manual Therapy,Neuromuscular Re- education,Patient/Caregiver Education,Therapeutic Activities,Therapeutic Exercises Modalities Cold Pack/Ice Massage,Electric Stimulation,Hot Packs Next Visit Focus/Plan Next Note Type Treatment Note Next Visit Plan HEP for hip strengthening, gait training, balance training, transfer training: car transfer, floor transfer Plan of Care Dates Plan of Care Start Date 01/18/23 Plan of Care End Date 03/30/23 Electronically Signed by: Savanna Jj, PT 01/19/23 0839 If you are in agreement with this Plan of Care, please return a signed and dated copy. I have reviewed this Plan of Care and certify that the skilled therapy services above are required to meet the patient?s needs. Physician Signature Date Printed Name and Credentials Clinical Instructor Signature Printed Name and Credentials
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
== END 2023-03-17 15:20 | disposition home or self-care (01) ==
LOC: PHYS 13:30
PROVIDERS: Family Provider Family Medicine; PCP Family Medicine; Referring Provider Family Medicine; Visit Provider Family Medicine
DX: M76.31 Iliotibial band syndrome, right leg (principal); R26.89 Other abnormalities of gait and mobility; M25.551 Pain in right hip
CPT/HCPCS: 97110; 97112; 97162

== ENCOUNTER 2023-05-24 12:25 | Emergency (ER) | payer OTHER, SELFPAY ==
[2023-05-20 09:51] VITALS: BMI 50.3
[2023-05-24] VITALS (21 sets, daily range): BP systolic 129–195; BP diastolic 59–115; PULSE 55–79; RESP 16–28; TEMP 36.9; O2SAT 94–99; BMI 51.9
--- NOTE | 2023-05-24 12:55 | DI.RAD.S_ITS ---
PROCEDURE: XR CHEST 1V INDICATIONS: chest pain TECHNIQUE: One view of the chest was acquired. COMPARISON: [facility], CR, XR CHEST 1V, 04/30/2021, 7:12. FINDINGS: Surgical changes and devices: None. Lungs and pleura: A few linear opacities in the lung bases likely represent atelectasis. No pleural effusions or pneumothorax. Mediastinum: Mediastinal contours are unchanged. Heart size is enlarged. Bones and chest wall: No suspicious bony lesions. Overlying soft tissues appear unremarkable. IMPRESSION: 1. Probable mild atelectasis in the lung bases. Dictated by: Daniel Bedolla M.D. on 05/24/2023 at 13:48 Approved by: Daniel Bedolla M.D. on 05/24/2023 at 13:49
--- NOTE | 2023-05-24 13:03 | DI.CT.S_ITS ---
PROCEDURE: CT HEAD/BRAIN WO CON INDICATIONS: WEAKNESS/AMS TECHNIQUE: Noncontrast 4.5 mm thick angled axial sections acquired from the foramen magnum to the vertex, with coronal and sagittal reformats. For radiation dose reduction, the following was used: automated exposure control, adjustment of mA and/or kV according to patient size. COMPARISON: None. FINDINGS: Image quality: Excellent. Brain: There is a large mass in the right frontal lobe with indistinct margins measuring up to approximately 6 cm. There is associated vasogenic edema and mass effect with leftward midline shift of up to 1.1 cm. There is associated effacement of the right lateral ventricle. Basilar cisterns are patent. A few scattered small foci of slight high density in the mass are nonspecific and may represent hyperdense components, calcifications, or petechial hemorrhage. Otherwise, no definite intracranial hemorrhage.1 Skull and face: Calvarium and visualized facial bones are intact, without suspicious lesions. Sinuses: Visualized sinuses and mastoids are clear. IMPRESSION: 1. Large right frontal lobe mass with associated vasogenic edema and mass effect including leftward midline shift as described. A few internal foci of mild high density are nonspecific and may represent hyperdense components, calcifications, or petechial hemorrhage. The findings are consistent with a neoplasm, such as metastatic disease or glioma. Recommend further evaluation with a contrast enhanced brain MRI. Findings discussed with Dr. Sheffield on 05/24/2023 at 1:34 p.m.. Dictated by: Daniel Bedolla M.D. on 05/24/2023 at 13:34 Approved by: Daniel Bedolla M.D. on 05/24/2023 at 13:44
--- NOTE | 2023-05-24 13:08 | ED_ITS ---
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 Approximately 2 months ago patient began to have difficulty walking, particularly when using her left leg. She has been in physical therapy and normally walks with a walker. Three weeks ago patient contracted COVID-19 and her symptoms seemed to worsen. She seemed to be very globally weak with headaches. Today the patient was unable to move her left leg at all and had an episode of stool incontinence. is a primary care physician and states that he is unable to care for her in her extremely debilitated state at this time. Patient denies any pain. Related Data Home Medications Medication Instructions Recorded Confirmed flecainide 100 mg tablet 50 mg PO Q12H 07/09/21 08/25/22 metoprolol tartrate 50 mg tablet 50 mg PO BID 07/09/21 08/25/22 apixaban 5 mg tablet (Eliquis) 5 mg PO BID 06/01/22 08/25/22 Previous Rx's Medication Instructions Recorded miscellaneous medical supply #1 ea 06/19/21 nystatin 100,000 unit/gram topical 1 applic topical BID #30 grams 11/15/21 powder sodium sul 1.479 gram-potas ch See Rx Instructions PO PER PKG DIR 06/11/22 0.188 gram-magnes sul 0.225 gram #24 tabs tablet (Sutab) diazepam 5 mg tablet 5 mg PO BID PRN anxiety #20 tabs 08/25/22 acyclovir 400 mg tablet 400 mg PO TID #30 tabs 09/30/22 Disabled Parking Permit #1 ea 11/17/22 Massage therapy #1 ea 11/17/22 potassium chloride 10 mEq See Rx Instructions .Route 12/14/22 tablet,extended release .COMPLEX #180 tabs Naltrexone HCL 4.5 mg PO BEDTIME #90 ea 03/02/23 prednisone 10 mg tablet 10 mg PO DAILY #6 tabs 03/17/23 prednisone 20 mg tablet 20 mg PO DAILY #15 tabs 03/17/23 levothyroxine 25 mcg tablet 25 mcg PO DAILY #90 tabs 03/30/23 triamterene 37.5 1 tab PO DAILY #90 tabs 04/14/23 mg-hydrochlorothiazide 25 mg tablet oxybutynin chloride 5 mg 5 mg PO DAILY #30 tabs 05/05/23 tablet,extended release 24 hr potassium chloride 20 mEq oral 20 meq PO DAILY #100 ea 05/05/23 packet trazodone 50 mg tablet 25 mg PO BEDTIME PRN insomnia #60 05/21/23 tabs Allergies Allergy/AdvReac Type Severity Reaction Status Date / Time Penicillins Allergy Hives Verified 05/24/23 12:44 Review of Systems Review of Systems Narrative: CONSTITUTIONAL- Denies: fever, chills, fatigue HEENT- Denies: sore throat, nosebleed, vision changes RESPIRATORY- Denies: shortness of breath, cough, wheezing CARDIAC- Denies: chest pain, edema, orthopnea GI- Denies: abdominal pain, nausea, vomiting, constipation, diarrhea - Denies: frequency, dysuria, hematuria, flank pain MSK- Denies: extremity pain, extremity swelling, joint pain, joint swelling SKIN- Denies: rash, itching, burn, swelling NEUROLOGICAL-reports: Generalized weakness, headache Denies: numbness, weakness, dizziness PSYCHIATRIC- Denies: anxiety, depression, suicidal ideation, homicidal ideation Patient History Medical History (Updated 05/24/23 @ 19:38 by Whitley Sheffield MD) Acquired hypothyroidism Anemia due to acute blood loss Anxiety (~1998) Atrial fibrillation, new onset Chicken pox Chronic anticoagulation Endometrial cancer, grade I (~02/2017) Essential hypertension Family history of colon cancer in father H/O Hendricks's palsy (~1988) History of endometrial cancer Hx of ectopic Iliotibial band syndrome, right leg Measles Meningitis Mixed hyperlipidemia Mumps Paroxysmal atrial fibrillation Pharyngeal spasm Plantar warts (~1998) Pre-bariatric surgery nutrition evaluation Pulmonary nodule less than 6 cm determined by computed tomography of lung Right temporal headache Rubella Severe obesity (BMI >= 40) Tracheitis (~2015) Traumatic brain injury (~1998) Surgical History Anesthesia H/O section H/O: hysterectomy (~2016) History of hernia repair (~1989) History of (~1987) Family History Father CAD (coronary artery disease) Hyperlipidemia Hypertension Colon cancer History of heart disease Myocardial infarct Mother Diabetes mellitus History of heart disease Hypertension Stroke Myocardial infarct Sister Hypertension Ventricular fibrillation History of heart disease Sister Hypertension COPD (chronic obstructive pulmonary disease) Mental health problem Grandmother Dementia Social History marital status: details: (Yr), [employer] 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 Lived in [place], raised her kids [employer] exchange program Smoking Status: Never smoker alcohol intake frequency: other Substance Use Type: does not use Exam Initial Vital Signs Initial Vital Signs: Vital Signs Temperature 98.4 F 05/24/23 12:37 Pulse Rate 60 05/24/23 12:37 Respiratory Rate 16 05/24/23 12:37 Blood Pressure 160/91 H 05/24/23 12:37 Pulse Oximetry 98 05/24/23 12:37 Oxygen Delivery Method Room Air 05/24/23 12:37 Const: Well-nourished, debilitated, frail, appears older than stated age Eyes: PERRL, EOMI, conjunctiva normal ENT: Atraumatic, dentition normal, mucous membranes moist Cardiac: regular rate, regular rhythm RESP: unlabored, clear bilaterally, no wheezing GI: Atraumatic, soft, nontender, nondistended, no rebound, no guarding MSK: Atraumatic, full range of motion, pulses equal Skin: Warm, Dry, intact, no rashes Neuro: AO x3, CN II-XII grossly intact, moves all extremities, L sided facial droop (chronic), Psych: flat affect, mood normal, not suicidal, not homicidal Course Orders Ordered: ED Orders 05/24/23 12:55 Consult to FISHERIES INSPECTOR - Screed Operator Stat XR chest 1V Stat EKG-12 Lead Stat 05/24/23 13:03 CT head/brain wo con Stat 05/24/23 13:37 Ammonia (NH3) Stat Complete Blood Count AUTO DIFF Stat Comprehensive Metabolic Panel Stat Lipase Stat Magnesium Stat PTT Partial Thromboplastin Denys Stat Prothrombin Time INR Stat Troponin & CK Cardiac Panel Stat 05/24/23 13:40 COVID19 -Nasal RAPID Stat 05/24/23 13:41 MR head/brain wo/w con Stat 05/24/23 14:05 Urinalysis and Microscopic Stat Dexamethasone (Dexamethasone 4 Mg/Ml Vial) 4 mg IV Q6H MIREILLE Last Admin: 05/24/23 17:28 Dose: Not Given Documented By: SHWETA Discontinued Medications Dexamethasone (Dexamethasone 10 Mg/Ml Vial) 10 mg IV NOW ONE Stop: 05/24/23 13:42 Last Admin: 05/24/23 14:11 Dose: 10 mg Documented By: RENETTA Levetiracetam 500 mg/ Sodium (Chloride) 105 mls @ 420 mls/hr IV BID MIREILLE Levetiracetam 500 mg/ Sodium (Chloride) 105 mls @ 420 mls/hr IV NOW ONE Stop: 05/24/23 18:01 Last Infusion: 05/24/23 18:51 Dose: 0 mls/hr Documented By: Admin: 05/24/23 18:27 Dose: 420 mls/hr Documented By: SHWETA Reevaluation(s) Reevaluation #1: Laboratory work reviewed. I received a call from Radiology stating that the patient's CT scan was significant for a large right-sided frontal mass with midline shift and possible petechial hemorrhages inside the mass. I updated patient and at bedside. We will get a MRI with contrast for further assessment. Empiric Decadron ordered. Reevaluation #2: MRI reviewed. 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 She has already received Decadron. Call placed to Neurosurgery at [facility]. I discussed the case with Dr. Mar of Neurosurgery, who recommended addition of 4 mg Decadron q.6 hours and 500 mg b.i.d. of Keppra. Patient will need to be transferred to [facility] for neurosurgical services. Neurosurgeon stated that he would discuss with solution coordinator on obtaining a bed for the patient on an urgent basis. Reevaluation #3: Patient accepted to [facility]. Transferred to outside hospital in stable condition. She received dose of Keppra prior to departure. Consultations Consultation #1: Dr. Zaid CUMMINGS -accepted patient for transfer. Recommended 4 mg Decadron q.6 hours and 500 mg Keppra b.i.d. Vital Signs Vital signs: Vital Signs - 8 hr 05/24/23 12:37 05/24/23 13:35 05/24/23 13:35 Temperature 98.4 F Pulse Rate 60 62 Respiratory Rate 16 Blood Pressure 160/91 H 132/67 Pulse Oximetry 98 99 Oxygen Delivery Method Room Air 05/24/23 13:59 05/24/23 14:00 05/24/23 14:04 Temperature Pulse Rate 55 L 64 Respiratory Rate Blood Pressure 147/102 H Pulse Oximetry 97 96 Oxygen Delivery Method Room Air 05/24/23 15:01 05/24/23 15:03 05/24/23 15:03 Temperature Pulse Rate 70 69 Respiratory Rate Blood Pressure 151/81 H Pulse Oximetry 98 98 Oxygen Delivery Method Room Air 05/24/23 15:30 05/24/23 15:31 05/24/23 15:31 Temperature Pulse Rate 65 64 Respiratory Rate 20 17 Blood Pressure 152/78 H Pulse Oximetry 97 97 Oxygen Delivery Method 05/24/23 16:00 05/24/23 16:01 05/24/23 16:01 Temperature Pulse Rate 63 64 Respiratory Rate 21 28 H Blood Pressure 170/78 H Pulse Oximetry 98 98 Oxygen Delivery Method Room Air 05/24/23 16:30 05/24/23 16:31 05/24/23 16:31 Temperature Pulse Rate 66 66 Respiratory Rate 20 22 Blood Pressure 195/115 H Pulse Oximetry 97 97 Oxygen Delivery Method Room Air 05/24/23 17:00 05/24/23 17:01 05/24/23 17:01 Temperature Pulse Rate 66 67 Respiratory Rate 18 19 Blood Pressure 144/75 H Pulse Oximetry 97 97 Oxygen Delivery Method 05/24/23 17:30 05/24/23 17:31 05/24/23 17:31 Temperature Pulse Rate 69 69 Respiratory Rate 22 19 Blood Pressure 144/74 H Pulse Oximetry 97 97 Oxygen Delivery Method 05/24/23 18:00 05/24/23 18:01 05/24/23 18:01 Temperature Pulse Rate 72 68 Respiratory Rate 22 25 H Blood Pressure 174/79 H Pulse Oximetry 95 94 Oxygen Delivery Method 05/24/23 18:30 05/24/23 18:31 05/24/23 18:31 Temperature Pulse Rate 77 79 Respiratory Rate 23 23 Blood Pressure 129/59 L Pulse Oximetry 94 95 Oxygen Delivery Method Room Air MDM - Weakness Differential Diagnosis Differential diagnosis: Likely anemia, hypoglycemia and dehydration Lab Data 05/24/23 13:37 05/24/23 13:37 Labs: Lab Results 05/24/23 05/24/23 05/24/23 Range/Units 13:37 13:37 13:37 WBC 10.7 (4.5-11.0) X10^3/uL RBC 4.56 (4.0-5.2) X10^6/uL Hgb 13.6 (12.0-16.0) g/dL Hct 39.6 (36-46) % MCV 86.8 (80-100) fL MCH 29.9 (26-34) PG MCHC 34.4 (30-36) % RDW 13.2 (11.6-14.8) % Plt Count 390 (150-400) X10^3/uL Neut % (Auto) 73.8 (50-75) % Lymph % (Auto) 17.5 L (25-40) % [place] % (Auto) 8.0 (3-14) % Eos % (Auto) 0.3 L (2-4) % Baso % (Auto) 0.4 (0-2) % Neut # (Auto) 7900 H (6553-6919) /uL Lymph # (Auto) 1900 (6560-8706) /uL [place] # (Auto) 900 (0-900) /uL Eos # (Auto) 0 (0-450) /uL Baso # (Auto) 0 (0-100) /uL PT 14.4 H (10.1-12.7) SECONDS INR 1.3 (0.9-1.3) APTT 31 (26-36) SECONDS Sodium 137 (137-145) mmol/L Potassium 3.7 (3.4-5.1) mmol/L Chloride 99 (98-107) mmol/L Carbon Dioxide 30 (22-32) mmol/L BUN 13 (7-17) mg/dL Creatinine 0.78 (0.52-1.04) mg/dL Estimated GFR > 60 (>60) mL/min BUN/Creatinine Ratio 16.7 (6-22) Glucose 105 (80-110) mg/dL Calcium 9.7 (8.4-10.2) mg/dL Magnesium 2.1 (1.6-2.3) mg/dL Total Bilirubin 1.5 H (0.2-1.3) mg/dL AST 25 (14-36) IU/L ALT 30 (<35) IU/L Alkaline Phosphatase 59 (38-126) U/L Ammonia (9-30) umol/L Total Creatine Kinase 72 (30-135) U/L Troponin I < 0.012 (0.01-0.034) ng/mL Total Protein 7.1 (6.3-8.2) g/dL Albumin 4.0 (3.5-5.0) g/dL Globulin 3.1 (1.7-4.1) g/dL Albumin/Globulin Ratio 1.3 (1.0-2.8) Lipase 175 (23-300) U/L Urine Color Urine Appearance Urine pH (4.5-8.0) Ur Specific [place] (1.000-1.035) Urine Protein (Negative) Urine Glucose (UA) (Negative) g/dL Urine Ketones (NEGATIVE) Urine Occult Blood (Negative) Urine Nitrate (Negative) Urine Bilirubin (NEGATIVE) Urine Urobilinogen (0.2) E.U./dL Ur Leukocyte Esterase (NEGATIVE) Urine RBC (0-5/HPF) Urine WBC (0-5/HPF) Ur Squamous Epith Cells (0-5/HPF) Urine Bacteria (None) Hyaline Casts (None) Ur Culture Indicated? SARS-CoV-2 (PCR) (Negative) 05/24/23 05/24/23 05/24/23 Range/Units 13:37 13:40 14:05 WBC (4.5-11.0) X10^3/uL RBC (4.0-5.2) X10^6/uL Hgb (12.0-16.0) g/dL Hct (36-46) % MCV (80-100) fL MCH (26-34) PG MCHC (30-36) % RDW (11.6-14.8) % Plt Count (150-400) X10^3/uL Neut % (Auto) (50-75) % Lymph % (Auto) (25-40) % [place] % (Auto) (3-14) % Eos % (Auto) (2-4) % Baso % (Auto) (0-2) % Neut # (Auto) (8953-7983) /uL Lymph # (Auto) (0692-4401) /uL [place] # (Auto) (0-900) /uL Eos # (Auto) (0-450) /uL Baso # (Auto) (0-100) /uL PT (10.1-12.7) SECONDS INR (0.9-1.3) APTT (26-36) SECONDS Sodium (137-145) mmol/L Potassium (3.4-5.1) mmol/L Chloride (98-107) mmol/L Carbon Dioxide (22-32) mmol/L BUN (7-17) mg/dL Creatinine (0.52-1.04) mg/dL Estimated GFR (>60) mL/min BUN/Creatinine Ratio (6-22) Glucose (80-110) mg/dL Calcium (8.4-10.2) mg/dL Magnesium (1.6-2.3) mg/dL Total Bilirubin (0.2-1.3) mg/dL AST (14-36) IU/L ALT (<35) IU/L Alkaline Phosphatase (38-126) U/L Ammonia < 9 L (9-30) umol/L Total Creatine Kinase (30-135) U/L Troponin I (0.01-0.034) ng/mL Total Protein (6.3-8.2) g/dL Albumin (3.5-5.0) g/dL Globulin (1.7-4.1) g/dL Albumin/Globulin Ratio (1.0-2.8) Lipase (23-300) U/L Urine Color Yellow Urine Appearance Clear Urine pH 6.5 (4.5-8.0) Ur Specific [place] 1.010 (1.000-1.035) Urine Protein Negative (Negative) Urine Glucose (UA) Negative (Negative) g/dL Urine Ketones Negative (NEGATIVE) Urine Occult Blood Negative (Negative) Urine Nitrate Negative (Negative) Urine Bilirubin Negative (NEGATIVE) Urine Urobilinogen 1.0 (0.2) E.U./dL Ur Leukocyte Esterase Negative (NEGATIVE) Urine RBC 0-1/hpf (0-5/HPF) Urine WBC 0-1/hpf (0-5/HPF) Ur Squamous Epith Cells 0-1 /hpf (0-5/HPF) Urine Bacteria None seen (None) Hyaline Casts 0-1/lpf (None) Ur Culture Indicated? Cult not indicated SARS-CoV-2 (PCR) Negative (Negative) MDM Narrative Medical decision making narrative: Rapid deconditioning, no longer able to function at home. states that patient was unable to move her leg while using her walker at home, however on my exam patient has no focal neurologic deficit other than her longstanding left- sided facial droop. She is able to move all of her extremities with good strength equally. Critical Care Time Critical Care Time Critical Care Time: Yes Total Critical Care Time: 53 Attestation: Neurovascular assessment, discussion with Radiology, discussion with Neurosurgery, administration of antiepileptics and steroids. Discharge Plan Departure Patient Disposition: [facility] Clinical Impression: Brain mass, Generalized weakness, Midline shift of brain Prescriptions: No Action (DME) miscellaneous medical supply Misc See Rx Instructions .ROUTE .MEDSUPPLY Qty: 1 0RF Rx Instructions: Disabled Parking Permit nystatin 100,000 unit/gram powder 1 applic topical BID Qty: 30 5RF Sutab 1.479-0.188- 0.225 gram tablet See Rx Instructions PO PER PKG DIR Qty: 24 0RF Rx Instructions: Take as directed by Physician acyclovir 400 mg tablet 400 mg PO TID Qty: 30 1RF potassium chloride 10 mEq tablet extended release See Rx Instructions .ROUTE .COMPLEX Qty: 180 3RF Hold Instructions: try other formulation Dose Instruction: TAKE 2 TABLETS BY MOUTH DAILY Rx Instructions: TAKE 2 TABLETS BY MOUTH DAILY Naltrexone HCL capsule 4.5 mg PO BEDTIME Qty: 90 1RF Rx Instructions: Take one cap by mouth every night. levothyroxine 25 mcg tablet 25 mcg PO DAILY Qty: 90 3RF triamterene-hydrochlorothiazid 37.5-25 mg tablet 1 tab PO DAILY Qty: 90 2RF Eliquis 5 mg tablet 5 mg PO BID Patient Comments: on held from GI bleed in Beginin of June 2022 diazepam 5 mg tablet 5 mg PO BID PRN (Reason: anxiety) Qty: 20 2RF (DME) Disabled Parking Permit See Rx Instructions .ROUTE .MEDSUPPLY Qty: 1 0RF Rx Instructions: Valid for 5 years (DME) Massage therapy See Rx Instructions .Route .MEDSUPPLY Qty: 1 0RF Rx Instructions: Twice monthly for upper back pain, stress, and anxiety prednisone 20 mg tablet 20 mg PO DAILY Qty: 15 0RF Rx Instructions: 20mg daily until improved (then 10mg x 3 days, then 5x3 days then off) prednisone 10 mg tablet 10 mg PO DAILY Qty: 6 0RF Rx Instructions: once improved stop taking 20mg and take 10mg x 3 days, then 5x3 days then off oxybutynin chloride 5 mg tablet extended release 24hr 5 mg PO DAILY Qty: 30 0RF potassium chloride 20 mEq packet 20 meq PO DAILY Qty: 100 0RF flecainide 100 mg tablet 50 mg PO Q12H metoprolol tartrate 50 mg tablet 50 mg PO BID trazodone 50 mg tablet 25 mg PO BEDTIME PRN (Reason: insomnia) Qty: 60 1RF Referrals: Cait Aguilar DO [Primary Care Provider] -
--- NOTE | 2023-05-24 13:41 | DI.MRI.S_ITS ---
PROCEDURE: MR HEAD/BRAIN WO/W CON INDICATIONS: FRONTAL LOBE MASS TECHNIQUE: Noncontrast axial T1 spin echo, axial T2 fast spin echo, sagittal and axial FLAIR, coronal T2 fast spin echo, axial gradient echo, axial diffusion and ADC through the brain. After the administration of contrast, axial and coronal and sagittal T1 spin echo with fat saturation through the brain. COMPARISON: [facility], CT, CT HEAD/BRAIN WO CON, 05/24/2023, 13:16. FINDINGS: Image quality: Excellent. CSF spaces: The basal cisterns remain patent, although basal cisterns appear mildly narrowed No extra-axial fluid collections. Ventricles are normal in size and shape. Brain: There is an infiltrating, irregular, peripheral enhancing mass seen that is centered within the right frontal lobe. In greatest axial dimension, this measures 8 x 6.7 cm in greatest axial dimension, with a craniocaudal extent 5.3 cm. This mass crosses the midline across the corpus callosum to involve the deep white matter the left frontal lobe. There is significant midline shift of 14 mm. Surrounding moderate edema can be seen. Portions of the mass (particularly peripherally) demonstrate abnormal diffusion-weighted signal, with associated dark signal on the ADC map. This is reflective of the highly cellular nature of this tumor. Minimal areas hemosiderin deposition can be seen associated with this mass. No additional masses are seen. No midline shift. There is cerebral volume loss for age. There is periventricular white matter chronic small vessel ischemic change. The brainstem appears normal. Diffusion-weighted images demonstrate no acute ischemic insults. Normal intravascular flow voids are present. Skull and face: Calvarial marrow is normal in signal. Orbits appear normal. Sinuses: Moderate mucosal thickening can be seen involving the left maxillary sinus. Mild mucosal thickening is seen elsewhere within the paranasal sinuses. No abnormal fluid is seen within the mastoid air cells. 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 This mass causes mass effect, with midline shift of 14 mm. The mass crosses the midline across the corpus callosum to involve the left frontal lobe medially. Mild internal hemorrhage can be seen involving the mass. Dictated by: Stoney Franklin M.D. on 05/24/2023 at 14:30 Approved by: Stoney Franklin M.D. on 05/24/2023 at 14:35
[2023-05-24 13:43] LABS: Add Manual Diff / Slide Review NO; Basophils Absolute Auto 0 /uL (0-100); Basophils Percent Auto 0.4 % (0-2); Eosinophils Absolute Auto 0 /uL (0-450); Eosinophils Percent Auto 0.3 % (2-4); Hematocrit 39.6 % (36-46); Hemoglobin 13.6 g/dL (12.0-16.0); Lymphocytes Absolute Auto 1900 /uL (1100-4500); Lymphocytes Percent Auto 17.5 % (25-40); Mean Corpuscular HGB Conc 34.4 % (30-36); Mean Corpuscular Hemoglobin 29.9 PG (26-34); Mean Corpuscular Volume 86.8 fL (80-100); Monocytes Absolute Auto 900 /uL (0-900); Neutrophils Absolute Auto 7900 /uL (1500-7000); Neutrophils Percent Auto 73.8 % (50-75); Platelet Count 390 X10^3/uL (150-400); Red Blood Cell Count 4.56 X10^6/uL (4.0-5.2); Red Cell Distribution Width 13.2 % (11.6-14.8); White Blood Cell Count 10.7 X10^3/uL (4.5-11.0)
[2023-05-24 13:55] LABS: Alanine Aminotransferase 30 IU/L (<35); Albumin Globulin Ratio 1.3 (1.0-2.8); Alkaline Phosphatase 59 U/L (38-126); Aspartate Aminotransferase 25 IU/L (14-36); BUN Creatinine Ratio 16.7 (6-22); Bilirubin Total 1.5 mg/dL (0.2-1.3); Blood Urea Nitrogen 13 mg/dL (7-17); Calcium 9.7 mg/dL (8.4-10.2); Carbon Dioxide 30 mmol/L (22-32); Chloride 99 mmol/L (98-107); Creatine Kinase 72 U/L (30-135); Estimated Glomerular Filt Rate > 60 mL/min (>60); Globulin 3.1 g/dL (1.7-4.1); Glucose 105 mg/dL (80-110); HEMOLYSIS < 15 (0-50); Lipase 175 U/L (23-300); Magnesium 2.1 mg/dL (1.6-2.3); Potassium 3.7 mmol/L (3.4-5.1); Sodium 137 mmol/L (137-145); Total Protein 7.1 g/dL (6.3-8.2)
[2023-05-24 13:56] LABS: Ammonia (NH3) < 9 umol/L (9-30)
[2023-05-24 14:06] LABS: Troponin I < 0.012 ng/mL (0.01-0.034)
[2023-05-24] MEDS: DEXAMETHASONE 10 MG/ML VIAL IV (14:11)
[2023-05-24 14:12] LABS: INR 1.3 (0.9-1.3); Prothrombin Time 14.4 SECONDS (10.1-12.7)
[2023-05-24 14:15] LABS: PTT Partial Thromboplastin Tim 31 SECONDS (26-36)
[2023-05-24 14:22] LABS: COVID19 -Nasal RAPID Negative (Negative)
--- NOTE | 2023-05-24 16:37 | PC.NURSE ---
SORTING COWS WORKER note: provider consulted with Dr. Zaid murguia, bed availability depending.
[2023-05-24] MEDS: levETIRAcetam 500 MG in SODIUM CHLORIDE 0.9% 100 ML 420 MG IV (18:27)
--- NOTE | 2023-05-24 18:31 | CM.SWNOTE ---
ED WEB CONTENT WRITER Note WEB CONTENT WRITER receives consult due to patient's increase in weakness. Patient presents to ED via EMS with increased weakness, inability to transfer, hx of covid 2 weeks ago. Patient's spouse is Dr. Altamirano. Per ED provider, MRI shows mild internal hemorrhage with mass within the right frontal lobe. Plan: Patient to be transferred to [facility] for higher level of care. DCPs to identify appropriate POC. MINDY Villegas
[2023-05-24 18:46] LABS: Appearance Urine UA CLEAR; Bilirubin Urine UA NEGATIVE (NEGATIVE); Color Urine UA YELLOW; Glucose Urine UA NEGATIVE (Negative); Ketones Urine UA NEGATIVE (NEGATIVE); Leukocyte Esterase Urine UA NEGATIVE (NEGATIVE); Nitrite Urine UA NEGATIVE (Negative); Occult Blood Urine UA NEGATIVE (Negative); Protein Urine UA NEGATIVE (Negative)
[2023-05-24 18:47] LABS: pH Urine UA 6.5 (4.5-8.0)
[2023-05-24 18:58] LABS: Bacteria Urine None Seen; Culture Indicated Urine Cult Not Indicated; Hyaline Casts Urine 0-1/LPF; RBC Urine 0-1/HPF (0-5/HPF); Squamous Epithelial Cell Urine 0-1 /HPF (0-5/HPF); WBC Urine 0-1/HPF (0-5/HPF)
== END 2023-05-24 18:40 | disposition short-term general hospital (02) ==
PROVIDERS: Emergency Provider Emergency Medicine; Family Provider Family Medicine; PCP Family Medicine
DX: G93.89 Other specified disorders of brain (principal); R90.89 Other abnormal findings on diagnostic imaging of central nervous system; R53.1 Weakness; Z79.01 Long term (current) use of anticoagulants; Z20.822 Contact with and (suspected) exposure to COVID-19
CPT/HCPCS: 36415; 70450; 70553; 71045; 80053; 81001; 82140; 82550; 83690; 83735; 84484; 85025; 85610; 85730; 87635; 93005; 93010; 96365; 96375; 99285; C9803; J1100; J1953